=== PATIENT | female | born 1990 | race Caucasian/White ===

== ENCOUNTER 2018-07-05 10:23 | Emergency (ER) | payer OTHER ==
[2018-07-05 11:00] LABS: Absolute Lymphocytes (CBC) 1.4 K/uL (0.7-4.9); Absolute Monocytes 0.3 K/uL (0.1-1.3); Absolute Neutrophil 5.6 K/uL (1.8-8.0); Basophils % 0.6 % (0-1.3); Eosinophils % 1.7 % (0-4.4); Hematocrit 35.6 % (36.0-45.0); Lymphocytes % 18.3 % (15.3-44.8); MPV 7.8 fL (7.6-11.3); Monocytes % 4.1 % (3.3-12.3); RBC Red Blood Cell Count 4.24 M/uL (3.86-4.86)
[2018-07-05 11:32] LABS: BUN Blood Urea Nitrogen 6 mg/dL (7-18); Bicarbonate 23 mmol/L (21-32); Glucose Level 188 mg/dL (74-106); HCG, Quantitative 28109 mIU/mL (1-3); Potassium 3.6 mmol/L (3.5-5.1); Sodium Level 140 mmol/L (136-145)
[2018-07-05 12:16] LABS: Urine Bacteria 20-50 /HPF (<20)
[2018-07-05 12:17] LABS: Urine Amorphous Sediment 3+ /HPF (NONE SEEN); Urine Culture Reflex Order REFLEXED; Urine Mucus 1+ /HPF (NONE SEEN); Urine Yeast PRESENT (NONE SEEN)
--- NOTE | 2018-07-05 12:19 | ER ---
Nurse's Notes [facility] Name: Jessica Kearns Age: 27 yrs Sex: Female : 1990 Arrival Date: 07/05/2018 Time: 10:27 Bed 20 Private MD: Diagnosis: Threatened ;Candidiasis of vulva and vagina;Urinary tract infection, site not specified Presentation: 07/05 10:31 Presenting complaint: Patient states: I had some vaginal bleeding with small clots, I sg contacted by Senior Revenue Accountant at [facility] and they instructed me to come to the ER for evaluation due to the bleeding and how far along I am. Transition of care: patient was not received from another setting of care. Onset of symptoms was July 05, 2018. Risk Assessment: Do you want to hurt yourself or someone else? Patient reports no desire to harm self or others. Initial Sepsis Screen: Does the patient meet any 2 criteria? No. Patient's initial sepsis screen is negative. Does the patient have a suspected source of infection? No. Patient's initial sepsis screen is negative. Care prior to arrival: None. 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 - Social history:: Smoking status: Patient/guardian denies using tobacco. - Ebola Screening: : Patient negative for fever greater than or equal to 101.5 degrees Fahrenheit, and additional compatible Ebola Virus Disease symptoms Patient denies exposure to infectious person Patient denies travel to an Ebola-affected area in the 21 days before illness onset No symptoms or risks identified at this time. Screenin:50 Abuse screen: Denies threats or abuse. Denies injuries from another. Nutritional aj1 screening: No deficits noted. Tuberculosis screening: No symptoms or risk factors identified. 12:33 Fall Risk None identified. la1 Assessment: 10:50 General: Appears in no apparent distress. comfortable. aj1 10:50 Obstetrical Assessment: Patient reports vaginal bleeding. Pain: Pain: Denies pain. aj1 Neuro: Level of Consciousness is awake, alert, obeys commands. Cardiovascular: Patient's skin is warm and dry. Respiratory: Airway is patent Respiratory effort is even, unlabored, Respiratory pattern is regular, symmetrical. GI: No signs and/or symptoms were reported involving the gastrointestinal system. : Reports vaginal bleeding that is bright red, with clots. EENT: No signs and/or symptoms were reported regarding the EENT system. Derm: No signs and/or symptoms reported regarding the dermatologic system. Skin is pink, warm \T\ dry. normal. Musculoskeletal: No signs and/or symptoms reported regarding the musculoskeletal system. Circulation, motion, and sensation intact. 10:51 Reassessment: Dr. Briggs at bedside to perform ultrasound. aj1 10:52 Pain:. aj1 12:32 Reassessment: Patient appears in no apparent distress at this time. No changes from la1 previously documented assessment. Patient and/or family updated on plan of care and expected duration. Pain level reassessed. Patient is alert, oriented x 3, equal unlabored respirations, skin warm/dry/pink. Vital Signs: 10:30 BP 102 / 64; Pulse 100; Resp 17; Temp 98.6; Pulse Ox 100% on R/A; Weight 97.52 kg; sg Height 5 ft. 3 in. (160.02 cm); Pain 0/10; 12:32 BP 104 / 64; Pulse 94; Resp 18; Temp 98.2; Pulse Ox 100% on R/A; la1 10:30 Body Mass Index 38.09 (97.52 kg, 160.02 cm) sg ED Course: 10:27 Patient arrived in ED. sg 10:28 Maddison Pace FNP-C is [facility]. kb 10:28 Hang Briggs MD is Attending Physician. kb 10:33 Triage completed. sg 10:33 Arm band placed on. sg 10:37 Lisbeth Dueñas, LILLY is Primary Nurse. aj1 10:50 Patient has correct armband on for positive identification. aj1 10:50 Inserted saline lock: 22 gauge in right antecubital area, using aseptic technique. aj1 Blood collected. 10:50 No provider procedures requiring assistance completed. aj1 11:25 Urine collected: clean catch specimen, cloudy. dh3 12:33 IV discontinued, intact, bleeding controlled, No redness/swelling at site. Pressure la1 dressing applied. Administered Medications: No medications were administered Outcome: 12:18 Discharge ordered by . augusto 12:33 Discharged to home ambulatory. la1 12:33 Condition: good 12:33 Discharge instructions given to patient, Instructed on discharge instructions, follow up and referral plans. medication usage, Demonstrated understanding of instructions, follow-up care, medications, Prescriptions given X 1. 12:34 Patient left the ED. la1 Signatures: Maddison Pace, HANDTOOLS REPAIRER-C HANDTOOLS REPAIRER-CkLisbeth Wallace RN RN aj1 Teddy Lora RN RN sg Tanmay Cnadelario RN RN la1 Arianna Song 3 Corrections: (The following items were deleted from the chart) 10:54 10:52 General: Appears in no apparent distress. comfortable, aj1 aj1
--- NOTE | 2018-07-05 12:20 | EDPHYS ---
Physician Documentation [facility] Name: Jessica Kearns Age: 27 yrs Sex: Female : 1990 Arrival Date: 07/05/2018 Time: 10:27 Bed 20 Private MD: ED Physician Hang Briggs HPI: 07/05 10:35 This 27 yrs old Female presents to ER via Ambulatory with complaints of kb Vaginal Bleeding, + Preg <12wks. 10:35 The patient presents to the emergency department with vaginal bleeding, that is light. kb The estimated gestational age is 13 weeks. course: care: at a clinic, Leakage of Fluid: none appreciated, Ultrasound: the patient had an ultrasound, which was normal. Previous pregnancies: in previous pregnancies patient has had. Associated signs and symptoms: Pertinent positives: vaginal bleeding, Pertinent negatives: abdominal pain, chest pain, diarrhea, dysuria, fever, frequency, nausea, ruptured membranes, seizure, shortness of breath, vaginal discharge, vomiting. The patient has not experienced similar symptoms in the past. The patient has not recently seen a physician. 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 Called OB and was told to get kb checked out as precaution. Reports she has had 2 US that confirmed IUP and everything was normal. 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 - Social history:: Smoking status: Patient/guardian denies using tobacco. - Ebola Screening: : Patient negative for fever greater than or equal to 101.5 degrees Fahrenheit, and additional compatible Ebola Virus Disease symptoms Patient denies exposure to infectious person Patient denies travel to an Ebola-affected area in the 21 days before illness onset No symptoms or risks identified at this time. ROS: 10:34 Constitutional: Negative for fever, chills, and weight loss, Cardiovascular: Negative kb for chest pain, palpitations, and edema, Respiratory: Negative for shortness of breath, cough, wheezing, and pleuritic chest pain, Abdomen/GI: Negative for abdominal pain, nausea, vomiting, diarrhea, and constipation, Back: Negative for injury and pain, MS/Extremity: Negative for injury and deformity, Skin: Negative for injury, rash, and discoloration, Neuro: Negative for headache, weakness, numbness, tingling, and seizure. 10:34 : Positive for vaginal bleeding. Exam: 10:33 Constitutional: This is a well developed, well nourished patient who is awake, alert, kb and in no acute distress. Head/Face: Normocephalic, atraumatic. Chest/axilla: Normal chest wall appearance and motion. Nontender with no deformity. No lesions are appreciated. Cardiovascular: Regular rate and rhythm with a normal S1 and S2. No gallops, murmurs, or rubs. Normal PMI, no JVD. No pulse deficits. Respiratory: Lungs have equal breath sounds bilaterally, clear to auscultation and percussion. No rales, rhonchi or wheezes noted. No increased work of breathing, no retractions or nasal flaring. Skin: Warm, dry with normal turgor. Normal color with no rashes, no lesions, and no evidence of cellulitis. MS/ Extremity: Pulses equal, no cyanosis. Neurovascular intact. Full, normal range of motion. Neuro: Awake and alert, GCS 15, oriented to person, place, time, and situation. Cranial nerves II-XII grossly intact. Motor strength 5/5 in all extremities. Sensory grossly intact. Cerebellar exam normal. Normal gait. 10:33 Abdomen/GI: Inspection: abdomen appears normal, Bowel sounds: normal, in all quadrants, Palpation: soft, in all quadrants, mild abdominal tenderness, in the right lower quadrant and left lower quadrant. Vital Signs: 10:30 BP 102 / 64; Pulse 100; Resp 17; Temp 98.6; Pulse Ox 100% on R/A; Weight 97.52 kg; sg Height 5 ft. 3 in. (160.02 cm); Pain 0/10; 12:32 BP 104 / 64; Pulse 94; Resp 18; Temp 98.2; Pulse Ox 100% on R/A; la1 10:30 Body Mass Index 38.09 (97.52 kg, 160.02 cm) MDM: 10:28 Patient medically screened. kb 10:33 Data reviewed: vital signs, nurses notes. Data interpreted: Pulse oximetry: on room air kb is 100 %. Interpretation: normal. 11:09 ED course: Bedside US performed by me. FHT obtained 146. . kb 12:17 Counseling: I had a detailed discussion with the patient and/or guardian regarding: the kb historical points, exam findings, and any diagnostic results supporting the discharge/admit diagnosis, lab results, the need for outpatient follow up, an OB/Gyne specialist, to return to the emergency department if symptoms worsen or persist or if there are any questions or concerns that arise at home. 07/05 10:32 Order name: Quantitative Hcg; Complete Time: 11:54 kb 07/05 10:32 Order name: Abo/rh Typing; Complete Time: 11:54 kb 07/05 10:32 Order name: Basic Metabolic Panel; Complete Time: 11:54 kb 07/05 10:32 Order name: CBC with Diff; Complete Time: 11:08 kb 07/05 11:25 Order name: Urine Microscopic Only; Complete Time: 12:17 kb 07/05 11:27 Order name: Urine Dipstick--Ancillary (enter results); Complete Time: 12:33 ms 07/05 10:32 Order name: IV Saline Lock; Complete Time: 10:51 kb 07/05 10:32 Order name: Labs collected and sent; Complete Time: 10:51 kb 07/05 10:32 Order name: NPO; Complete Time: 10:51 kb 07/05 11:17 Order name: Urine Dipstick-Ancillary (obtain specimen); Complete Time: 11:26 kb 07/05 11:27 Order name: Urine --Ancillary (enter results); Complete Time: 12:33 ms 07/05 12:19 Order name: Urine Culture EDMS Administered Medications: No medications were administered Disposition: 22:08 Co-signature as Attending Physician, Hang Briggs MD Available for consultation at ps1 all times . Disposition: 07/05/18 12:18 Discharged to Home. Impression: Threatened , Candidiasis of vulva and vagina, Urinary tract infection, site not specified. - Condition is Stable. - Discharge Instructions: Vaginal Bleeding During , Second Trimester, and Urinary Tract Infection, Threatened Miscarriage, [id number], Pelvic Rest. - Prescriptions for Macrobid 100 mg Oral Capsule - take 1 capsule by ORAL route every 12 hours for 5 days; 10 capsule. - Work release form, Medication Reconciliation Form, Thank You Letter, Antibiotic Education, Prescription Opioid Use form. - Follow up: Emergency Department; When: As needed; Reason: Worsening of condition. Follow up: Private Physician; When: 2 - 3 days; Reason: Recheck today's complaints, Continuance of care, Re-evaluation by your physician. Signatures: Dispatcher [employer] EDMaddison Castellanos, KACI MAHAN-Teddy Escalera, RN RN sg Tanmay Candelario RN RN la1 Hang Briggs MD MD ps1 Corrections: (The following items were deleted from the chart) 11:10 10:35 course: care: at a clinic, Leakage of Fluid: none appreciated, kb Ultrasound: the patient had an ultrasound, which was normal, kb 12:34 12:18 07/05/2018 12:18 Discharged to Home. Impression: Threatened ; Candidiasis la1 of vulva and vagina; Urinary tract infection, site not specified. Condition is Stable. Discharge Instructions: Vaginal Bleeding During , Second Trimester, Threatened Miscarriage, [id number], Pelvic Rest. Forms are Medication Reconciliation Form, Thank You Letter, Antibiotic Education, Prescription Opioid Use. Follow up: Emergency Department; When: As needed; Reason: Worsening of condition. Follow up: Private Physician; When: 2 - 3 days; Reason: Recheck today's complaints, Continuance of care, Re-evaluation by your physician. kb
[2018-07-05 12:32] LABS: Urine Blood 3+ (NEG); Urine Glucose 3+ (NEG); Urine Protein TRACE (NEG); Urine pH 5.5 (5.0-7.0)
== END 2018-07-05 12:34 | disposition home or self-care (01) ==
LOC: ER 10:23
DX: O20.0 Threatened abortion (principal); O98.811 Other maternal infectious and parasitic diseases complicating pregnancy, first trimester; B37.3 Candidiasis of vulva and vagina; O23.41 Unspecified infection of urinary tract in pregnancy, first trimester; Z3A.13 13 weeks gestation of pregnancy
CPT/HCPCS: 36415; 80048; 81003; 81015; 81025; 84702; 85025; 86900; 86901; 87086; 87088; 99283

== ENCOUNTER 2018-10-09 23:58 | Emergency (ER) | payer OTHER ==
--- OUTSIDE RECORDS SUMMARY | 2018-10-10 00:03 | XMS REPORT ---
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 (test code=NE%) 61.5 % 35.0-73.0 LYMPH % (test code=LY%) 27.6 % 20.0-55.0 MONO % (test code=MO%) 6.8 % 2.5-10.0 EOSINOPH % (test code=EO%) 3.1 % 0.0-5.0 BASOPHIL % (test code=BA%) 0.7 % 0.0-2.0 IG % (test code=IG%) 0.3 % 0.0-0.8 NRBC% (test code=NRBC%) 0.0 % 0.0-0.2 MANDIFF (test code=MDIFF) NO NO RBC MORPH (test code=RBCMOR) NORMAL SERUM [id number] 17:52:00 Test Item Value Reference Range Comments PREG SRM (test code=PGS) NEGATIVE NEGATIVE
[2018-10-10] MEDS ORDERED: NA CHLORIDE 0.9% 1,000 ML ONE (01:14)
[2018-10-10 01:38] LABS: Absolute Lymphocytes (CBC) 1.8 K/uL (0.7-4.9); Basophils % 0.4 % (0-1.3); Hematocrit 30.7 % (36.0-45.0); Lymphocytes % 24.1 % (15.3-44.8); MPV 8.1 fL (7.6-11.3); RBC Red Blood Cell Count 3.94 M/uL (3.86-4.86)
[2018-10-10 01:46] LABS: Urine Blood NEGATIVE (NEG); Urine Glucose NEGATIVE (NEG); Urine Protein TRACE (NEG); Urine Specific Gravity 1.025 (1.005-1.030); Urine pH 6.5 (5.0-7.0)
[2018-10-10 01:48] LABS: ALT/SGPT 7 U/L (12-78); AST/SGOT 7 U/L (15-37); Albumin 2.4 g/dL (3.4-5.0); Alkaline Phosphatase 103 U/L (45-117); BUN Blood Urea Nitrogen 6 mg/dL (7-18); Bicarbonate 22 mmol/L (21-32); Bilirubin Total 0.3 mg/dL (0.2-1.0); Glucose Level 160 mg/dL (74-106); Potassium 3.6 mmol/L (3.5-5.1); Protein, Total 6.3 g/dL (6.4-8.2); Sodium Level 139 mmol/L (136-145)
[2018-10-10 02:27] LABS: Calcium Oxalate Crystals- Ur FEW (NONE SEEN); Urine Bacteria <20 /HPF (<20); Urine Culture Reflex Order NOT NEEDED; Urine RBC <5 /HPF (NONE SEEN)
--- NOTE | 2018-10-10 03:31 | ER ---
Nurse's Notes [facility] Name: Jessica Kearns Age: 28 yrs Sex: Female : 1990 Arrival Date: 10/10/2018 Time: 00:06 Bed 16 Private MD: Diagnosis: Lightheaded;Gestational Diabetes;High risk Presentation: 10/10 00:09 Presenting complaint: EMS states: Called for patient who was [place] [address] [place] tr5 she all of a sudden became dizzy, light headed, felt like she was going to pass out; Patient is about 30 weeks ; Vitals WNL per EMS, 105/71, HR 98, RR 18, 98% on RA; Hx of diabetes, patient states last meal at 1800. Transition of care: patient was not received from another setting of care. Onset of symptoms was October 10, 2018. Risk Assessment: Do you want to hurt yourself or someone else? Patient reports no desire to harm self or others. Initial Sepsis Screen: Does the patient meet any 2 criteria? No. Patient's initial sepsis screen is negative. Does the patient have a suspected source of infection? No. Patient's initial sepsis screen is negative. Note Patient states she has not taken her Insulin x 1 week due to no prescription. Care prior to arrival: Glucose check: 139. 00:09 Method Of Arrival: EMS: [facility] tr5 00:09 Acuity: BAYLEE 3 tr5 Triage Assessment: 00:00 General: Appears in no apparent distress. Behavior is calm. Neuro: Level of tr5 Consciousness is awake, alert, obeys commands, Oriented to person, place, time, situation. Respiratory: Respiratory effort is even, unlabored. Derm: Skin is intact, Skin is dry, Skin is normal. 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 - Social history:: Smoking status: Patient/guardian denies using tobacco. - Ebola Screening: : No symptoms or risks identified at this time. Screenin:05 Abuse screen: Denies threats or abuse. Nutritional screening: No deficits noted. tr5 Tuberculosis screening: No symptoms or risk factors identified. Fall Risk None identified. Assessment: 00:00 Reassessment: heart tones in 130's per L\T\D. tr5 00:06 Pain: Denies pain. tr5 00:55 Reassessment: L\T\D at pt's beside. Per Dr. Mejia to recheck heart tones with tr5 Doppler. L\T\D RN reports heart tones to be in the 140's. 01:26 Reassessment: Patient and/or family updated on plan of care and expected duration. Pain tr5 level reassessed. Patient is alert, oriented x 3, equal unlabored respirations, skin warm/dry/pink. 02:30 Reassessment: Patient and/or family updated on plan of care and expected duration. Pain tr5 level reassessed. Patient is alert, oriented x 3, equal unlabored respirations, skin warm/dry/pink. Patient denies pain at this time. 03:23 Reassessment: Patient and/or family updated on plan of care and expected duration. Pain tr5 level reassessed. Patient is alert, oriented x 3, equal unlabored respirations, skin warm/dry/pink. Patient states feeling better. Vital Signs: 10/09 23:50 BP 106 / 71; Pulse 88; tr5 10/10 00:10 BP 106 / 53; Pulse 90; Resp 18; Temp 98.5(O); Pulse Ox 97% on R/A; Weight 89.81 kg; tr5 Height 4 ft. 11 in. (149.86 cm); Pain 0/10; 01:25 BP 109 / 68; Pulse 94; Resp 16; Pulse Ox 100% on R/A; tr5 02:30 BP 110 / 72; Pulse 90; Resp 16; Pulse Ox 99% on R/A; tr5 00:10 Body Mass Index 39.99 (89.81 kg, 149.86 cm) tr5 ED Course: 00:00 Inserted saline lock: 20 gauge in left antecubital area, using aseptic technique. By tr5 L\T\D. 00:05 Patient has correct armband on for positive identification. Placed in gown. Bed in low tr5 position. Call light in reach. Door closed. Noise minimized. Warm blanket given. 00:06 Patient arrived in ED. tr5 00:11 Hang Briggs MD is Attending Physician. ps1 00:11 Triage completed. tr5 00:12 Arm band placed on left wrist. tr5 00:16 Gulshan Mckeon, RN is Primary Nurse. tr5 04:00 No provider procedures requiring assistance completed. IV discontinued. tr5 Administered Medications: 01:00 Drug: NS 0.9% 1000 ml Route: IV; Rate: 1000 ml; Site: left antecubital; tr5 Point of Care Testing: Blood Glucose: 00:00 Blood Glucose: 188 mg/dL; tr5 Ranges: Outcome: 03:30 Discharge ordered by MD. ps1 04:00 Discharged to home ambulatory. tr5 04:00 Condition: stable 04:00 Discharge instructions given to patient, Instructed on discharge instructions, follow up and referral plans. Demonstrated understanding of instructions, follow-up care. 04:02 Patient left the ED. tr5 Signatures: Hang Briggs MD MD ps1 Gulshan Mckeon, RN RN tr5 Corrections: (The following items were deleted from the chart) 00:18 00:09 Presenting complaint: EMS states: Called for patient who was [place] [address] tr5 when she all of a sudden became dizzy, light headed, felt like she was going to pass out; Patient is about 30 weeks ; Vitals WNL per EMS; Hx of diabetes, patient states last meal at 1800 tr5
--- NOTE | 2018-10-10 03:32 | EDPHYS ---
Physician Documentation [facility] Name: Jessica Kearns Age: 28 yrs Sex: Female : 1990 Arrival Date: 10/10/2018 Time: 00:06 Bed 16 Private MD: ED Physician Hang Briggs HPI: 10/10 03:23 This 28 yrs old Female presents to ER via EMS with complaints of Near Syncope.ps1 03:23 GDM IDDM. Previous preg . Poor control. Unknown A1C. States her BS is ps1 typically high. Sees Dr. Moreno no high risk. Presenting for lightheaded after singing [place]. States that she believed she was hypoglycemic and hypotensive. Her BP was normal and BS WNL. No cramp, VB, CTX, LOM. 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 - Social history:: Smoking status: Patient/guardian denies using tobacco. - Ebola Screening: : No symptoms or risks identified at this time. ROS: 03:23 Constitutional: Negative for fever, chills, and weight loss, Eyes: Negative for injury, ps1 pain, redness, and discharge, ENT: Negative for injury, pain, and discharge, Cardiovascular: Negative for chest pain, palpitations, and edema, Respiratory: Negative for shortness of breath, cough, wheezing, and pleuritic chest pain, Abdomen/GI: Negative for abdominal pain, nausea, vomiting, diarrhea, and constipation, Back: Negative for injury and pain, MS/Extremity: Negative for injury and deformity, Skin: Negative for injury, rash, and discoloration. 03:23 Neuro: Positive for near syncope. Exam: 03:23 Constitutional: This is a well developed, well nourished patient who is awake, alert, ps1 and in no acute distress. Head/Face: Normocephalic, atraumatic. Eyes: Pupils equal round and reactive to light, extra-ocular motions intact. Lids and lashes normal. Conjunctiva and sclera are non-icteric and not injected. Chest/axilla: Normal chest wall appearance and motion. Nontender with no deformity. No lesions are appreciated. Cardiovascular: Regular rate and rhythm. No gallops, murmurs, or rubs. Normal PMI, no JVD. No pulse deficits. Respiratory: Lungs have equal breath sounds bilaterally, clear to auscultation and percussion. No rales, rhonchi or wheezes noted. No increased work of breathing, no retractions or nasal flaring. Abdomen/GI: Soft, non-tender, with normal bowel sounds. No distension or tympany. No guarding or rebound. No evidence of tenderness throughout. 03:23 Skin: Warm, dry with normal turgor. Normal color with no rashes, no lesions, and no evidence of cellulitis. MS/ Extremity: Pulses equal, no cyanosis. Neurovascular intact. Full, normal range of motion. Neuro: Awake and alert, GCS 15, oriented to person, place, time, and situation. Cranial nerves II-XII grossly intact. Sensory grossly intact. 03:23 Abdomen/GI: GRAVID.. Vital Signs: 10/09 23:50 BP 106 / 71; Pulse 88; tr5 10/10 00:10 BP 106 / 53; Pulse 90; Resp 18; Temp 98.5(O); Pulse Ox 97% on R/A; Weight 89.81 kg; tr5 Height 4 ft. 11 in. (149.86 cm); Pain 0/10; 01:25 BP 109 / 68; Pulse 94; Resp 16; Pulse Ox 100% on R/A; tr5 02:30 BP 110 / 72; Pulse 90; Resp 16; Pulse Ox 99% on R/A; tr5 00:10 Body Mass Index 39.99 (89.81 kg, 149.86 cm) tr5 MDM: 00:53 Patient medically screened. ps1 03:30 Data reviewed: vital signs, nurses notes, lab test result(s), and as a result, I will ps1 discharge patient. Counseling: I had a detailed discussion with the patient and/or guardian regarding: the historical points, exam findings, and any diagnostic results supporting the discharge/admit diagnosis, lab results, the need for outpatient follow up, an OB/Gyne specialist, to return to the emergency department if symptoms worsen or persist or if there are any questions or concerns that arise at home. ED course: Observed in OB triage and ED. Labs cw mild dehydration. Pt to follow up with Dr. Moreno for reevaluation. . 10/10 00:44 [facility] name[facility] 10/10 00:44 Order name: CMP ps1 10/10 00:44 Order name: [facility]c [facility] 10/10 01:12 Order name: Urine Dipstick--Ancillary (enter results) cm6 10/10 01:13 Order name: Urine Microscopic Only; Complete Time: 02:28 cm6 10/10 01:42 Order name: CBC with Automated Diff EDIL 10/10 00:44 Order name: Urine Dipstick-Ancillary (obtain specimen); Complete Time: 01:12 ps1 10/10 00:44 Order name: EKG; Complete Time: 00:46 ps1 10/10 00:57 Order name: EKG - Nurse/Tech; Complete Time: 01:25 tr5 10/10 01:47 Order name: Urine Dipstick-Ancillary; Complete Time: 01:47 EDMS 10/10 01:48 Order name: Comprehensive Metabolic Panel [facility] 10/10 02:56 Order name: Hemoglobin A1c [facility]IL Administered Medications: 01:00 Drug: NS 0.9% 1000 ml Route: IV; Rate: 1000 ml; Site: left antecubital; tr5 Point of Care Testing: Blood Glucose: 00:00 Blood Glucose: 188 mg/dL; tr5 Ranges: Critical Glucose Levels:Adult <50 mg/dl or >400 mg/dl <40 mg/dl or >180 mg/dl Disposition: 10/10/18 03:30 Discharged to Home. Impression: Lightheaded, Gestational Diabetes, High risk . - Condition is Stable. - Discharge Instructions: Dehydration, Adult, Gestational Diabetes Mellitus, Diagnosis. - Medication Reconciliation Form, Thank You Letter, Antibiotic Education, Prescription Opioid Use form. - Follow up: Private Physician; When: Tomorrow; Reason: Further diagnostic work-up, Recheck today's complaints, Continuance of care. Follow up: Emergency Department; When: As needed; Reason: If symptoms return, Worsening of condition. - Problem is an ongoing problem. - Symptoms have improved. Signatures: Dispatcher [employer] EDHang Butterfield MD MD ps1 Gulshan Mckeon RN RN tr5 Corrections: (The following items were deleted from the chart) 04:02 03:30 10/10/2018 03:30 Discharged to Home. Impression: Lightheaded; Gestational tr5 Diabetes; High risk . Condition is Stable. Forms are Medication Reconciliation Form, Thank You Letter, Antibiotic Education, Prescription Opioid Use. Follow up: Private Physician; When: Tomorrow; Reason: Further diagnostic work-up, Recheck today's complaints, Continuance of care. Follow up: Emergency Department; When: As needed; Reason: If symptoms return, Worsening of condition. Problem is an ongoing problem. Symptoms have improved. ps1
--- NOTE | 2018-10-10 07:33 | EKG ---
Test Date: 2018-10-10 Test Time: 01:20:36 Web Software Engineer: TR MEASUREMENT RESULTS: Intervals: Rate: 82 [place]: 140 QRSD: 78 QT: 388 QTc: 453 [place]: P: 24 [place]: 140 QRS: 24 T: -1 INTERPRETIVE STATEMENTS: Normal sinus rhythm Normal ECG No previous ECG available for comparison Electronically Signed On 10-10-18 07:33:14 CDT by Chu Parnell
== END 2018-10-10 04:02 | disposition home or self-care (01) ==
LOC: ER 23:58
DX: O24.414 Gestational diabetes mellitus in pregnancy, insulin controlled (principal); O09.93 Supervision of high risk pregnancy, unspecified, third trimester; Z3A.29 29 weeks gestation of pregnancy; Z88.0 Allergy status to penicillin; Z91.018 Allergy to other foods
CPT/HCPCS: 93005; 85025; 36415; 83036; 80053; 99284; J7030; 81003; 81015

== ENCOUNTER 2020-06-27 18:38 | Emergency (ER) | payer OTHER ==
--- OUTSIDE RECORDS SUMMARY | 2020-06-27 18:42 | XMS REPORT | Continuity of Care Document ---
:1990 Author Organization [facility] t Address [address] [place] [address] Care Team Providers Name Role Phone Elia Rodrigez DO Attending Clinician Vivek AVILEZ Attending Clinician Leodan Moreno MD Attending Clinician Tenzin AVILEZ L Attending Clinician Adelaide LOMBARDO Attending Clinician Unavailable Jeannette CAMPBELL Attending Clinician Unavailable DR HUMPHREY Attending Clinician Unavailable Doyle ESCOBAR Attending Clinician Unavailable DR GERALDINE Attending Clinician Unavailable Adelaide LOMBARDO Admitting Clinician Unavailable Jeannette CAMPBELL Admitting Clinician Unavailable DR HUMPHREY Admitting Clinician Unavailable Doyle ESCOBAR Admitting Clinician Unavailable DR GERALDINE Admitting Clinician Unavailable Problems Condition Condition Condition Status Onset Resolution Last Treating Co mments Source Name Details Category Date Date Treatment Clinician Date Toothache Toothache Problem Active 2019-03 [facility] 03[facility] Relationsh Relationsh Problem Active 2019-03 M at[facility] ip ip 03-20 da problems Problems 00:00: [facility] 00 [facility] 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 Post-traum 8- da atic atic 00:00: [facility] stress Stress 00 al disorder Disorder Health Outreac h Program Bipolar Bipolar Problem Active [facility] disorder Disorder 10-13 da 00:00: [facility] Morbid Morbid Problem Active [facility] obesity obesity [facility] due to due to l excess excess Outpati calories calories ent Clinics Body mass Body mass Problem Active [facility] index index [facility] - (BMI) (BMI) Memoria 40.0-44.9, 40.0-44.9, l adult adult [facility] 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 2 [facility] - diabetes diabetes Mem[facility] a mellitus mellitus l with with [facility] hyperglyce hyperglyce en t [facility] Clinics Shortness Shortness Problem Active [facility] of breath of breath [facility] - [facility] l [facility] Clinics Allergies, Adverse Reactions, Alerts Allergy Allergy Status Severity Reaction(s) Onset Inactive Treating Comm ents Source Name Type Date Date Clinician Pomrenateran Adverse Active anaphylaxis [facility] ate Reaction [facility] - [facility] Penicill Adverse Active hives [facility] amine Reaction [facility] - [facility] Adverse Active Info Not [facility] t y Reaction Available [facility] Social History Smoking Status Start Date Stop Date Source Former Smoker Jeanne Hernandez [facility] Health Outreach Program Medications Ordered Filled Start Stop Current Ordering Indication Dosage Frequency Signature Comments Components Source Medication Medication Date Date Medication? Clinician (SIG) Name Name Glimepiride Glimepiride Yes Juhi [address] [facility] 9-16 Millender with [facility] - 00:00: breakfast Memoria 00 or the l first main Outpati meal of ent the day Clinics glimepiride glimepiride No glimepirid [place] 2 mg tablet 2 mg tablet e 2 mg da TAKE 1 TAKE 1 tablet [facility] TABLET BY TABLET BY TAKE 1 al MOUTH EVERY MOUTH EVERY TABLET BY Health DAY WITH DAY WITH MOUTH Outrea c BREAKFAST BREAKFAST EVERY DAY h OR FIRST OR FIRST WITH Program MAIN MEAL MAIN MEAL BREAKFAST OF THE DAY OF THE DAY OR FIRST MAIN MEAL OF THE DAY Humulin N Humulin N No Humulin N [place] NPH U-100 NPH U-100 NPH U-100 da Insulin Insulin Insulin [facility] (isophane (isophane (isophane al susp) 100 susp) 100 susp) 100 Health unit/mL unit/mL unit/mL Outrea c subcutaneou subcutaneou subcutaneo h s s Program Humulin R Humulin R No Humulin R [place] Regular Regular Regular da U-100 U-100 U-100 [facility] Insulin 100 Insulin 100 Insulin al unit/mL unit/mL 100 Health injection injection unit/mL Ou treac solution solution injection h solution Program ibuprofen ibuprofen No ibuprofen [place] 600 mg tabs 600 mg tabs 600 mg da tabs [facility] oh [facility] Outre[facility] Program ibuprofen ibuprofen No ibuprofen [place] 600 mg 600 mg 600 mg da tablet tablet tablet [facility] metformin metformin No metformin [place] 1,000 mg 1,000 mg 1,000 mg da tablet tablet tablet Epis[facility]placed by [facility] metformin metformin No metformin [place] 500 mg 500 mg 500 mg da tablet TAKE tablet TAKE tablet [facility] 1 TABLET BY 1 TABLET BY TAKE 1 al MOUTH TWICE MOUTH TWICE TABLET BY Health A DAY WITH A DAY WITH MOUTH Ou treac A MEAL A MEAL TWICE A h DAY WITH A Program MEAL metformin metformin No metformin [facility] hydrochlori hydrochlori hydrochlor da de 500 mg de 500 mg socorro 500 [facility] tabs tabs mg tabs oh Health Outreac h Program metronidazo metronidazo No metronidaz [place] le 500 mg le 500 mg ole 500 mg da tablet tablet tablet [facility] nitrofurant nitrofurant No nitrofuran [place] oin oin toin da monohydrate monohydrate monohydrat [facility] /macrocryst /macrocryst e/macrocry al als 100 mg als 100 mg stals 100 Health capsule capsule mg capsule Out reac h Program Nystop Nystop No Nystop [place] 100,000 100,000 100,000 da unit/gram unit/gram unit/gram [facility] topical topical topical al powder powder powder Health Outreac h Program onetouch onetouch No onetouch [facility] christiano ultra christiano ultra christiano da ultra [facility] OneTouch OneTouch No OneTouch [facility] Ultra Blue Ultra Blue Ultra Blue da Test Strip Test Strip Test Strip [facility] Program oseltamivir oseltamivir No oseltamivi [facility] 75 mg 75 mg r 75 mg da capsule capsule capsule [facility] al [facility] Outreac [facility] Program proair hfa proair hfa No proair hfa [place] 108 mcg/act 108 mcg/act 108 d a aers aers mcg/act [facility] aers al [facility] Outreac [facility] Program albuterol albuterol No albuterol [place] sulfate HFA sulfate HFA sulfate da 90 90 HFA 90 [facility] mcg/actuati mcg/actuati mcg/actuat al on aerosol on aerosol ion Hea lth inhaler inhaler aerosol Outrea c inhaler h Program aripiprazol aripiprazol No aripiprazo [place] e 10 mg e 10 mg le 10 mg da tabs tabs tabs [facility] al [facility] Outreac [facility] Program aripiprazol aripiprazol No aripiprazo [place] e 10 mg e 10 mg le 10 mg da tablet TAKE tablet TAKE tablet [facility] 1 TABLET BY 1 TABLET BY TAKE 1 al MOUTH EVERY MOUTH EVERY TABLET BY Health DAY IN THE DAY IN THE MOUTH Ou treac MORNING MORNING EVERY DAY h IN THE Program MORNING aspirin 81 aspirin 81 No aspirin 81 [facility] mg chewable mg chewable mg d a tablet tablet chewable [facility] tablet al Health Outreac h Program BD Veo BD Veo No BD Veo [place] Insulin Insulin Insulin da Syringe Syringe Syringe [facility] Ultra-Fine Ultra-Fine Ultra-Fine al 1/2 mL 31 1/2 mL 31 1/2 mL 31 Health gauge x gauge x gauge x Outrea c " " " h Program Katherin Pandey Yes Juhi 1 tablet [facility] CitraNatal CitraNatal No CitraNatal [place] Assure 35 Assure 35 Assure 35 da mg iron-1 mg iron-1 mg iron-1 [facility] mg-50 mg-50 mg-50 al mg-300 mg mg-300 mg mg-300 mg Health oral pack oral pack oral pack Outreac h Program citranatal citranatal No citranatal [place] assure assure assure da combo pack combo pack combo pack [facility] TAKE 1 TAKE 1 TAKE 1 al CAPSULE AND CAPSULE AND CAPSULE Health 1 TABLET BY 1 TABLET BY AND 1 Outreac MOUTH ONCE MOUTH ONCE TABLET BY h A DAY A DAY MOUTH ONCE Program A DAY fluconazole fluconazole No fluconazol [place] 150 mg 150 mg e 150 mg da tablet tablet tablet [facility] Outreac h Program fluconazole fluconazole No fluconazol [place] 200 mg 200 mg e 200 mg da tablet tablet tablet [facility] Outreac h Program FreeStyle FreeStyle No FreeStyle [place] Lancets 28 Lancets 28 Lancets 28 da gauge gauge gauge [facility] Outreac h Program FreeStyle FreeStyle No FreeStyle [facility] Lite Meter Lite Meter Lite Meter da kit kit kit [facility] Outreac h Program gabapentin gabapentin No gabapentin [place] 100 mg caps 100 mg caps 100 mg da caps [facility] Outreac h Program gabapentin gabapentin No gabapentin [place] 100 mg 100 mg 100 mg da capsule capsule capsule [facility] Outreac h Program glimepiride glimepiride No glimepirid [place] 2 mg tabs 2 mg tabs e 2 mg da tabs [facility] Outreac h Program Vital Signs Vital Name Observation Time Observation Value Comments Source Height 2019-05-11 00:00:00 59 [in_i] [place] [facility] BMI (Body Mass 2019-05-11 00:00:00 39.9 kg/m2 [place] [employer] Mandaen Index) Health Outreach Program Body Weight 2019-05-11 00:00:00 197.6 [lb_av] [place] Procedures This patient has no known procedures. Plan of Care Planned Activity Planned Date Details Comments Source Future Appointment 2020-07-04 16:00:00 Julio Pond, [address] , [place], [place] Program [phone] Encounters Start End Encounter Admission Attending Care Care Encounter Source Date/Time Date/Time Type Type Clinicians Facility Department ID 2020-05-30 2020-05-30 Nima BRYANT [place] - [id number] Rosamaria at[facility]or 00:00:00 00:00:00 Jeanne Martinez da PSYD: 17[address] [facility] Epi scop [place], [facility] Outre [address] h , Ph. Program (979) --20072020-05-24 2020-05-[address] [facility] [id number] 00:00:00 00:00:00 Outreach [facility] [id number] [facility] [id number] LULY [id number] 388 2020-03-29 2020-03-29 Nima BRYANT [place] - [id number] [facility] 00:00:00 00:00:00 SagOle murphy[place]orda da PSYD: 1700 [facility] [address] [facility] , Ph. Program (979) --20072020-03-08 2020-03-08 Nima ROSASAUSTIN [place] - [id number] M [facility] 00:00:00 00:00:00 Mari Martineza da PSYD: 1700 [facility] E[facility] sc[facility] [address] h , Ph. Program (979) --20072020-02-09 2020-02-09 Nima Wilfredo MANNY [place] - [id number] M [facility] 00:00:00 00:00:00 Ole Martinezagorda da PSYD: 1700 Manda[facility] Epi scop [facility] [address] h , Ph. Program (979) --20072020-02-08 2020-02-08 Julio MANNY [place] - [id number] M [facility] 00:00:00 00:00:00 Gabby Pond MD: [facility]anda[facility] Epi scop 1700 [facility]OP - [facility] [address] Progr am , Ph. (979) --20072020-01-19 2020-01-19 Nima Wilfredo MANNY [place] - [id number] M [facility] 00:00:00 00:00:00 Mari Martineza da PSYD: 1700 [facility] Epi scop [address], [facility] Outre [address] h , Ph. Program (979) --20072020-01-06 2020-01-06 Nima BRYANT [place] - [id number] M [facility] 00:00:00 00:00:00 Jeanne Martinez da PSYD: 1700 Manda[facility] Epi scop [address], [facility] Outre [address] h , Ph. Program (979) --20072019-12-23 2019-12-23 Nima BRYANT [place] - [id number] M at[facility] 00:00:00 00:00:00 Jeanne Martinez da PSYD: 1700 Mandaen Epi scop [address], [facility] Outre [address] h , Ph. Program (979) --20072019-12-09 2019-12-09 Nima BRYANT [place] - [id number] M at[facility] 00:00:00 00:00:00 Mari Martineza da PSYD: 1700 Manda[facility] Epi scop [facility] [address], [facility] Outre [address] h , Ph. Program (979) 2019-12-07 2019-12-07 Jaime Austin Doylen [facility] [id number] 00:00:00 00:00:00 Schriever [id number] [place] [id number] Taiio [id number] [address] 2019-11-24 2019-11-24 Nima BRYANT [place] - [id number] M at[facility]or 00:00:00 00:00:00 Mari Martineza da PSYD: 1700 Manda[facility] Epi scop [address], [facility] Outre [address] h , Ph. Program (979) -20072019-11-17 2019-11-17 [facility] [id number] 17:01:00 17:01:00 [facility] [place] 2019-11-10 2019-11-10 Nima BRYANT [place] - [id number] M [facility] 00:00:00 00:00:00 Jenane Martinez da PSYD: 1700 Mandaen Epi scop [facility] [address] h , Ph. Program (979) -20072019-10-27 2019-10-27 [facility] [id number] 14:40:00 14:40:00 [facility] 2019-10-19 2019-10-19 Julio BRYANT [place] - [id number] M [facility] 00:00:00 00:00:00 Gabby Pond MD: Mandaen Epi scop 1700 [facility] [address] [facility] , Ph. (979) --20072019-10-15 2019-10-[address] [facility] [id number] M atagor 00:00:00 00:00:00 Jeanne Martinez da PSYD: 1700 Manda[facility] Epi scop [facility] [address] h , Ph. Program (979) -20072019-09-21 2019-09-21 [address] Moreno [facility] [id number] 00:00:00 00:00:00 Leodan Velásquez [id number] Víctor [id number] Mary [phone] [address] 2019-09-02 2019-09-[address] [facility] [id number] 00:00:00 00:00:00 Management Roselyn Velásquez [id number] [place] [id number] Professio [id number] [address] 2019-09-02 2019-09-02 Telephone Ad, [facility] [id number] 00:00:00 00:00:00 Roselyn Velásquez [id number] [place] [id number] Professio [phone] [address] 2019-09-01 2019-09-01 Office Ad, [facility] [id number] 15:39:46 16:19:40 Visit Roselyn Velásquez [id number] [place] [id number] Professio [phone] [address] 2019-08-31 2019-08-31 Nima BRYANT [place] - [id number] M [facility] 00:00:00 00:00:00 Jeanne Martinez PSYD: 1700 [facility] E[facility]op [facility] [address] [facility] , Ph. Program (979) --20072019-08-19 2019-08-19 Nima ROSASAUSTIN [place] - [id number] M at[facility]or 00:00:00 00:00:00 Jeanne Martinez PSYD: 1700 [facility] Epi scop [place] [facility] [address] h , Ph. Program (979) --20072019-07-20 2019-07-20 Julio MEAUSTIN [place] - [id number] M at[facility]or 00:00:00 00:00:00 Gabby Pond MD: Mandaen Epi scop 1700 HOP - [facility] [address] [facility] , Ph. (979) --20072019-06-04 2019-06-04 [facility] [id number] 09:30:00 09:30:00 [facility] Medicine Outpati ent Clinics 2019-05-11 2019-05-11 Julio BRYANT [place] - [id number] M at[place]or 00:00:00 00:00:00 Gabby Pond MD: Mandaen Epi scop 1700 HOP - [facility] [address], [place] [address] Progr am , Ph. (979) -20072019-04-13 2019-04-13 Julio BRYANT [place] - [id number] M [facility] 00:00:00 00:00:00 Gabby Pond MD: Mandaen Epi scop 1700 HOP - [facility] [address], [place] [address] Progr am , Ph. (419) --20072018-12-15 2018-12-15 Nima BRYANT [place] - [id number] M at[facility]or 00:00:00 00:00:00 Jeanne Martinez da PSYD: 1700 Manda[facility] Epi scop [address] [facility] [address] [address] Progr am , Ph. (979) -20072017-09-12 2017-09-12 Emergency E MUNIRA, [facility] [id number] [place] 15:08:00 17:00:00 [facility] 2017-04-07 2017-04-07 Emergency E ADRIAN, [facility] [id number] [place] 11:39:00 [facility]16[facility] 2016-12-17 2016-12-17 Emergency E GERALDINE, [facility] [id number] [place] 11:05:00 13:47:00 YUKI [facility] Results Test Description Test Time Test Comments Results Result Comments Source COMPREHENSIVE METABOLIC ROSA 2017-09-12 16:38:00 Test Item Value Reference Range Interpretation Comme nts GLUCOSE (test code = 06D) 238 mg/dL 75-100 H SODIUM (test code = 01A) 139 mmol/L 136-145 POTASSIUM (test code = 01B) 3.5 mmol/L 3.6-5.1 L CHLORIDE (test code = 04A) 104 mmol/L 98-107 CO2 (test code = 02A) 27 mmol/L 22-32 ANION GAP (test code = ANG) 11.5 mmol/L BUN (test code = 05D) 10 mg/dL 7-18 CREATININE (test code = 03E) 0.6 mg/dL 0.4-1.1 BUN/CREA (test code = BCR) 17 12-20 CALCIUM (test code = 09D) 8.6 mg/dL 8.3-9.5 BILI TOTAL (test code = 11A) 0.5 mg/dL 0.2-1.0 PROTEIN (test code = 07D) 7.3 g/dL 6.4-8.2 ALBUMIN (test code = 08D) 3.5 g/dL 3.5-4.8 GLOBULIN (test code = GLB) 3.8 g/dL 1.5-3.8 ALB/GLOB (test code = AGRR) 0.9 1.0-2.6 L ALK PHOS (test code = 35A) 80 IU/L 42-121 AST (test code = 30A) 25 IU/L <=42 ALT (test code = 31A) 40 IU/L <=78 SERUM [id number] 16:29:00 Test Item Value Reference Range Interpretation Comments PREG SRM (test code = PGS) NEGATIVE NEGATIVE [id number] 16:29:00 Test Item Value Reference Range Interpretation Comments MAGNESIUM (test code = 48A) 1.9 mg/dL 1.8-2.4 CBC (INCLUDES AUTOMATED DIFFERENTIAL)2017-09-12 16:24:00 Test Item Value Reference Range Interpretation Comments WBC (test code = WBC) 9.0 10\\S\\3/uL 4.5-11.0 RBC (test code = RBC) 4.97 10\\S\\6/uL 4.30-5.70 HGB (test code = HBG) 13.8 g/dL 12.0-15.5 HCT (test code = HCT) 42.3 % 35.0-44.0 MCV (test code = MCV) 85.1 fL 81.0-99.0 MCH (test code = MCH) 27.8 pg 27.0-31.0 MCHC (test code = MCHC) 32.6 g/dL 32.0-36.0 RDW (test code = RDW) 12.4 % 11.5-14.5 PLT (test code = PLT) 233 10\\S\\3/uL 130-400 MPV (test code = MPV) 9.9 fL 9.4-12.4 NEUTROP # (test code = NE#) 5.8 10\\S\\3/uL 1.6-8.0 LYMPH # (test code = LY#) 2.5 10\\S\\3/uL 1.1-3.5 MONOCYTE # (test code = MO#) 0.4 10\\S\\3/uL 0.0-1.1 EOSINOPH # (test code = EO#) 0.2 10\\S\\3/uL 0.0-0.7 BASOPHIL # (test code = BA#) 0.1 10\\S\\3/uL 0.0-0.3 IG # (test code = IG#) 0.03 10\\S\\3/uL 0.00-0.06 NRBC # (test code = NRBC#) 0.00 10\\S\\3/uL 0.00-0.01 NEUTROPH % (test code = NE%) 64.4 % 35.0-73.0 LYMPH % (test code = LY%) 27.8 % 20.0-55.0 MONO % (test code = MO%) 4.5 % 2.5-10.0 EOSINOPH % (test code = EO%) 2.3 % 0.0-5.0 BASOPHIL % (test code = BA%) 0.7 % 0.0-2.0 IG % (test code = IG%) 0.3 % 0.0-0.8 NRBC% (test code = NRBC%) 0.0 % 0.0-0.2 MANDIFF (test code = MDIFF) NO NO RBC MORPH (test code = RBCMOR) NORMAL URINALYSIS WITH [id number] 16:20:00 Test Item Value Reference Range Interpretation Comments COLOR (test code = COLU) YELLOW YELLOW CLARITY (test code = CLA) CLOUDY CLEAR A GLUCOSE UR (test code = UA 3+ NEGATIVE A GLUCOSE) BILI UR (test code = BILE) NEGATIVE NEGATIVE KETONES UR (test code = NATHEN) 1+ NEGATIVE A SP GRAVITY (test code = SPGR) 1.037 1.005-1.030 H PH UR (test code = PH) 7.0 4.5-8.0 PROTEIN UR (test code = PU) 1+ NEGATIVE A UROBIL UR (test code = UROQ) 1.0 EU/dL 0.2-1.0 NITRITE UR (test code = NEGATIVE NEGATIVE NITRITE) BLOOD UR (test code = UA BLOOD) 3+ NEGATIVE A LEUK ES UR (test code = LEUK) 1+ NEGATIVE A WBC UR (test code = UWBC) 5 /HPF 0-5 RBC UR (test code = URBC) 30 /HPF 0-2 H EPITH UR (test code = UEPC) MANY /LPF FEW A BACTERIA UR (test code = UBACT) MODERATE /HPF NONE A CAST UR (test code = CAST) /LPF NONE CRYSTAL UR (test code = CRYU) / LPF NONE MUCUS UR (test code = MUC) / HPF NONE AMORPH UR (test code = TONI) / HPF NONE TRICH UR (test code = UTRICH) /HPF NONE YEAST UR (test code = UY) /HPF NONE SPERM UR (test code = USPERM) /HPF NONE CT HEAD W/O [id number] 15:43:03CT brain without contrastLocation code: [id number] HISTORY: R42: DIZZINESS AND GIDDINESS COMPARISON: None.TECHNIQUE: [...] No acute intracranial abnormality.XR KNEE LEFT 3 VIEWS 2017-04-07 12:23:24Left knee 3 viewsIndication painLocation R 16Comparison: None.Findings: The satisfactory. Joint spaces are preserved. No fracture,subluxation or dislocation. Soft tissues unremarkable.Impression: Normal study.GLUCOMETER GLUCOSE- LAB USE [id number] 09:03:00 Test Item Value Reference Range Interpretation Comments GLUCOMETER (test code = GMG) 319 mg/dL 70-100 H XR CHEST 2 [id number] 12:55:15PA and lateral chest, 2 viewsLocation code: [id number] HISTORY: Chest pain, hyperglycemiaCOMPARISON:01/07/2012COMMENTS: The lungs are clear and well inflated. The costophrenic angles aresharp. The card iomediastinal silhouette is unremarkable. The bones are intact.IMPRESSION: Stable chest with no acute abnormality.COMPREHENSIVE METABOLIC [id number] 12:47:00 Test Item Value Reference Range Interpretation Comments GLUCOSE (test code = 06D) 293 mg/dL 75-100 H SODIUM (test code = 01A) 134 mmol/L 136-145 L POTASSIUM (test code = 01B) 3.5 mmol/L 3.6-5.1 L CHLORIDE (test code = 04A) 100 mmol/L 98-107 CO2 (test code = 02A) 27 mmol/L 22-32 ANION GAP (test code = ANG) 10.5 mmol/L BUN (test code = 05D) 9 mg/dL 7-18 CREATININE (test code = 03E) 0.6 mg/dL 0.4-1.1 BUN/CREA (test code = BCR) 15 12-20 CALCIUM (test code = 09D) 9.3 mg/dL 8.3-9.5 BILI TOTAL (test code = 11A) 0.6 mg/dL 0.2-1.0 PROTEIN (test code = 07D) 7.7 g/dL 6.4-8.2 ALBUMIN (test code = 08D) 3.7 g/dL 3.5-4.8 GLOBULIN (test code = GLB) 4.0 g/dL 1.5-3.8 H ALB/GLOB (test code = AGRR) 0.9 1.0-2.6 L ALK PHOS (test code = 35A) 82 IU/L 42-121 AST (test code = 30A) 30 IU/L <=42 ALT (test code = 31A) 47 IU/L <=78 [id number] 12:41:00 Test Item Value Reference Range Interpretation Comments COLOR (test code = COLU) Yellow YELLOW A CLARITY (test code = CLA) Clear CLEAR GLUCOSE UR (test code = UA GLUCOSE) NEGATIVE NEGATIVE BILI UR (test code = BILE) NEGATIVE NEGATIVE KETONES UR (test code = NATHEN) NEGATIVE NEGATIVE SP GRAVITY (test code = SPGR) 1.014 1.005-1.030 PH UR (test code = PH) 6.0 4.5-8.0 PROTEIN UR (test code = PU) NEGATIVE NEGATIVE UROBIL UR (test code = UROQ) 0.2 EU/dL 0.2-1.0 NITRITE UR (test code = NITRITE) NEGATIVE NEGATIVE BLOOD UR (test code = UA BLOOD) NEGATIVE NEGATIVE LEUK ES UR (test code = LEUK) NEGATIVE NEGATIVE SERUM [id number] 12:40:00 Test Item Value Reference Range Interpretation Comments PREG SRM (test code = PGS) NEGATIVE NEGATIVE CBC (INCLUDES AUTOMATED DIFFERENTIAL)2017-01-09 12:35:00 Test Item Value Reference Range Interpretation Comments WBC (test code = WBC) 9.6 10\\S\\3/uL 4.5-11.0 RBC (test code = RBC) 5.21 10\\S\\6/uL 4.30-5.70 HGB (test code = HBG) 14.0 g/dL 12.0-15.5 HCT (test code = HCT) 42.6 % 35.0-44.0 MCV (test code = MCV) 81.8 fL 81.0-99.0 MCH (test code = MCH) 26.9 pg 27.0-31.0 L MCHC (test code = MCHC) 32.9 g/dL 32.0-36.0 RDW (test code = RDW) 12.6 % 11.5-14.5 PLT (test code = PLT) 215 10\\S\\3/uL 130-400 MPV (test code = MPV) 10.2 fL 9.4-12.4 NEUTROP # (test code = NE#) 6.6 10\\S\\3/uL 1.6-8.0 LYMPH # (test code = LY#) 2.3 10\\S\\3/uL 1.1-3.5 MONOCYTE # (test code = MO#) 0.5 10\\S\\3/uL 0.0-1.1 EOSINOPH # (test code = EO#) 0.2 10\\S\\3/uL 0.0-0.7 BASOPHIL # (test code = BA#) 0.1 10\\S\\3/uL 0.0-0.3 IG # (test code = IG#) 0.03 10\\S\\3/uL 0.00-0.06 NRBC # (test code = NRBC#) 0.00 10\\S\\3/uL 0.00-0.01 NEUTROPH % (test code = NE%) 68.1 % 35.0-73.0 LYMPH % (test code = LY%) 23.7 % 20.0-55.0 MONO % (test code = MO%) 4.9 % 2.5-10.0 EOSINOPH % (test code = EO%) 2.4 % 0.0-5.0 BASOPHIL % (test code = BA%) 0.6 % 0.0-2.0 IG % (test code = IG%) 0.3 % 0.0-0.8 NRBC% (test code = NRBC%) 0.0 % 0.0-0.2 MANDIFF (test code = MDIFF) NO NO RBC MORPH (test code = RBCMOR) NORMAL GLUCOMETER GLUCOSE- LAB USE [id number] 14:48:00 Test Item Value Reference Range Interpretation Comments GLUCOMETER (test code = 285 mg/dL 70-100 H Mete r ID: GMG) [id number] tor: [id number] JOE BOSS GLUCOMETER GLUCOSE- LAB USE [id number] 13:50:00 Test Item Value Reference Range Interpretation Comments GLUCOMETER (test code 348 mg/dL 70-100 H CLEANE D METERMeter ID: = GMG) [id number] tor: [id number] Kwon COMPREHENSIVE METABOLIC [id number] 13:50:00 Test Item Value Reference Range Interpretation Comments GLUCOSE (test code = 06D) 385 mg/dL 75-100 H SODIUM (test code = 01A) 135 mmol/L 136-145 L POTASSIUM (test code = 01B) 3.8 mmol/L 3.6-5.1 CHLORIDE (test code = 04A) 99 mmol/L 98-107 CO2 (test code = 02A) 26 mmol/L 22-32 ANION GAP (test code = ANG) 13.8 mmol/L BUN (test code = 05D) 8 mg/dL 7-18 CREATININE (test code = 03E) 0.7 mg/dL 0.4-1.1 BUN/CREA (test code = BCR) 12 12-20 CALCIUM (test code = 09D) 10.1 mg/dL 8.3-9.5 H BILI TOTAL (test code = 11A) 0.4 mg/dL 0.2-1.0 PROTEIN (test code = 07D) 8.1 g/dL 6.4-8.2 ALBUMIN (test code = 08D) 3.9 g/dL 3.5-4.8 GLOBULIN (test code = GLB) 4.2 g/dL 1.5-3.8 H ALB/GLOB (test code = AGRR) 0.9 1.0-2.6 L ALK PHOS (test code = 35A) 90 IU/L 42-121 AST (test code = 30A) 60 IU/L <=42 H ALT (test code = 31A) 68 IU/L <=78 URINALYSIS WITH [id number] 13:38:00 Test Item Value Reference Range Interpretation Comments COLOR (test code = COLU) Yellow YELLOW A CLARITY (test code = CLA) Clear CLEAR GLUCOSE UR (test code = UA GLUCOSE) 2+ NEGATIVE A BILI UR (test code = BILE) Negative NEGATIVE KETONES UR (test code = NATHEN) 1+ NEGATIVE A SP GRAVITY (test code = SPGR) 1.025 1.005-1.030 PH UR (test code = PH) 6.0 4.5-8.0 PROTEIN UR (test code = PU) Negative NEGATIVE UROBIL UR (test code = UROQ) 0.2 EU/dL 0.2-1.0 NITRITE UR (test code = NITRITE) Negative NEGATIVE BLOOD UR (test code = UA BLOOD) 1+ NEGATIVE A LEUK ES UR (test code = LEUK) Negative NEGATIVE WBC UR (test code = UWBC) 0 /HPF 0-5 RBC UR (test code = URBC) 1 /HPF 0-2 EPITH UR (test code = UEPC) FEW /LPF FEW BACTERIA UR (test code = UBACT) NONE /HPF NONE CAST UR (test code = CAST) /LPF NONE CRYSTAL UR (test code = CRYU) / LPF NONE MUCUS UR (test code = MUC) / HPF NONE AMORPH UR (test code = TONI) / HPF NONE TRICH UR (test code = UTRICH) /HPF NONE YEAST UR (test code = UY) /HPF NONE SPERM UR (test code = USPERM) /HPF NONE URINE [id number] 13:35:00 Test Item Value Reference Range Interpretation Comments PREG UR (test code = PGU) NEGATIVE NEGATIVE CBC (INCLUDES AUTOMATED DIFFERENTIAL)2016-12-19 13:33:00 Test Item Value Reference Range Interpretation Comments WBC (test code = WBC) 9.1 10\\S\\3/uL 4.5-11.0 RBC (test code = RBC) 5.27 10\\S\\6/uL 4.30-5.70 HGB (test code = HBG) 14.3 g/dL 12.0-15.5 HCT (test code = HCT) 43.0 % 35.0-44.0 MCV (test code = MCV) 81.6 fL 81.0-99.0 MCH (test code = MCH) 27.1 pg 27.0-31.0 MCHC (test code = MCHC) 33.3 g/dL 32.0-36.0 RDW (test code = RDW) 13.0 % 11.5-14.5 PLT (test code = PLT) 253 10\\S\\3/uL 130-400 MPV (test code = MPV) 10.3 fL 9.4-12.4 NEUTROP # (test code = NE#) 6.3 10\\S\\3/uL 1.6-8.0 LYMPH # (test code = LY#) 2.1 10\\S\\3/uL 1.1-3.5 MONOCYTE # (test code = MO#) 0.4 10\\S\\3/uL 0.0-1.1 EOSINOPH # (test code = EO#) 0.2 10\\S\\3/uL 0.0-0.7 BASOPHIL # (test code = BA#) 0.1 10\\S\\3/uL 0.0-0.3 IG # (test code = IG#) 0.06 10\\S\\3/uL 0.00-0.06 NRBC # (test code = NRBC#) 0.00 10\\S\\3/uL 0.00-0.01 NEUTROPH % (test code = NE%) 69.0 % 35.0-73.0 LYMPH % (test code = LY%) 23.3 % 20.0-55.0 MONO % (test code = MO%) 4.1 % 2.5-10.0 EOSINOPH % (test code = EO%) 2.1 % 0.0-5.0 BASOPHIL % (test code = BA%) 0.8 % 0.0-2.0 IG % (test code = IG%) 0.7 % 0.0-0.8 NRBC% (test code = NRBC%) 0.0 % 0.0-0.2 MANDIFF (test code = MDIFF) NO NO RBC MORPH (test code = RBCMOR) NORMAL GLUCOMETER GLUCOSE- LAB USE [id number] 13:02:00 Test Item Value Reference Range Interpretation Comments GLUCOMETER (test code = 420 mg/dL 70-100 H Mete r ID: GMG) [id number] tor: [id number] JOE Machado YALA GLUCOMETER GLUCOSE- LAB USE [id number] 13:23:00 Test Item Value Reference Range Interpretation Comments GLUCOMETER (test code = 282 mg/dL 70-100 H Mete r ID: GMG) [id number] tor: [id number] AKASH MANRIQUE COMPREHENSIVE METABOLIC [id number] 12:13:00 Test Item Value Reference Range Interpretation Comments GLUCOSE (test code = 06D) 394 mg/dL 75-100 H SODIUM (test code = 01A) 133 mmol/L 136-145 L POTASSIUM (test code = 01B) 3.8 mmol/L 3.6-5.1 CHLORIDE (test code = 04A) 99 mmol/L 98-107 CO2 (test code = 02A) 23 mmol/L 22-32 ANION GAP (test code = ANG) 14.8 mmol/L BUN (test code = 05D) 5 mg/dL 7-18 L CREATININE (test code = 03E) 0.8 mg/dL 0.4-1.1 BUN/CREA (test code = BCR) 6 12-20 L CALCIUM (test code = 09D) 8.4 mg/dL 8.3-9.5 BILI TOTAL (test code = 11A) 0.5 mg/dL 0.2-1.0 PROTEIN (test code = 07D) 7.4 g/dL 6.4-8.2 ALBUMIN (test code = 08D) 3.6 g/dL 3.5-4.8 GLOBULIN (test code = GLB) 3.8 g/dL 1.5-3.8 ALB/GLOB (test code = AGRR) 0.9 1.0-2.6 L ALK PHOS (test code = 35A) 85 IU/L 42-121 AST (test code = 30A) 51 IU/L <=42 H ALT (test code = 31A) 59 IU/L <=78 AMYLASE AND [id number] 12:08:00 Test Item Value Reference Range Interpretation Comments AMYLASE (test code = 10A) 18 U/L 28-100 L LIPASE (test code = 60A) 96 IU/L 73-393 PRO TIME AND [id number] 12:04:00 Test Item Value Reference Range Interpretation Comments PT (test code = 12.2 s 9.8-13.6 TT) INR (test code = 1.1 INR) INRH (test code = SUGGESTED INRH) THERAPEUTIC RANGE FOR INR: 2.5 - 3.5 For Patients with Prosthetic Valves or Patients with recurrent Thromboembolic Events 2.0 - 3.0 For Most Other Applications PTT (test code = 29.3 s 20.2-38.0 PTT) PTTH (test code = To monitor the PTTH) effectiveness of heparin, we offer the Anti-Xa (Heparin Assay). It can be used for either unfractionated or LMW Heparin. Order Code is ANTI-XA SERUM [id number] 11:58:00 Test Item Value Reference Range Interpretation Comments PREG SRM (test code = PGS) NEGATIVE NEGATIVE CBC (INCLUDES AUTOMATED DIFFERENTIAL)2016-12-17 11:55:00 Test Item Value Reference Range Interpretation Comments WBC (test code = WBC) 7.0 10\\S\\3/uL 4.5-11.0 RBC (test code = RBC) 4.81 10\\S\\6/uL 4.30-5.70 HGB (test code = HBG) 13.0 g/dL 12.0-15.5 HCT (test code = HCT) 39.4 % 35.0-44.0 MCV (test code = MCV) 81.9 fL 81.0-99.0 MCH (test code = MCH) 27.0 pg 27.0-31.0 MCHC (test code = MCHC) 33.0 g/dL 32.0-36.0 RDW (test code = RDW) 13.0 % 11.5-14.5 PLT (test code = PLT) 214 10\\S\\3/uL 130-400 MPV (test code = MPV) 10.2 fL 9.4-12.4 NEUTROP # (test code = NE#) 4.4 10\\S\\3/uL 1.6-8.0 LYMPH # (test code = LY#) 2.0 10\\S\\3/uL 1.1-3.5 MONOCYTE # (test code = MO#) 0.4 10\\S\\3/uL 0.0-1.1 EOSINOPH # (test code = EO#) 0.2 10\\S\\3/uL 0.0-0.7 BASOPHIL # (test code = BA#) 0.1 10\\S\\3/uL 0.0-0.3 IG # (test code = IG#) 0.03 10\\S\\3/uL 0.00-0.06 NRBC # (test code = NRBC#) 0.00 10\\S\\3/uL 0.00-0.01 NEUTROPH % (test code = NE%) 62.5 % 35.0-73.0 LYMPH % (test code = LY%) 28.1 % 20.0-55.0 MONO % (test code = MO%) 5.2 % 2.5-10.0 EOSINOPH % (test code = EO%) 2.9 % 0.0-5.0 BASOPHIL % (test code = BA%) 0.9 % 0.0-2.0 IG % (test code = IG%) 0.4 % 0.0-0.8 NRBC% (test code = NRBC%) 0.0 % 0.0-0.2 MANDIFF (test code = MDIFF) NO NO RBC MORPH (test code = RBCMOR) NORMAL GLUCOMETER GLUCOSE- LAB USE [id number] 13:39:00 Test Item Value Reference Range Interpretation Comments GLUCOMETER (test code 152 mg/dL 70-100 H CLEANE D METERMeter ID: = GMG) [id number] tor: [id number] STONE PROTOCOL [id number] 12:15:24CT ABDOMEN AND PELVIS WITHOUT CONTRAST, RENAL STONE PROTOCOL:Location code: [id number] HISTORY: Right flank painCOMPARISON: 06/16/2016TECHNIQUE: Helical CT of the abdomen and pelvis was performed withoutcontrast. Thin section axial, sagittal and coronal images were obtained.Automatic exposure controlwas utilized. Total DLP: 1225 mGycm.FINDINGS: There is no renal or ureteral calculus. There is no h ydronephrosis orperinephric collection.The visualized lung bases are clear. [...] abnormality.2. Fatty infiltration of the liver.COMPREHENSIVE METABOLIC ROSA 2016-08-10 12:03:00 Test Item Value Reference Range Interpretation Comments GLUCOSE (test code = 06D) 307 mg/dL 75-100 H SODIUM (test code = 01A) 137 mmol/L 136-145 POTASSIUM (test code = 01B) 3.9 mmol/L 3.6-5.1 CHLORIDE (test code = 04A) 101 mmol/L 98-107 CO2 (test code = 02A) 24 mmol/L 22-32 ANION GAP (test code = ANG) 15.9 mmol/L BUN (test code = 05D) 9 mg/dL 7-18 CREATININE (test code = 03E) 0.8 mg/dL 0.4-1.1 BUN/CREA R (test code = BCR) 11 12-20 L CALCIUM (test code = 09D) 8.6 mg/dL 8.3-9.5 BILI TOTAL (test code = 11A) 0.3 mg/dL 0.2-1.0 PROTEIN (test code = 07D) 7.5 g/dL 6.4-8.2 ALBUMIN (test code = 08D) 3.6 g/dL 3.5-4.8 GLOBULIN (test code = GLB) 3.9 g/dL 1.5-3.8 H ALB/GLOB (test code = AGRR) 0.9 1.0-2.6 L ALK PHOS (test code = 35A) 85 IU/L 42-121 AST (test code = 30A) 20 IU/L <=42 ALT (test code = 31A) 31 IU/L <=78 AMYLASE AND [id number] 11:58:00 Test Item Value Reference Range Interpretation Comments AMYLASE (test code = 10A) 21 U/L 28-100 L LIPASE (test code = 60A) 97 IU/L 73-393 SERUM [id number] 11:55:00 Test Item Value Reference Range Interpretation Comments PREG SRM (test code = PGS) NEGATIVE NEGATIVE PRO TIME AND [id number] 11:54:00 Test Item Value Reference Range Interpretation Comments PT (test code = 10.7 s 9.8-13.6 TT) INR (test code = 1.0 INR) INRH (test code = SUGGESTED INRH) THERAPEUTIC RANGE FOR INR: 2.5 - 3.5 For Patients with Prosthetic Valves or Patients with recurrent Thromboembolic Events 2.0 - 3.0 For Most Other Applications PTT (test code = 28.6 s 20.2-38.0 PTT) PTTH (test code = To monitor the PTTH) effectiveness of heparin, we offer the Anti-Xa (Heparin Assay). It can be used for either unfractinated or LMW Heparin. Order Code is ANTI-XA [id number] 11:48:00 Test Item Value Reference Range Interpretation Comments COLOR (test code = COLU) YELLOW YELLOW CLARITY (test code = CLA) CLEAR CLEAR GLUCOSE UR (test code = UA GLUCOSE) 3+ NEGATIVE A BILI UR (test code = BILE) NEGATIVE NEGATIVE KETONES UR (test code = NATHEN) 1+ NEGATIVE A SP GRAVITY (test code = SPGR) 1.027 1.005-1.030 PH UR (test code = PH) 7.0 4.5-8.0 PROTEIN UR (test code = PU) NEGATIVE NEGATIVE UROBIL UR (test code = UROQ) 0.2 EU/dL 0.2-1.0 NITRITE UR (test code = NITRITE) NEGATIVE NEGATIVE BLOOD UR (test code = UA BLOOD) NEGATIVE NEGATIVE LEUK ES UR (test code = LEUK) NEGATIVE NEGATIVE CBC (INCLUDES AUTOMATED DIFFERENTIAL)2016-08-10 11:44:00 Test Item Value Reference Range Interpretation Comments WBC (test code = WBC) 10.9 10\\S\\3/uL 4.5-11.0 RBC (test code = RBC) 4.95 10\\S\\6/uL 4.30-5.70 HGB (test code = HBG) 13.4 g/dL 12.0-15.5 HCT (test code = HCT) 40.4 % 35.0-44.0 MCV (test code = MCV) 81.6 fL 81.0-99.0 MCH (test code = MCH) 27.1 pg 27.0-31.0 MCHC (test code = MCHC) 33.2 g/dL 32.0-36.0 RDW (test code = RDW) 13.0 % 11.5-14.5 PLT (test code = PLT) 254 10\\S\\3/uL 130-400 MPV (test code = MPV) 9.6 fL 9.4-12.4 NEUTROP # (test code = NE#) 7.4 10\\S\\3/uL 1.6-8.0 LYMPH # (test code = LY#) 2.5 10\\S\\3/uL 1.1-3.5 MONOCYTE # (test code = MO#) 0.6 10\\S\\3/uL 0.0-1.1 EOSINOPH # (test code = EO#) 0.2 10\\S\\3/uL 0.0-0.7 BASOPHIL # (test code = BA#) 0.1 10\\S\\3/uL 0.0-0.3 IG # (test code = IG#) 0.05 10\\S\\3/uL 0.00-0.06 NRBC # (test code = NRBC#) 0.00 10\\S\\3/uL 0.00-0.01 NEUTROPH % (test code = NE%) 68.5 % 35.0-73.0 LYMPH % (test code = LY%) 23.2 % 20.0-55.0 MONO % (test code = MO%) 5.1 % 2.5-10.0 EOSINOPH % (test code = EO%) 2.1 % 0.0-5.0 BASOPHIL % (test code = BA%) 0.6 % 0.0-2.0 IG % (test code = IG%) 0.5 % 0.0-0.8 NRBC% (test code = NRBC%) 0.0 % 0.0-0.2 MANDIFF (test code = MDIFF) NO NO RBC MORPH (test code = RBCMOR) NORMAL CT ABDOMEN AND PELVIS WITH [id number] 18:45:31LOCATION CODE: B2CT ABDOMEN AND PELVIS WITH [...] use of iterativereconstruction reconstruction technique. DLP 2374 mGy- cm.FINDINGS: The lung bases are clear.The liver, gallbladder, spleen, pancreas, and adrenal glands appear normal. Thekidneys are normal without hydronephrosis or hydroureter. No renal calculi. Onthe delayed images, renal collecting systems opacify normally.The stomach is significantly distended with large amount of gastric contents.It measures [id number] x 8 x 10 cm. No obstructing distal gastric lesionis seen however. There is no small or large bowel obstruction. The appendix isnormal, air-filled.No free intra-abdominal air or fluid.Visualized vascular structures enhance normally. Within the pelvis, urinary bladder is normal. Pelvic organs are normalappearing. Osseous structures demonstrate no focal abnormalities. IMPRESSION:1. Normal right lower quadrant appendix. No free air or free fluid.2. Incidental note of a significantly distended stomach. Appearance isnonspecific. No obstructing distal lesion. Correlate for symptoms ofgastroparesis, if so, this will be better evaluated on gastric emptying study,non-emergently.AMYLASE AND [id number] 18:01:00 Test Item Value Reference Range Interpretation Comments AMYLASE (test code = 10A) 26 U/L 28-100 L LIPASE (test code = 60A) 105 IU/L 73-393 COMPREHENSIVE METABOLIC [id number] 18:01:00 Test Item Value Reference Range Interpretation Comments GLUCOSE (test code = 06D) 227 mg/dL 75-100 H SODIUM (test code = 01A) 139 mmol/L 136-145 POTASSIUM (test code = 01B) 3.8 mmol/L 3.6-5.1 CHLORIDE (test code = 04A) 104 mmol/L 98-107 CO2 (test code = 02A) 25 mmol/L 22-32 ANION GAP (test code = ANG) 13.8 mmol/L BUN (test code = 05D) 10 mg/dL 7-18 CREATININE (test code = 03E) 0.8 mg/dL 0.4-1.1 BUN/CREA R (test code = BCR) 12 12-20 CALCIUM (test code = 09D) 8.7 mg/dL 8.3-9.5 BILI TOTAL (test code = 11A) 0.3 mg/dL 0.2-1.0 PROTEIN (test code = 07D) 7.1 g/dL 6.4-8.2 ALBUMIN (test code = 08D) 3.6 g/dL 3.5-4.8 GLOBULIN (test code = GLB) 3.5 g/dL 1.5-3.8 ALB/GLOB (test code = AGRR) 1.0 1.0-2.6 ALK PHOS (test code = 35A) 87 IU/L 42-121 AST (test code = 30A) 6 IU/L <=42 ALT (test code = 31A) 16 IU/L <=78 [id number] 17:59:00 Test Item Value Reference Range Interpretation Comments COLOR (test code = COLU) YELLOW YELLOW CLARITY (test code = CLA) CLEAR CLEAR GLUCOSE UR (test code = UA GLUCOSE) 3+ NEGATIVE A BILI UR (test code = BILE) NEGATIVE NEGATIVE KETONES UR (test code = NATHEN) TRACE NEGATIVE A SP GRAVITY (test code = SPGR) 1.028 1.005-1.030 PH UR (test code = PH) 5.5 4.5-8.0 PROTEIN UR (test code = PU) NEGATIVE NEGATIVE UROBIL UR (test code = UROQ) 1.0 EU/dL 0.2-1.0 NITRITE UR (test code = NITRITE) NEGATIVE NEGATIVE BLOOD UR (test code = UA BLOOD) NEGATIVE NEGATIVE LEUK ES UR (test code = LEUK) NEGATIVE NEGATIVE CBC (INCLUDES AUTOMATED DIFFERENTIAL)2016-06-16 17:53:00 Test Item Value Reference Range Interpretation Comments WBC (test code = WBC) 7.2 10\\S\\3/uL 4.5-11.0 RBC (test code = RBC) 4.57 10\\S\\6/uL 4.30-5.70 HGB (test code = HBG) 12.7 g/dL 12.0-15.5 HCT (test code = HCT) 38.4 % 35.0-44.0 MCV (test code = MCV) 84.0 fL 81.0-99.0 MCH (test code = MCH) 27.8 pg 27.0-31.0 MCHC (test code = MCHC) 33.1 g/dL 32.0-36.0 RDW (test code = RDW) 12.6 % 11.5-14.5 PLT (test code = PLT) 272 10\\S\\3/uL 130-400 MPV (test code = MPV) 9.9 fL 9.4-12.4 NEUTROP # (test code = NE#) 4.4 10\\S\\3/uL 1.6-8.0 LYMPH # (test code = LY#) 2.0 10\\S\\3/uL 1.1-3.5 MONOCYTE # (test code = MO#) 0.5 10\\S\\3/uL 0.0-1.1 EOSINOPH # (test code = EO#) 0.2 10\\S\\3/uL 0.0-0.7 BASOPHIL # (test code = BA#) 0.1 10\\S\\3/uL 0.0-0.3 IG # (test code = IG#) 0.02 10\\S\\3/uL 0.00-0.06 NRBC # (test code = NRBC#) 0.00 10\\S\\3/uL 0.00-0.01 NEUTROPH % (test code = NE%) 61.5 % 35.0-73.0 LYMPH % (test code = LY%) 27.6 % 20.0-55.0 MONO % (test code = MO%) 6.8 % 2.5-10.0 EOSINOPH % (test code = EO%) 3.1 % 0.0-5.0 BASOPHIL % (test code = BA%) 0.7 % 0.0-2.0 IG % (test code = IG%) 0.3 % 0.0-0.8 NRBC% (test code = NRBC%) 0.0 % 0.0-0.2 MANDIFF (test code = MDIFF) NO NO RBC MORPH (test code = RBCMOR) NORMAL SERUM [id number] 17:52:00 Test Item Value Reference Range Interpretation Comments PREG SRM (test code = PGS) NEGATIVE NEGATIVE
[2020-06-27 21:23] LABS: Urine Blood 3+ (Negative); Urine Glucose 2+ (Negative); Urine Protein 2+ (Negative); Urine pH 5.5 (5.0-7.0)
[2020-06-27] MEDS ORDERED: MORPHINE 4 MG/ML SYR ONE (23:05)
[2020-06-27] MEDS ORDERED: ONDANSETRON 4 MG/2 ML VIAL ONE (23:05)
[2020-06-27] MEDS ORDERED: NA CHLORIDE 0.9% 1,000 ML ONE (23:05)
[2020-06-27 23:10] LABS: Absolute Lymphocytes (CBC) 1.7 K/uL (0.7-4.9); Basophils % 0.4 % (0-1.3); Hematocrit 38.8 % (36.0-45.0); Lymphocytes % 14.4 % (15.3-44.8); MPV 8.1 fL (7.6-11.3); RBC Red Blood Cell Count 4.71 M/uL (3.86-4.86)
[2020-06-27 23:31] LABS: ALT/SGPT 26 U/L (12-78); AST/SGOT 16 U/L (15-37); Albumin 3.4 g/dL (3.4-5.0); Alkaline Phosphatase 114 U/L (45-117); BUN Blood Urea Nitrogen 8 mg/dL (7-18); Bicarbonate 25 mmol/L (21-32); Bilirubin Direct 0.3 mg/dL (0-0.2); Bilirubin Total 1.1 mg/dL (0.2-1.0); Glucose Level 268 mg/dL (74-106); Lipase 36 U/L (73-393); Potassium 3.1 mmol/L (3.5-5.1); Protein, Total 8.2 g/dL (6.4-8.2); Sodium Level 134 mmol/L (136-145)
[2020-06-28] MEDS ORDERED: MORPHINE 4 MG/ML SYR ONE (01:32)
--- NOTE | 2020-06-28 02:05 | ER ---
Nurse's Notes [facility] Name: Jessica Kearns Age: 29 yrs Sex: Female : 1990 Arrival Date: 06/27/2020 Time: 18:52 Bed 14 Private MD: Bonita Mayer Diagnosis: Urinary tract infection, site not specified;Lower abdominal pain, unspecified Presentation: 06/27 19:20 Chief complaint: Patient states: RLQ pain since yesterday morning. +Nausea, +diarrhea. ca1 Coronavirus screen: Client denies travel out of the [place] in the last 14 days. diarrhea, nausea, Client presents with at least one sign or symptom that may indicate coronavirus-19. Standard/surgical mask placed on the client. Provider contacted for isolation considerations. Ebola Screen: Patient negative for fever greater than or equal to 101.5 degrees Fahrenheit, and additional compatible Ebola Virus Disease symptoms Patient denies exposure to infectious person. Patient denies travel to an Ebola-affected area in the 21 days before illness onset. No symptoms or risks identified at this time. Initial Sepsis Screen: Does the patient meet any 2 criteria? No. Patient's initial sepsis screen is negative. Does the patient have a suspected source of infection? No. Patient's initial sepsis screen is negative. Risk Assessment: Do you want to hurt yourself or someone else? Patient reports no desire to harm self or others. Onset of symptoms was June 26, 2020. 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 Flu vaccine is not up to date. - Social history:: Smoking status: Patient/guardian denies using tobacco, the patient reports quitting approximately 3 years ago. Screenin:00 Abuse screen: Denies threats or abuse. Nutritional screening: No deficits noted. jb4 Tuberculosis screening: No symptoms or risk factors identified. Fall Risk None identified. Assessment: 22:00 General: Appears in no apparent distress. uncomfortable, Behavior is calm, cooperative, jb4 appropriate for age. Pain: Complains of pain in left lower quadrant Pain does not radiate. Pain currently is 10 out of 10 on a pain scale. Neuro: Level of Consciousness is awake, alert, obeys commands, Oriented to person, place, time, situation. Cardiovascular: Patient's skin is warm and dry. Respiratory: Airway is patent Respiratory effort is even, unlabored, Respiratory pattern is regular, symmetrical. GI: Abdomen is round non-distended. : No signs and/or symptoms were reported regarding the genitourinary system. EENT: No signs and/or symptoms were reported regarding the EENT system. Derm: Skin is intact, Skin is pink, warm \T\ dry. Musculoskeletal: Circulation, motion, and sensation intact. Range of motion: intact in all extremities. 23:00 Reassessment: Patient appears in no apparent distress at this time. Patient and/or jb4 family updated on plan of care and expected duration. Pain level reassessed. Patient is alert, oriented x 3, equal unlabored respirations, skin warm/dry/pink. Patient states feeling better. 06/28 00:00 Reassessment: PT is resting comfortably in bed with no s/s of pain or distress noted. jb4 Respirations are even and unlabored. 01:00 Reassessment: Patient appears in no apparent distress at this time. No changes from jb4 previously documented assessment. Patient and/or family updated on plan of care and expected duration. Pain level reassessed. 02:41 Reassessment: Patient appears in no apparent distress at this time. Patient and/or jb4 family updated on plan of care and expected duration. Pain level reassessed. Patient is alert, oriented x 3, equal unlabored respirations, skin warm/dry/pink. Vital Signs: 06/27 19:20 BP 116 / 73; Pulse 114; Resp 18 S; Temp 97.5(TE); Pulse Ox 99% on R/A; Weight 83.73 kg ca1 (R); Height 4 ft. 11 in. (149.86 cm) (R); Pain 8/10; 22:45 BP 117 / 76; Pulse 104; Resp 16; Pulse Ox 98% on R/A; jb4 06/28 00:00 BP 103 / 64; Pulse 100; Resp 18; Pulse Ox 98% on R/A; jb4 01:00 BP 111 / 50; Pulse 99; Resp 16; Pulse Ox 99% on R/A; jb4 06/27 19:20 Body Mass Index 37.28 (83.73 kg, 149.86 cm) ca1 ED Course: 06/27 18:52 Patient arrived in ED. am2 18:53 Jay Mejia MD is Private Physician. am2 18:53 Bonita Mayer FNP-C is Private Physician. am2 19:22 Triage completed. ca1 19:23 Arm band placed on right wrist. ca1 21:51 Rick Kan PA is PHCP. cp 21:51 Washington Burch MD is Attending Physician. cp 22:00 Patient has correct armband on for positive identification. Placed in gown. Bed in low jb4 position. Call light in reach. Side rails up X 1. Pulse ox on. NIBP on. 22:19 Riaz Lerma, RN is Primary Nurse. jb4 23:04 Lipase Sent. jb4 23:04 CBC with Diff Sent. jb4 23:05 Hepatic Function Sent. jb4 23:05 Basic Metabolic Panel Sent. jb4 06/28 01:28 CT Abd/Pelvis - PO and IV Contrast In Process Unspecified. EDMS 02:43 No provider procedures requiring assistance completed. IV discontinued, intact, jb4 bleeding controlled, No redness/swelling at site. Pressure dressing applied. Administered Medications: 06/27 23:00 Drug: Zofran (Ondansetron) 4 mg Route: IVP; Site: right antecubital; jb4 23:30 Follow up: Response: No adverse reaction; Marked relief of symptoms jb4 23:03 Drug: NS 0.9% 1000 ml Route: IV; Rate: 1 bolus; Site: right antecubital; jb4 06/28 00:00 Follow up: Response: No adverse reaction; IV Status: Completed infusion; IV Intake: jb4 1000ml 06/27 23:04 Drug: morphine 4 mg Route: IVP; Site: right antecubital; jb4 23:30 Follow up: Response: No adverse reaction; Marked relief of symptoms; Pain is decreased; jb4 RASS: Alert and Calm (0) 06/28 01:00 Drug: morphine 4 mg Route: IVP; Site: right antecubital; jb4 01:30 Follow up: Response: No adverse reaction; Marked relief of symptoms; Pain is decreased; jb4 RASS: Alert and Calm (0) 02:25 Drug: TORadol - (ketorolac) 15 mg Route: IVP; Site: right antecubital; jb4 02:45 Follow up: Response: No adverse reaction; Pain is decreased jb4 02:26 Drug: Rocephin (cefTRIAXone) 1 grams Route: IV; Rate: calculated rate; Site: right jb4 antecubital; 02:30 Follow up: Response: No adverse reaction; IV Status: Completed infusion; IV Intake: [id number] Intake: 00:00 IV: 1000ml; Total: 1000ml. jb4 02:30 IV: 10ml; Total: 1010ml. jb4 Outcome: 02:04 Discharge ordered by MD. cp 02:43 Discharged to home ambulatory, via wheelchair, with family. jb4 02:43 Condition: stable 02:43 Discharge instructions given to patient, Instructed on discharge instructions, follow up and referral plans. medication usage, Demonstrated understanding of instructions, follow-up care, medications, Prescriptions given X 4. 02:46 Patient left the ED. jb4 Signatures: Dispatcher [employer] EDMS Rick Kan PA PA cp Bryson, James, RN RN jb4 Hazel Aaron Cheryl, RN RN ca1 Corrections: (The following items were deleted from the chart) 06/27 19:23 19:20 Acuity: BAYLEE 3 ca1 ca1
--- NOTE | 2020-06-28 02:05 | EDPHYS ---
Physician Documentation [facility] Name: Jessica Kearns Age: 29 yrs Sex: Female : 1990 Arrival Date: 06/27/2020 Time: 18:52 Bed 14 Private MD: Bonita Mayer ED Physician Washington Burch HPI: 06/27 21:35 This 29 yrs old Female presents to ER via Ambulatory with complaints of cp Abdominal Pain - rlq. 21:35 The patient presents with abdominal pain right lower quadrant. cp 21:35 Onset: The symptoms/episode began/occurred yesterday. cp 21:35 The symptoms radiate to Associated signs and symptoms: Pertinent positives: diarrhea, cp nausea, vaginal discharge, vaginal bleeding, Pertinent negatives: blood in stools, constipation, fever, headache, active vomiting. The symptoms are described as constant. Modifying factors: the symptoms are aggravated by pressure. Severity of pain: in the emergency department the pain is unchanged despite home interventions. [employer]PER[employer]ENT: 19:23 LMP 06/22/2020 ca1 Historical: - Allergies: 19:23 cranberry; ca1 19:23 PENICILLINS; ca1 19:23 Pomegranate; ca1 - Home Meds: 19:23 Metformin Oral [Active]; ca1 - PMHx: 19:23 Diabetes - IDDM; Diabetes - NIDDM; ca1 - PSHx: 19:23 None; ca1 - Immunization history:: Client reports having NOT received the Covid vaccine. Flu vaccine is not up to date. - Social history:: Smoking status: Patient/guardian denies using tobacco, the patient reports quitting approximately 3 years ago. ROS: 21:40 Constitutional: Negative for body aches, chills, poor PO intake. cp 21:40 Eyes: Negative for injury, pain, redness, and discharge. cp 21:40 Cardiovascular: Negative for chest pain. cp 21:40 Respiratory: Negative for cough, shortness of breath, wheezing. cp 21:40 Abdomen/GI: Positive for abdominal pain, nausea, diarrhea, Negative for vomiting, constipation, black/tarry stool, rectal bleeding. 21:40 Back: Positive for pain at rest, pain with movement. 21:40 Neuro: Negative for altered mental status, headache, weakness. 21:40 All other systems are negative. Exam: 19:45 Constitutional: The patient appears in no acute distress, alert, awake, cp non-diaphoretic, non-toxic, well developed, well nourished. 19:45 Head/Face: Normocephalic, atraumatic. cp 19:45 Eyes: Periorbital structures: appear normal, Conjunctiva: normal, no exudate, no injection, Sclera: no appreciated abnormality, Lids and lashes: appear normal, bilaterally. 19:45 ENT: External ear(s): are unremarkable, Nose: is normal, Mouth: Lips: moist, Oral mucosa: moist, Posterior pharynx: Airway: no evidence of obstruction, patent. 19:45 Chest/axilla: Inspection: normal, Palpation: is normal, no crepitus, no tenderness. 19:45 Cardiovascular: Rate: tachycardic, Rhythm: regular. 19:45 Respiratory: the patient does not display signs of respiratory distress, Respirations: normal, no use of accessory muscles, no retractions, labored breathing, is not present, Breath sounds: are clear throughout, no decreased breath sounds. 19:45 Abdomen/GI: Inspection: abdomen appears normal, Bowel sounds: active, all quadrants, Palpation: soft, in all quadrants, moderate abdominal tenderness, in the right lower quadrant and left lower quadrant, rebound tenderness, is not appreciated, involuntary guarding, is elicited in the right lower quadrant and left lower quadrant. 19:45 Back: CVA tenderness, is absent. 19:45 Skin: no rash present. 06/28 01:59 : Pelvic Exam: The exam is refused by the patient/guardian. The risks and cp consequences are understood by the patient, Sexual behavior: the patient is sexually active, and reports a single partner. Vital Signs: 06/27 19:20 BP 116 / 73; Pulse 114; Resp 18 S; Temp 97.5(TE); Pulse Ox 99% on R/A; Weight 83.73 kg ca1 (R); Height 4 ft. 11 in. (149.86 cm) (R); Pain 8/10; 22:45 BP 117 / 76; Pulse 104; Resp 16; Pulse Ox 98% on R/A; jb4 06/28 00:00 BP 103 / 64; Pulse 100; Resp 18; Pulse Ox 98% on R/A; jb4 01:00 BP 111 / 50; Pulse 99; Resp 16; Pulse Ox 99% on R/A; jb4 06/27 19:20 Body Mass Index 37.28 (83.73 kg, 149.86 cm) ca1 MDM: 06/27 22:02 Patient medically screened. 06/28 02:02 Data reviewed: vital signs, nurses notes, lab test result(s), radiologic studies, CT cp scan. Counseling: I had a detailed discussion with the patient and/or guardian regarding: the historical points, exam findings, and any diagnostic results supporting the discharge/admit diagnosis, lab results, radiology results, the need for outpatient follow up, a family practitioner, to return to the emergency department if symptoms worsen or persist or if there are any questions or concerns that arise at home. ED course: Inquiry of website of [place] prescription monitoring program negative for results for prescriptions for controlled meds. 06/27 21:23 Order name: Urine Dipstick-Ancillary; Complete Time: 22:11 EDWY 06/27 23:37 Interpretation: Normal except: UGLUC 2+; UKET 4+; UBLD 3+; UPROT 2+; UESTR Trace. 06/27 21:28 Order name: Urine --Ancillary (enter results); Complete Time: 22:11 mw2 06/27 22:14 Order name: Basic Metabolic Panel; Complete Time: 23:37 06/27 23:37 Interpretation: Normal except: NA 134; K 3.1; GLUC 268; CRE 0.52. 06/27 22:14 Order name: CBC with Diff; Complete Time: 23:25 06/27 23:25 Interpretation: Normal except: WBC 12.10; MCV 82.4; CARMEN% 80.3; LYM% 14.4; NEUT A 9.7. 06/27 22:14 Order name: Hepatic Function; Complete Time: 23:37 cp 06/27 23:38 Interpretation: Normal except: BILIT 1.1; BILID 0.3; GLOB 4.8; A/G 0.7. 06/27 22:14 Order name: Lipase; Complete Time: 23:37 cp 06/28 00:57 Interpretation: LIP 36; Reviewed. 06/27 22:15 Order name: CT Abd/Pelvis - PO and IV Contrast cp 06/28 00:58 Order name: Urine Microscopic Only cp 06/28 00:58 Order name: Urine Microscopic Only EDWY 06/27 22:14 Order name: IV Saline Lock; Complete Time: 23:03 cp 06/27 22:14 Order name: Labs collected and sent; Complete Time: 23:04 cp Administered Medications: 06/27 23:00 Drug: Zofran (Ondansetron) 4 mg Route: IVP; Site: right antecubital; 4 23:30 Follow up: Response: No adverse reaction; Marked relief of symptoms jb4 23:03 Drug: NS 0.9% 1000 ml Route: IV; Rate: 1 bolus; Site: right antecubital; jb4 06/28 00:00 Follow up: Response: No adverse reaction; IV Status: Completed infusion; IV Intake: jb4 1000ml 06/27 23:04 Drug: morphine 4 mg Route: IVP; Site: right antecubital; jb4 23:30 Follow up: Response: No adverse reaction; Marked relief of symptoms; Pain is decreased; 4 RASS: Alert and Calm (0) 06/28 01:00 Drug: morphine 4 mg Route: IVP; Site: right antecubital; jb4 01:30 Follow up: Response: No adverse reaction; Marked relief of symptoms; Pain is decreased; 4 RASS: Alert and Calm (0) 02:25 Drug: TORadol - (ketorolac) 15 mg Route: IVP; Site: right antecubital; 4 02:45 Follow up: Response: No adverse reaction; Pain is decreased jb4 02:26 Drug: Rocephin (cefTRIAXone) 1 grams Route: IV; Rate: calculated rate; Site: right [facility] antecubital; 02:30 Follow up: Response: No adverse reaction; IV Status: Completed infusion; IV Intake: [id number] Disposition: 03:03 Co-signature as Attending Physician, Washington Burch MD. rn Disposition: 06/28/20 02:04 Discharged to Home. Impression: Urinary tract infection, site not specified, Lower abdominal pain, unspecified. - Condition is Stable. - Discharge Instructions: Abdominal Pain, Adult, Urinary Tract Infection, Adult. - Prescriptions for Bentyl 20 mg Oral Tablet - take 1 tablet by ORAL route every 6 hours As needed; 20 tablet. Zofran 4 mg Oral Tablet - take 1 tablet by ORAL route every 12 hours As needed; 20 tablet. Bactrim DS 800- 160 mg Oral Tablet - take 1 tablet by ORAL route every 12 hours for 7 days; 14 tablet. Ibuprofen 800 mg Oral Tablet - take 1 tablet by ORAL route every 8 hours As needed take with food; 30 tablet. - Medication Reconciliation Form, Thank You Letter, Antibiotic Education, Prescription Opioid Use form. - Follow up: Private Physician; When: 2 - 3 days; Reason: Recheck today's complaints. - Problem is new. - Symptoms have improved. Signatures: Dispatcher [employer] EDMS Washington Burch MD MD rn Rick Kan PA PA cp Bryson, James RN RN jb4 Sofie Dinero RN RN ca1 Corrections: (The following items were deleted from the chart) 06/27 23:37 22:11 Normal except. cp cp 06/28 02:46 02:04 06/28/2020 02:04 Discharged to Home. Impression: Urinary tract infection, site jb4 not specified; Lower abdominal pain, unspecified. Condition is Stable. Forms are Medication Reconciliation Form, Thank You Letter, Antibiotic Education, Prescription Opioid Use. Follow up: Private Physician; When: 2 - 3 days; Reason: Recheck today's complaints. Problem is new. Symptoms have improved. cp
[2020-06-28] MEDS ORDERED: KETOROLAC 30 MG/ML INJ ONE (02:38)
[2020-06-28] MEDS ORDERED: CEFTRIAXONE 1000 MG/VIAL ONE (02:39)
[2020-06-28 02:53] VITALS: TEMP 97.5
[2020-06-28 02:56] VITALS: BP 111/50; O2SAT 99
[2020-06-28 05:17] LABS: Urine Bacteria <20 /HPF (<20); Urine RBC <5 /HPF (NONE SEEN)
--- NOTE | 2020-06-28 14:40 | RAD REPORT ---
EXAM DESCRIPTION: CT - Abdomen Pelvis W Contrast - 06/28/2020 6:39 am CLINICAL HISTORY: 29 years, Female, RLQ PAIN COMPARISON: None. TECHNIQUE: Contrast-enhanced images of the abdomen and pelvis were performed utilizing 2 mm slice th ickness at 2 mm interval reconstruction from the lung bases to the ischial tuberosities after the adm inistration of IV contrast. No dosing amount was provided for interpretation. In addition multiplanar reformats in the coronal and sagittal plane were obtained and reviewed. An individualized dose optimization technique, Automated Exposure Control, was utilized for the perfo rmed procedure. FINDINGS: The lung bases demonstrate minimal dependent atelectatic changes. The liver the most rate marked decreased attenuation corresponding to fatty infiltration. Otherwise t he liver, gallbladder, pancreas, spleen and adrenal glands demonstrate to be unremarkable, no focal l esions are noted. The kidneys demonstrate normal uptake of contrast media with no evidence for hydronephrosis. There is a questionable tiny cyst within the midpole right kidney measuring 5 mm on image 38/99. The opacified stomach, small bowel and large bowel demonstrate to be within normal limits. There is no evidence for bowel dilatation/or free air. The appendix is normal. The urinary bladder demonstrate to be unremarkable. The uterus demonstrate to be within normal limi ts. Normal bilateral adnexal structures identified with minimal trace of physiologic free fluid poste rior cul-de-sac. The aorta demonstrate to be normal. There is no retroperitoneal lymphadenopathy. There is no evidence for ascites and/or significant abnormal fluid collections. The rest of the soft tissue and bony structures are within normal limits. IMPRESSION: Fatty infiltration of the liver. 5 mm cyst within the midpole right kidney. No evidence for acute intra-abdominal process Electronically signed by: Nima Saunders MD 06/28/2020 1:44 AM CDT Due to temporary technical issues with the PACS/Fluency reporting system, reports are being signed by the in house radiologists without review as a courtesy to insure prompt reporting. The interpreting radiologist is fully responsible for the content of the report.
== END 2020-06-28 02:46 | disposition home or self-care (01) ==
LOC: ER 18:38
DX: N39.0 Urinary tract infection, site not specified (principal); Z87.891 Personal history of nicotine dependence; E11.9 Type 2 diabetes mellitus without complications; Z79.84 Long term (current) use of oral hypoglycemic drugs
CPT/HCPCS: 85025; 80048; 36415; 81025; 80076; 81003; 81015; 83690; 74177; Q9967; J7030; J2405; 96361; 96374; 96375; 99284

== ENCOUNTER → 2023-05-22 | Emergency (ER) | payer OTHER ==
[~2023-05-22] MED LIST: Levofloxacin500mg IV 500 MG/100 ML BAG IV ONE; NA CHLORIDE 0.9% 1,000 ML ONE
--- OUTSIDE RECORDS SUMMARY | 2023-05-22 16:00 | XMS REPORT | Continuity of Care Document ---
Author Name Unknown Address [address] [facility] [address] [place] [address] [facility] thconnect Address [address] [facility]. 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 Name Role Phone Pcp, Patient Does Not Have A Primary Care Physic urbano Juhi Williamson Attending Clinician Unavailable Sue Celeste MD Attending Clinician + [phone] SUE CELESTE Attending Clinician Unatamika العلي Doctor Unassigned, [facility] [employer] Attending Clinician U dutch Cr NP, Jodie Attending Clinician Unarayray Velasquez RN, Sabine Perkins Attending Clinician Unav JODIE Greenwood Attending Clinician UnavailLuzmaria Cho MD Attending Clinician [phone] LUZMARIA DOYLE Attending Clinician Unavailable ANGELIA Attending Clinician Unavailable Jax Rodrigez DO Attending Clinician [phone] ROSELYN DAVE Attending Clinician Unavailable STEPHANIE MCCLELLAN Attending Clinician Unavailable Ying Moreno MD Attending Clinician [phone] GUERRERO [facility] Attending Clinician Unavailable Tenzin AVILEZ, Roselyn Perkins Attending Clinician RYLEE LOMBARDO Attending Clinician Unavailable JUHI CAMPBELL Attending Clinician Unavailgrace YIN, DR CARRERO Attending Clinician Unavailable THUAN ESCOBAR Attending Clinician Unavailable DR YUKI CHANDLER Attending Clinician Unavailable DESAI_RAKES Admitting Clinician Unavailable RYLEE LOMBARDO Admitting Clinician Unavailable JUHI CAMPBELL Admitting Clinician Unavailgrace YIN, DR CARRERO Admitting Clinician Unavailable THUAN ESCOBAR Admitting Clinician Unavailable DR YUKI CHANDLER Admitting Clinician Unavailable Payers Payer Name Policy Type Policy Number Effective Date Expirati on Date Source [facility] (MEDICAID HMO) [id number] 2019 00:00:00 Problems Condition Name Condition Details Condition Category Status Onset Date Resolution Date Last Treatment Date Treating Clinician Comments Source Acute vaginitis Acute vaginitis Disease Active 9-12 00:00: 00 [facility] Missed menses Missed menses Disease Active 4-03 00:00: 00 [facility] Hyperglyce blanquita due to type 2 diabetes mellitus Hyperglyce blanquita due to type 2 diabetes mellitus Disease Active 2021-03 1-18 00:00: 00 [facility] Perineal lump Perineal lump Disease Active 8- 00:00: 00 [facility] Vaginal yeast infection Vaginal yeast infection Disease Active 8- 00:00: 00 [facility] Screen for STD (sexually transmitte d disease) Screen for STD (sexually transmitte d disease) Disease Active 8- 00:00: 00 [facility] Recurrent candidiasi s of vagina Recurrent candidiasi s of vagina Disease Active 8-26 00:00: 00 [facility] BMI 35.0-35.9, adult BMI 35.0-35.9, adult Disease Active 5- 00:00: 00 [facility] examinatio n or test, negative result examinatio n or test, negative result Disease Active 5-11 00:00: 00 [facility] Normal grief reaction Normal Grief Reaction Problem Active 3-25 00:00: 00 [facility] Vaginal discharge Vaginal discharge Disease Active 3-15 00:00: 00 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 Vaginal itching Vaginal itching Disease Active 3-15 00:00: 00 [facility] Vaginal odor Vaginal odor Disease Active -15 00:00: 00 [facility] Attention deficit hyperactiv ity disorder Attention Deficit Hyperactiv ity Disorder Problem Active 5-03 00:00: 00 [facility] Toothache Toothache Problem Active 2019-03 1-17 00:00: 00 [facility] Relationsh ip problems Relationsh ip Problems Problem Active 2019-03 1-17 00:00: 00 [facility] Fungal infection of the groin Fungal infection of the groin Disease Active - 00:00: 00 [facility] Yeast infection Yeast infection Disease Active 9-28 00:00: 00 [facility] Chronic post-traum atic stress disorder Chronic Post-traum atic Stress Disorder Problem Active 8-13 00:00: 00 [facility] Bipolar disorder Bipolar Disorder Problem Active 8-12 00:00: 00 [facility] History of anxiety History of anxiety Disease Active 05 00:00: 00 [facility] History of bipolar disorder History of bipolar disorder Disease Active 4-05 00:00: 00 [facility] Family history of congenital hydrocepha fanny Family history of congenital hydrocepha fanny Disease Active 2019-0 4-05 00:00: 00 [facility] Morbid (severe) obesity due to excess calories Morbid (severe) obesity due to excess calories Problem Active [facility] Body mass index (BMI) 40.0-44.9, adult Body mass index (BMI) 40.0-44.9, adult Problem Active [facility] Uncontroll ed type 2 diabetes mellitus with hyperglyce blanquita Uncontroll ed type 2 diabetes mellitus with hyperglyce blanquita Problem Active [facility] Shortness of breath Shortness of breath Problem Active [facility] Allergies, Adverse Reactions, Alerts Allergy Name Allergy Type Status Severity Reaction(s) Onset Date Inactive Date Treating Clinician Comments Source PENICILL AMINE DRUG INGREDI Active Hives - 00:00: 00 [facility] Penicill amine Drug Allergy Active Hives - 00:00: 00 [facility] CRANBERR Y DRUG INGREDI Active Unknown-Cmnt 4-03 00:00: 00 [facility] POMEGRAN ATE DRUG INGREDI Active Anaphylaxis 4-03 00:00: 00 [facility] Cranberr y Drug Allergy Active Unknown - See comments 4- 00:00: 00 [facility] Pomegran ate Drug Allergy Active Anaphylaxis 4-03 00:00: 00 [facility] Tree Pollen-R ed [place] Propensi ty to adverse reaction s Active Other - See comments 2- 00:00: 00 Runny Nose, Sneezing [facility] TREE POLLEN-R ED [place] DRUG INGREDI Active Other-Cmnt 0 2-28 00:00: 00 [facility] Penicill ins Propensi ty to adverse reaction s Active Hives 4-04 00:00: 00 [facility] CRANBERR Y FRUIT EXTRACT DRUG INGREDI Active Diarrhea 0 4-04 00:00: 00 [facility] PENICILL INS Drug Class Active Hives 0 4-04 00:00: 00 [facility] POMEGRAN ATE FRUIT EXTRACT DRUG INGREDI Active Diarrhea 2019-0 4-04 00:00: 00 [facility] Cranberr y Fruit Extract Propensi ty to adverse reaction s Active Nausea and/or Vomiting 2019-0 4-04 00:00: 00 [facility] Pomegran ate Fruit Extract Propensi ty to adverse reaction s Active Nausea and/or Vomiting 2019-0 4-04 00:00: 00 [facility] Pomegran ate Adverse Reaction Active anaphylaxis [facility] Penicill amine Adverse Reaction Active hives [facility] Cranberr y Adverse Reaction Active Info Not Available [facility] Social History Social Habit Start Date Stop Date Quantity Comments Source [facility] History of tobacco use Cigarette Smoker [facility] Alcohol intake 2023-05-06 00:00:00 2023-05-06 00:00:00 Current drinker of alcohol (finding) [facility] Exposure to SARS-CoV-2 (event) 2022-01-09 00:00:00 2022-01-19 10:03:00 Not sure [facility] Tobacco use and exposure 2021-10-27 00:00:00 2021-10-27 00:00:00 Smokeless tobacco non-user [facility] History of Social function 2021-05-01 00:00:00 2021-05-01 00:00:00 [facility] History SDOH Alcohol Frequency 2019-11-30 00:00:00 2019-11-30 00:00:00 99 [facility] History SDOH Alcohol Std Drinks 2019-11-30 00:00:00 2019-11-30 00:00:00 99 [facility] History SDOH Alcohol Binge 2019-11-30 00:00:00 2019-11-30 00:00:00 99 [facility] Alcohol Comment 2019-11-30 00:00:00 2019-11-30 00:00:00 special occasions [facility] Education - What is the highest level of school you have completed or the highest degree you have received? 2018-12-02 00:00:00 2018-12-02 00:00:00 12th grade [facility] Sex Assigned At 1990 00:00:00 1990 00:00:00 [facility] Smoking Status Start Date Stop Date Source Ex-smoker 2021-10-27 00:00:00 2021-10-27 00:00:00 [facility] Medications Ordered Medication Name Filled Medication Name Start Date Stop Date Current Medication? Ordering Clinician Indication Dosage Frequency Signature (SIG) Comments Components Source metroNIDAZO LE (FLAGYL) 500 mg tablet 05-08 00:00: 00 Yes [id number] 500mg Take 1 tablet by mouth every 12 (twelve) hours. [facility] fluconazole (DIFLUCAN) 150 mg tablet 05-05 00:00: 00 Yes [id number] 150mg Take 1 tablet by mouth every other day. [facility] fluconazole (DIFLUCAN) 150 mg tablet 05-05 00:00: 00 Yes [id number] 150mg Take 1 tablet by mouth every other day. [facility] fluconazole (DIFLUCAN) 150 mg tablet 05-05 00:00: 00 Yes [id number] 150mg Take 1 tablet by mouth every other day. [facility] metroNIDAZO LE 500 mg tablet 11-14 00:00: 00 11-22 04:59 :00 No [id number] 500mg Take 1 tablet by mouth every 12 (twelve) hours for [address] [facility] ARIPiprazol e 10 mg tablet 11-12 10:18: 53 Yes 1 tablet Orally Once a day [facility] thiamine 100 mg tablet 11-12 10:18: 53 Yes 1 tablet Orally Once a day [facility] ARIPiprazol e 10 mg tablet 11-12 10:18: 53 Yes 1 tablet Orally Once a day [facility] thiamine 100 mg tablet 11-12 10:18: 53 Yes 1 tablet Orally Once a day [facility] ARIPiprazol e 10 mg tablet 11-12 10:18: 53 Yes 1 tablet Orally Once a day [facility] thiamine 100 mg tablet 2022-0 -11 10:18: 53 Yes 1 tablet Orally Once a day [facility] ARIPiprazol e 10 mg tablet 2022-0 -11 10:18: 53 Yes 1 tablet Orally Once a day [facility] mg tablet 2022-0 -11 10:18: 53 Yes 1 tablet Orally Once a day [facility] ARIPiprazol e 10 mg tablet 2022-0 11 10:18: 53 Yes 1 tablet Orally Once a day [facility] thiamine 100 mg tablet 2022-0 -11 10:18: 53 Yes 1 tablet Orally Once a day [facility] ARIPiprazol e 10 mg tablet 2022-0 11 10:18: 53 Yes 1 tablet Orally Once a day [facility] thiamine 100 mg tablet 2022-0 11 10:18: 53 Yes 1 tablet Orally Once a day [facility] ARIPiprazol e 10 mg tablet 2022-0 11 10:18: 53 Yes 1 tablet Orally Once a day [facility] thiamine 100 mg tablet 2022-0 11 10:18: 53 Yes 1 tablet Orally Once a day [facility] ARIPiprazol e 10 mg tablet 2022-0 11 10:18: 53 Yes 1 tablet Orally Once a day [facility] thiamine 100 mg tablet 2022-0 11 10:18: 53 Yes 1 tablet Orally Once a day [facility] ARIPiprazol e 10 mg tablet 2022-0 11 10:18: 53 Yes 1 tablet Orally Once a day [facility] thiamine 100 mg tablet 2022-0 -11 10:18: 53 Yes 1 tablet Orally Once a day [facility] terconazole 80 mg vaginal suppository 2022-0 11 00:00: 00 Yes [id number] 80mg Insert 1 Suppositor y into vagina at bedtime. [facility] terconazole 80 mg vaginal suppository 2022-0 11 00:00: 00 Yes [id number] 80mg Insert 1 Suppositor y into vagina at bedtime. [facility] terconazole 80 mg vaginal suppository 2022-0 11 00:00: 00 Yes [id number] 80mg Insert 1 Suppositor y into vagina at bedtime. [facility] terconazole 80 mg vaginal suppository 2022-0 11-12 00:00: 00 Yes [id number] 80mg Insert 1 Suppositor y into vagina at bedtime. [facility] terconazole 80 mg vaginal suppository 0 11-12 00:00: 00 Yes [id number] 80mg Insert 1 Suppositor y into vagina at bedtime. [facility] terconazole 80 mg vaginal suppository 0 11-12 00:00: 00 Yes [id number] 80mg Insert 1 Suppositor y into vagina at bedtime. [facility] terconazole 80 mg vaginal suppository 2022-0 11-12 00:00: 00 Yes [id number] 80mg Insert 1 Suppositor y into vagina at bedtime. [facility] terconazole 80 mg vaginal suppository 2022-0 11-12 00:00: 00 Yes [id number] 80mg Insert 1 Suppositor y into vagina at bedtime. [facility] terconazole 80 mg vaginal suppository 0 11-12 00:00: 00 Yes [id number] 80mg Insert 1 Suppositor y into vagina at bedtime. [facility] metFORMIN 1,000 mg tablet 0 08-14 13:26: 16 Yes 1 tablet with a meal Orally Twice daily for [address] [facility] metFORMIN 1,000 mg tablet 2022-0 08-14 13:26: 16 Yes 1 tablet with a meal Orally Twice daily for [address] [facility] metFORMIN 1,000 mg tablet 0 08-14 13:26: 16 Yes 1 tablet with a meal Orally Twice daily for [address] [facility] metFORMIN 1,000 mg tablet 0 08-14 13:26: 16 Yes 1 tablet with a meal Orally Twice daily for [address] [facility] metFORMIN 1,000 mg tablet 0 6-13 13:26: 16 Yes 1 tablet with a meal Orally Twice daily for [address] [facility] metFORMIN 1,000 mg tablet 2022-0 08-14 13:26: 16 Yes 1 tablet with a meal Orally Twice daily for [address] [facility] metFORMIN 1,000 mg tablet 2022-0 08-14 13:26: 16 Yes 1 tablet with a meal Orally Twice daily for [address] [facility] metFORMIN 1,000 mg tablet 2022-0 08-14 13:26: 16 Yes 1 tablet with a meal Orally Twice daily for [address] [facility] metFORMIN 1,000 mg tablet 2022-0 08-14 13:26: 16 Yes 1 tablet with a meal Orally Twice daily for [address] [facility] metFORMIN 1,000 mg tablet 2022-0 08-14 13:26: 16 Yes 1 tablet with a meal Orally Twice daily for [address] [facility] metFORMIN 1,000 mg tablet 2022-0 08-14 13:26: 16 Yes 1 tablet with a meal Orally Twice daily for [address] [facility] ARIPiprazol e 10 mg tablet 2022-0 08-14 13:14: 56 Yes 1 tablet Orally Once a day [facility] thiamine 100 mg tablet 0 08-14 13:14: 56 Yes 1 tablet Orally Once a day [facility] ARIPiprazol e 10 mg tablet 2022-0 08-14 13:14: 56 Yes 1 tablet Orally Once a day [facility] thiamine 100 mg tablet 2022-0 08-14 13:14: 56 Yes 1 tablet Orally Once a day [facility] terconazole 0.4 % vaginal cream 0 08-14 00:00: 00 08-29 04:59 :00 No [id number] 1{appli cator} Insert 1 Applicator into vagina at bedtime for [address] [facility] terconazole 0.4 % vaginal cream 0 08-14 00:00: 00 08-29 04:59 :00 No [id number] 1{appli cator} Insert 1 Applicator into vagina at bedtime for [address] [facility] ARIPiprazol e (ABILIFY) 10 mg tablet 2022-0 06-04 13:09: 59 Yes 1 tablet Orally Once a day [facility] metFORMIN 1,000 mg tablet 0 06-04 13:09: 59 Yes 1 tablet with a meal Orally Twice daily for [address] [facility] thiamine 100 mg tablet 2022-0 06-04 13:09: 59 Yes 1 tablet Orally Once a day [facility] ARIPiprazol e 10 mg tablet 0 06-04 10:16: 00 Yes 1 tablet [facility] Thiamine Mononitrate 100 mg Tab 2022-0 06-04 10:16: 00 Yes 1 tablet [facility] ARIPiprazol e 10 mg tablet 2022-0 06-04 10:16: 00 Yes 1 tablet [facility] Thiamine Mononitrate 100 mg Tab 2022-0 06-04 10:16: 00 Yes 1 tablet [facility] ARIPiprazol e 10 mg tablet 0 06-04 10:16: 00 Yes 1 tablet [facility] Thiamine Mononitrate 100 mg Tab 2022-0 06-04 10:16: 00 Yes 1 tablet [facility] ARIPiprazol e 10 mg tablet 0 06-04 10:16: 00 Yes 1 tablet [facility] Thiamine Mononitrate 100 mg Tab 2022-0 06-04 10:16: 00 Yes 1 tablet [facility] ARIPiprazol e 10 mg tablet 0 06-04 10:16: 00 Yes 1 tablet [facility] Thiamine Mononitrate 100 mg Tab 2022-0 - 10:16: 00 Yes 1 tablet [facility] ARIPiprazol e 10 mg tablet 2022-0 06-04 10:16: 00 Yes 1 tablet [facility] Thiamine Mononitrate 100 mg Tab 2022-0 - 10:16: 00 Yes 1 tablet [facility] ARIPiprazol e 10 mg tablet 2022-0 - 10:16: 00 Yes 1 tablet [facility] Thiamine Mononitrate 100 mg Tab 2022-0 4-03 10:16: 00 Yes [address] [facility] ARIPiprazol e 10 mg tablet 2022-0 4-03 10:16: 00 Yes [address] [facility] Thiamine Mononitrate 100 mg Tab 2022-0 4-03 10:16: 00 Yes [address] [facility] ARIPiprazol e 10 mg tablet 2022-0 4-03 10:16: 00 Yes 1 tablet [facility] Thiamine Mononitrate 100 mg Tab 2022-0 4-03 10:16: 00 Yes [address] [facility] ARIPiprazol e 10 mg tablet 2022-0 4-03 10:16: 00 Yes [address] [facility] Thiamine Mononitrate 100 mg Tab 2022-0 4-03 10:16: 00 Yes [address] [facility] ARIPiprazol e 10 mg tablet 2022-0 4-03 10:16: 00 Yes [address] [facility] Thiamine Mononitrate 100 mg Tab 2022-0 4-03 10:16: 00 Yes [address] [facility] ARIPiprazol e 10 mg tablet 2022-0 4-03 10:16: 00 Yes [address] [facility] Thiamine Mononitrate 100 mg Tab 2022-0 4-03 10:16: 00 Yes [address] [facility] terconazole 80 mg vaginal suppository 2022-0 4-03 00:00: 00 Yes [id number] 80mg Insert 1 Suppositor y into vagina at bedtime. [facility] it[facility] terconazole 80 mg vaginal suppository 3-0 4-03 00:00: 00 Yes [id number] 80mg Insert 1 Suppositor y into vagina at bedtime. [facility] terconazole 80 mg vaginal suppository 3-0 4- 00:00: 00 Yes [id number] 80mg Insert 1 Suppositor y into vagina at bedtime. [facility] terconazole 80 mg vaginal suppository 3-0 4- 00:00: 00 11-12 00:00 :00 No [id number] 80mg Insert 1 Suppositor y into vagina at bedtime. [facility] terconazole 80 mg vaginal suppository 4- 00:00: 00 11-12 00:00 :00 No [id number] 80mg Insert 1 Suppositor y into vagina at bedtime. [facility] metroNIDAZO LE 500 mg tablet - 00:00: 00 06-12 04:59 :00 No [id number] 500mg Take 1 tablet by mouth every 12 (twelve) hours for [address] [facility] etonogestre L (NEXPLANON) implant 68 mg 2021-03 18:45: 00 01-19 18:13 :00 No [id number] 68mg [facility] etonogestre L (NEXPLANON) implant 68 mg 2021-03 18:45: 00 01-19 18:13 :00 No [id number] 68mg 68 mg, Subdermal, ONCE, 1 dose, On Sat01/19/22 at 1245, Routine
Use approved by: PATIENT EXPERIENCE COORDINATOR [facility] etonogestre L (NEXPLANON) implant 68 mg 2021-03 18:45: 00 01-19 18:13 :00 No [id number] 68mg [facility] etonogestre L (NEXPLANON) implant 68 mg 2021-03 18:45: 00 01-19 18:13 :00 No [id number] 68mg 68 mg, Subdermal, ONCE, 1 dose, On Sat01/19/22 at 1245, Routine
Use approved by: PATIENT EXPERIENCE COORDINATOR [facility] ARIPiprazol e (ABILIFY) 10 mg tablet 2021-03 12:14: [address] [facility] Thiamine Mononitrate 100 mg Tab 2021-03 12:14: [address] [facility] ARIPiprazol e (ABILIFY) 10 mg tablet 2021-03 12:14: [address] [facility] Thiamine Mononitrate 100 mg Tab 2021-03 12:14: [address] [facility] ARIPiprazol e (ABILIFY) 10 mg tablet 2021-03 12:14: [address] [facility] Thiamine Mononitrate 100 mg Tab 2021-03 12:14: [address] [facility] ARIPiprazol e (ABILIFY) 10 mg tablet 2021-03 12:14: [address] [facility] Thiamine Mononitrate 100 mg Tab 2021-03 12:14: [address] [facility] terconazole 80 mg vaginal suppository 2021-03 00:00: 00 Yes [id number] 80mg Insert 1 Suppositor y into vagina at bedtime. [facility] terconazole 80 mg vaginal suppository 2021-03 00:00: 00 Yes [id number] 80mg Insert 1 Suppositor y into vagina at bedtime. [facility] terconazole 80 mg vaginal suppository 2021-03 00:00: 00 Yes [id number] 80mg Insert 1 Suppositor y into vagina at bedtime. [facility] terconazole 80 mg vaginal suppository 2021-03 00:00: 00 Yes [id number] 80mg Insert 1 Suppositor y into vagina at bedtime. [facility] terconazole 80 mg vaginal suppository 2021-03 00:00: 00 06-04 00:00 :00 No [id number] 80mg Insert 1 Suppositor y into vagina at bedtime. [facility] terconazole 80 mg vaginal suppository 10-27 00:00: 00 10-31 04:59 :00 No [id number] 80mg Insert 1 Suppositor y into vagina at bedtime for [address] [facility] lurasidone (LATUDA) 20 mg tablet 05-01 13:42: 05 Yes 20mg Take [address] [facility] lurasidone (LATUDA) 20 mg tablet 05-01 13:42: 05 Yes 20mg Take [address] [facility] lurasidone (LATUDA) 20 mg tablet 05-01 13:42: 05 Yes 20mg Take [address] [facility] lurasidone (LATUDA) 20 mg tablet 05-01 13:42: 05 Yes 20mg Take [address] [facility] lurasidone (LATUDA) 20 mg tablet 05-01 13:42: 05 Yes 20mg Take [address] [facility] lurasidone (LATUDA) 20 mg tablet 05-01 13:42: 05 Yes 20mg Take [address] [facility] lurasidone (LATUDA) 20 mg tablet 05-01 13:42: 05 Yes 20mg Take [address] [facility] lurasidone (LATUDA) 20 mg tablet 05-01 13:42: 05 Yes 20mg Take [address] [facility] lurasidone (LATUDA) 20 mg tablet 05-01 13:42: 05 Yes 20mg Take [address] [facility] lurasidone (LATUDA) 20 mg tablet 05-01 13:42: 05 Yes 20mg Take [address] [facility] lurasidone (LATUDA) 20 mg tablet 05-01 13:42: 05 Yes 20mg Take [address] [facility] lurasidone (LATUDA) 20 mg tablet 05-01 13:42: 05 Yes 20mg Take [address] [facility] lurasidone (LATUDA) 20 mg tablet 05-01 13:42: 05 Yes 20mg Take [address] [facility] lurasidone (LATUDA) 20 mg tablet 05-01 13:42: 05 Yes 20mg Take [address] [facility] lurasidone (LATUDA) 20 mg tablet 05-01 13:42: 05 Yes 20mg Take [address] [facility] lurasidone (LATUDA) 20 mg tablet 05-01 13:42: 05 Yes 20mg Take [address] [facility] lurasidone (LATUDA) 20 mg tablet 05-01 13:42: 05 Yes 20mg Take [address] [facility] lurasidone (LATUDA) 20 mg tablet 05-01 13:42: 05 Yes 20mg Take [address] [facility] Glimepiride Glimepiride 16 00:00: 00 Yes Juhi Millender 1 tablet with breakfast or the first main meal of the day [facility] albuterol 90 mcg/actuati on inhaler 8 00:00: 00 Yes INHALE 2 PUFFS BY MOUTH EVERY 4 TO 6 HOURS NEEDED FOR SHORTNESS OF BREATH [facility] metFORMIN 1,000 mg tablet 10-26 00:00: 00 Yes 1000mg Take 1,000 mg by mouth 2 (two) times daily with meals. [facility] albuterol 90 mcg/actuati on inhaler 10-26 00:00: 00 Yes INHALE 2 PUFFS BY MOUTH EVERY 4 TO 6 HOURS NEEDED FOR SHORTNESS OF BREATH [facility] metFORMIN 1,000 mg tablet 10-26 00:00: 00 Yes 1000mg Take 1,000 mg by mouth 2 (two) times daily with meals. [facility] albuterol 90 mcg/actuati on inhaler 10-26 00:00: 00 Yes INHALE 2 PUFFS BY MOUTH EVERY 4 TO 6 HOURS NEEDED FOR SHORTNESS OF BREATH [facility] metFORMIN 1,000 mg tablet 10-26 00:00: 00 Yes 1000mg Take 1,000 mg by mouth 2 (two) times daily with meals. [facility] albuterol 90 mcg/actuati on inhaler 10-26 00:00: 00 Yes INHALE 2 PUFFS BY MOUTH EVERY 4 TO 6 HOURS NEEDED FOR SHORTNESS OF BREATH [facility] metFORMIN 1,000 mg tablet 0 10-26 00:00: 00 Yes 1000mg Take 1,000 mg by mouth 2 (two) times daily [facility] meals. [facility] mcg/actuati on inhaler 0 10-26 00:00: 00 Yes INHALE 2 PUFFS BY MOUTH EVERY 4 TO 6 HOURS NEEDED FOR SHORTNESS OF BREATH [facility] metFORMIN 1,000 mg tablet 10-26 00:00: 00 Yes 1000mg Take 1,000 mg by mouth 2 (two) times daily with meals. [facility]/actu[facility] on inhaler 0 10-26 00:00: 00 Yes INHALE 2 PUFFS BY MOUTH EVERY 4 TO 6 HOURS NEEDED FOR SHORTNESS OF BREATH [facility] metFORMIN 1,000 mg tablet 10-26 00:00: 00 Yes 1000mg Take 1,000 mg by mouth 2 (two) times daily with meals. [facility] albuterol 90 mcg/actuati on inhaler 0 10-26 00:00: 00 Yes INHALE 2 PUFFS BY MOUTH EVERY 4 TO 6 HOURS NEEDED FOR SHORTNESS OF BREATH [facility] metFORMIN 1,000 mg tablet 10-26 00:00: 00 Yes 1000mg Take 1,000 mg by mouth 2 (two) times daily with meals. [facility] albuterol 90 mcg/actuati on inhaler 0 10-26 00:00: 00 Yes INHALE 2 PUFFS BY MOUTH EVERY 4 TO 6 HOURS NEEDED FOR SHORTNESS OF BREATH [facility] metFORMIN 1,000 mg tablet 0 10-26 00:00: 00 Yes 1000mg Take 1 tablet by mouth in the morning and 1 tablet in the evening. Take with meals. [facility] albuterol 90 mcg/actuati on inhaler 0 10-26 00:00: 00 Yes INHALE 2 PUFFS BY MOUTH EVERY 4 TO 6 HOURS NEEDED FOR SHORTNESS OF BREATH [facility] metFORMIN 1,000 mg tablet 10-26 00:00: 00 Yes 1000mg Take 1 tablet by mouth in the morning and 1 tablet in the evening. Take with meals. [facility] albuterol 90 mcg/actuati on inhaler 10-26 00:00: 00 Yes INHALE 2 PUFFS BY MOUTH EVERY 4 TO 6 HOURS NEEDED FOR SHORTNESS OF BREATH [facility] metFORMIN 1,000 mg tablet 10-26 00:00: 00 Yes 1000mg Take 1 tablet by mouth in the morning and 1 tablet in the evening. Take with meals. [facility] albuterol 90 mcg/actuati on inhaler 10-26 00:00: 00 Yes INHALE 2 PUFFS BY MOUTH EVERY 4 TO 6 HOURS NEEDED FOR SHORTNESS OF BREATH [facility] metFORMIN 1,000 mg tablet 10-26 00:00: 00 Yes 1000mg Take 1 tablet by mouth in the morning and 1 tablet in the evening. Take with meals. [facility] albuterol 90 mcg/actuati on inhaler 10-26 00:00: 00 Yes INHALE 2 PUFFS BY MOUTH EVERY 4 TO 6 HOURS NEEDED FOR SHORTNESS OF BREATH [facility] metFORMIN 1,000 mg tablet 10-26 00:00: 00 Yes 1000mg Take 1 tablet by mouth in the morning and 1 tablet in the evening. Take with meals. [facility] albuterol 90 mcg/actuati on inhaler 10-26 00:00: 00 Yes INHALE 2 PUFFS BY MOUTH EVERY 4 TO 6 HOURS NEEDED FOR SHORTNESS OF BREATH [facility] metFORMIN 1,000 mg tablet 10-26 00:00: 00 Yes 1000mg Take 1 tablet by mouth in the morning and 1 tablet in the evening. Take with meals. [facility] albuterol 90 mcg/actuati on inhaler 10-26 00:00: 00 Yes INHALE 2 PUFFS BY MOUTH EVERY 4 TO 6 HOURS NEEDED FOR SHORTNESS OF BREATH [facility] metFORMIN 1,000 mg tablet 10-26 00:00: 00 Yes 1000mg Take 1 tablet by mouth in the morning and 1 tablet in the evening. Take with meals. [facility] albuterol 90 mcg/actuati on inhaler 10-26 00:00: 00 Yes INHALE 2 PUFFS BY MOUTH EVERY 4 TO 6 HOURS NEEDED FOR SHORTNESS OF BREATH [facility] metFORMIN 1,000 mg tablet 10-26 00:00: 00 Yes 1000mg Take 1 tablet by mouth in the morning and 1 tablet in the evening. Take with meals. [facility] albuterol 90 mcg/actuati on inhaler 10-26 00:00: 00 Yes INHALE 2 PUFFS BY MOUTH EVERY 4 TO 6 HOURS NEEDED FOR SHORTNESS OF BREATH [facility] metFORMIN 1,000 mg tablet 10-26 00:00: 00 Yes 1000mg Take 1 tablet by mouth in the morning and 1 tablet in the evening. Take with meals. [facility] albuterol 90 mcg/actuati on inhaler 10-26 00:00: 00 Yes INHALE 2 PUFFS BY MOUTH EVERY 4 TO 6 HOURS NEEDED FOR SHORTNESS OF BREATH [facility] metFORMIN 1,000 mg tablet 10-26 00:00: 00 Yes 1000mg Take 1 tablet by mouth in the morning and 1 tablet in the evening. Take with meals. [facility] albuterol 90 mcg/actuati on inhaler 10-26 00:00: 00 Yes INHALE 2 PUFFS BY MOUTH EVERY 4 TO 6 HOURS NEEDED FOR SHORTNESS OF BREATH [facility] metFORMIN 1,000 mg tablet 10-26 00:00: 00 Yes 1000mg Take 1 tablet by mouth in the morning and 1 tablet in the evening. Take with meals. [facility] Januvia Januvia Yes Juhi Millender [address] [facility] albuterol sulfate HFA 90 mcg/actuati on aerosol inhaler albuterol sulfate HFA 90 mcg/actuati on aerosol inhaler No albuterol sulfate HFA 90 mcg/actuat ion aerosol inhaler [facility] aripiprazol e 10 mg tabs aripiprazol e 10 mg tabs No aripiprazo le 10 mg tabs [facility] aripiprazol e 10 mg tablet TAKE 1 TABLET BY MOUTH EVERY DAY IN THE MORNING aripiprazol e 10 mg tablet TAKE 1 TABLET BY MOUTH EVERY DAY IN THE MORNING No aripiprazo le 10 mg tablet TAKE 1 TABLET BY MOUTH EVERY DAY IN THE MORNING [facility] aspirin 81 mg chewable tablet aspirin 81 mg chewable tablet No aspirin 81 mg chewable tablet [facility] azithromyci n 250 mg tablet azithromyci n 250 mg tablet No azithromyc in 250 mg tablet [facility] azithromyci n 500 mg tablet azithromyci n 500 mg tablet No azithromyc in 500 mg tablet [facility] BD Veo Insulin Syringe Ultra-Fine 1/2 mL 31 gauge x 15/64" BD Veo Insulin Syringe Ultra-Fine 1/2 mL 31 gauge x 15/64" No BD Veo Insulin Syringe Ultra-Fine 1/2 mL 31 gauge x 15/64" [facility] CitraNatal Assure 35 mg iron-1 mg-50 mg-300 mg oral pack CitraNatal Assure 35 mg iron-1 mg-50 mg-300 mg oral pack No CitraNatal Assure 35 mg iron-1 mg-50 mg-300 mg oral pack [facility] citranatal assure combo pack TAKE 1 CAPSULE AND 1 TABLET BY MOUTH ONCE A DAY citranatal assure combo pack TAKE 1 CAPSULE AND 1 TABLET BY MOUTH ONCE A DAY No citranatal assure combo pack TAKE 1 CAPSULE AND 1 TABLET BY MOUTH ONCE A DAY [facility] dicyclomine 20 mg tablet dicyclomine 20 mg tablet No dicyclomin e 20 mg tablet [facility] fluconazole 150 mg tablet fluconazole 150 mg tablet No fluconazol e 150 mg tablet [facility] fluconazole 200 mg tablet TAKE 1 TABLET BY MOUTH EVERY DAY FOR 3 DAYS fluconazole 200 mg tablet TAKE 1 TABLET BY MOUTH EVERY DAY FOR 3 DAYS No fluconazol e 200 mg tablet TAKE 1 TABLET BY MOUTH EVERY DAY FOR 3 DAYS [facility] FreeStyle Lancets 28 gauge FreeStyle Lancets 28 gauge No FreeStyle Lancets 28 gauge [facility] FreeStyle Lite Meter kit FreeStyle Lite Meter kit No FreeStyle Lite Meter kit [facility] FreeStyle Lite Strips FreeStyle Lite Strips No FreeStyle Lite Strips [facility] gabapentin 100 mg caps gabapentin 100 mg caps No gabapentin 100 mg caps [facility] gabapentin 100 mg capsule gabapentin 100 mg capsule No gabapentin 100 mg capsule [facility] glimepiride 2 mg tabs glimepiride 2 mg tabs No glimepirid e 2 mg tabs [facility] glimepiride 2 mg tablet TAKE 1 TABLET BY MOUTH EVERY DAY WITH BREAKFAST OR FIRST MAIN MEAL OF THE DAY glimepiride 2 mg tablet TAKE 1 TABLET BY MOUTH EVERY DAY WITH BREAKFAST OR FIRST MAIN MEAL OF THE DAY No glimepirid e 2 mg tablet TAKE 1 TABLET BY MOUTH EVERY DAY WITH BREAKFAST OR FIRST MAIN MEAL OF THE DAY [facility] Humulin N NPH U-100 Insulin (isophane susp) 100 unit/mL subcutaneou s Humulin N NPH U-100 Insulin (isophane susp) 100 unit/mL subcutaneou s No Humulin N NPH U-100 Insulin (isophane susp) 100 unit/mL subcutaneo us [facility] Humulin R Regular U-100 Insulin 100 unit/mL injection solution Humulin R Regular U-100 Insulin 100 unit/mL injection solution No Humulin R Regular U-100 Insulin 100 unit/mL injection solution [facility] ibuprofen 600 mg tabs ibuprofen 600 mg tabs No ibuprofen 600 mg tabs [facility] ibuprofen 600 mg tablet ibuprofen 600 mg tablet No ibuprofen 600 mg tablet [facility] ibuprofen 800 mg tablet ibuprofen 800 mg tablet No ibuprofen 800 mg tablet [facility] Latuda 20 mg tablet TAKE 1 TABLET BY MOUTH NIGHTLY WITH A SMALL MEAL OF A MINIMUM OF 350 CALORIES Latuda 20 mg tablet TAKE 1 TABLET BY MOUTH NIGHTLY WITH A SMALL MEAL OF A MINIMUM OF 350 CALORIES No Latuda 20 mg tablet TAKE 1 TABLET BY MOUTH NIGHTLY WITH A SMALL MEAL OF A MINIMUM OF 350 CALORIES [facility] metformin 1,000 mg tablet metformin 1,000 mg tablet No metformin 1,000 mg tablet [facility] metformin 500 mg tablet TAKE 1 TABLET BY MOUTH TWICE A DAY WITH A MEAL metformin 500 mg tablet TAKE 1 TABLET BY MOUTH TWICE A DAY WITH A MEAL No metformin 500 mg tablet TAKE 1 TABLET BY MOUTH TWICE A DAY WITH A MEAL [facility] metformin hydrochlori de 500 mg tabs metformin hydrochlori de 500 mg tabs No metformin hydrochlor socorro 500 mg tabs [facility] metronidazo le 500 mg tablet metronidazo le 500 mg tablet No metronidaz ole 500 mg tablet [facility] nitrofurant oin monohydrate /macrocryst als 100 mg capsule nitrofurant oin monohydrate /macrocryst als 100 mg capsule No nitrofuran toin monohydrat e/macrocry stals 100 mg capsule [facility] Nystop 100,000 unit/gram topical powder Nystop 100,000 unit/gram topical powder No Nystop 100,000 unit/gram topical powder [facility] ondansetron HCl 4 mg tablet ondansetron HCl 4 mg tablet No ondansetro n HCl 4 mg tablet [facility] onetouch christiano ultra onetouch christiano ultra No onetouch christiano ultra [facility] OneTouch Ultra Blue Test Strip OneTouch Ultra Blue Test Strip No OneTouch Ultra Blue Test Strip [facility] oseltamivir 75 mg capsule oseltamivir 75 mg capsule No oseltamivi r 75 mg capsule [facility] proair hfa 108 mcg/act aers proair hfa 108 mcg/act aers No proair hfa 108 mcg/act aers [facility] sulfamethox azole 800 mg-trimetho prim 160 mg tablet sulfamethox azole 800 mg-trimetho prim 160 mg tablet No sulfametho xazole 800 mg-trimeth oprim 160 mg tablet [facility] Immunizations Ordered Immunization Name Filled Immunization Name Date Status Comments Source Influenza Virus Vaccine Quad .5 mL IM 6+ MO 2018-12-01 00:00:00 Completed [facility] Influenza Virus Vaccine Quad .5 mL IM 6+ MO 2018-12-01 00:00:00 Completed [facility] Influenza Virus Vaccine Quad .5 mL IM 6+ MO 2018-12-01 00:00:00 Completed [facility] Influenza Virus Vaccine Quad .5 mL IM 6+ MO 2018-12-01 00:00:00 Completed [facility] Influenza Virus Vaccine Quad .5 mL IM 6+ MO 2018-12-01 00:00:00 Completed [facility] Influenza Virus Vaccine Quad .5 mL IM 6+ MO 2018-12-01 00:00:00 Completed [facility] Influenza Virus Vaccine Quad .5 mL IM 6+ MO 2018-12-01 00:00:00 Completed [facility] Influenza Virus Vaccine Quad .5 mL IM 6+ MO 2018-12-01 00:00:00 Completed [facility] Influenza Virus Vaccine Quad .5 mL IM 6+ MO 2018-12-01 00:00:00 Completed [facility] Influenza Virus Vaccine Quad .5 mL IM 6+ MO (FLUZONE/FLULAVAL/F LUARIX) 2018-12-01 00:00:00 Completed [facility] Influenza Virus Vaccine Quad .5 mL IM 6+ MO (FLUZONE/FLULAVAL/F LUARIX) 2018-12-01 00:00:00 Completed [facility] Influenza Virus Vaccine Quad .5 mL IM 6+ MO (FLUZONE/FLULAVAL/F LUARIX) 2018-12-01 00:00:00 Completed [facility] Influenza Virus Vaccine Quad .5 mL IM 6+ MO (FLUZONE/FLULAVAL/F LUARIX) Unknown Completed [facility] Influenza Virus Vaccine Quad .5 mL IM 6+ MO (FLUZONE/FLULAVAL/F LUARIX) Unknown Completed [facility] Influenza Virus Vaccine Quad .5 mL IM 6+ MO (FLUZONE/FLULAVAL/F LUARIX) Unknown Completed [facility] Influenza Virus Vaccine Quad .5 mL IM 6+ MO (FLUZONE/FLULAVAL/F LUARIX) Unknown Completed [facility] Influenza Virus Vaccine Quad .5 mL IM 6+ MO (FLUZONE/FLULAVAL/F LUARIX) Unknown Completed [facility] Influenza Virus Vaccine Quad .5 mL IM 6+ MO (FLUZONE/FLULAVAL/F LUARIX) Unknown Completed [facility] Vital Signs Vital Name Observation Time Observation Value Comments S ource Systolic blood pressure 2023-05-06 16:30:00 105 mm[Hg] [facility] Diastolic blood pressure 2023-05-06 16:30:00 67 mm[Hg] [facility] Heart rate 2023-05-06 16:30:00 92 /min [facility] Body temperature 2023-05-06 16:30:00 36.5 Samanta [facility] Respiratory rate 2023-05-06 16:30:00 18 /min [facility] Body weight 2023-05-06 16:30:00 83.008 kg [facility] BMI 2023-05-06 16:30:00 36.34 kg/m2 [facility] Systolic blood pressure 2022-11-12 15:17:00 117 mm[Hg] [facility] Diastolic blood pressure 2022-11-12 15:17:00 75 mm[Hg] [facility] Heart rate 2022-11-12 15:17:00 98 /min [facility] Body temperature 2022-11-12 15:17:00 36.56 Samanta [facility] Respiratory rate 2022-11-12 15:17:00 16 /min [facility] Body height 2022-11-12 15:17:00 151.1 cm [facility] Body weight 2022-11-12 15:17:00 81.784 kg [facility] BMI 2022-11-12 15:17:00 35.81 kg/m2 [facility] 2022-08-14 18:21:00 97 mm[Hg] [facility] Diastolic blood pressure 2022-08-14 18:21:00 68 mm[Hg] [facility] o [facility] Heart rate 2022-08-14 18:21:00 88 /min [facility] 2022-08-14 18:21:00 18 /min [facility] Body height 2022-08-14 18:21:00 151.1 cm [facility] weight 2022-08-14 18:21:00 83.462 kg Univ [facility] BMI 2022-08-14 18:21:00 36.54 kg/m2 [facility] Systolic blood pressure 2022-06-04 15:15:00 109 mm[Hg] [facility] o [facility] Diastolic blood pressure 2022-06-04 15:15:00 69 mm[Hg] [facility] Heart rate 2022-06-04 15:15:00 103 /min Un[facility] Respiratory rate 2022-06-04 15:15:00 18 /min [facility] Body height 2022-06-04 15:15:00 149.9 cm [facility] Body weight 2022-06-04 15:15:00 84.369 kg [facility] BMI 2022-06-04 15:15:00 37.57 kg/m2 [facility] Systolic blood pressure 2022-01-19 16:47:00 98 mm[Hg] [place] [facility] Diastolic blood pressure 2022-01-19 16:47:00 60 mm[Hg] [facility] Heart rate 2022-01-19 16:47:00 97 /min Unive [facility] Body temperature 2022-01-19 16:47:00 36.44 Samanta [facility] Respiratory rate 2022-01-19 16:47:00 18 /min [facility] Body height 2022-01-19 16:47:00 149.9 cm [facility] Body weight 2022-01-19 16:47:00 86.637 kg [facility] BMI 2022-01-19 16:47:00 38.58 kg/m2 [facility] Systolic blood pressure 2021-10-27 15:09:00 106 mm[Hg] [facility] Diastolic blood pressure 2021-10-27 15:09:00 72 mm[Hg] [facility] Heart rate 2021-10-27 15:09:00 97 /min [facility] Body temperature 2021-10-27 15:09:00 36.72 Samanta [facility] Respiratory rate 2021-10-27 15:09:00 18 /min [facility] Body height 2021-10-27 15:09:00 149.9 cm [facility] Body weight 2021-10-27 15:09:00 84.823 kg [facility] BMI 2021-10-27 15:09:00 37.77 kg/m2 [facility] Height 2019-05-11 00:00:00 59 [in_i] [facility] BMI (Body Mass Index) 2019-05-11 00:00:00 39.9 kg/m2 [facility] Body Weight 2019-05-11 00:00:00 197.6 [lb_av] [facility] Procedures Procedure Date / Time Performed Performing Clinician Source CONSENT TO CONTACT FOR VOLUNTARY RESEARCH 2023-05-06 16:10:37 Doctor Unassigned, [employer] [facility] POCT TEST 2022-11-12 00:00:00 Mohinder Cr [facility] ASSIGNMENT OF BENEFITS 2022-06-04 14:57:43 Docto r Unassigned, [employer] [facility] CONSENT FOR CONTRACEPTION 2022-01-19 06:01:00 Doctor Unassigned, [employer] [facility] Encounters Start Date/Time End Date/Time Encounter Type Admission Type Attending Clinicians Care Facility Care Department Encounter ID Source 2021-03-29 13:59:02 Outpatient Juhi Williamson [facility] [id number] [facility] 2021-03-29 11:46:20 Outpatient Juhi Williamson [facility] [id number] [facility] 2021-03-29 11:40:31 Outpatient Juhi Williamson [facility] [id number] [facility] 2021-03-29 11:31:33 Outpatient Juhi Williamson [facility] [id number] [facility] 2021-03-29 11:13:16 Outpatient [facility] [id number] [facility] 2023-05-09 10:45:47 2023-05-09 10:45:47 Outpatient SFA SFA [id number] Jasiel Mcallister 2023-05-09 00:00:00 2023-05-09 00:00:00 Case Management Sue Sawyer [facility] [id number] 350.1.13.10 4.2.7.2.[id number] [facility] 2023-05-06 13:04:24 2023-05-06 13:04:24 Outpatient SFA SFA [id number] Jasiel Mcallister 2023-05-06 10:00:00 2023-05-06 10:30:00 Office Visit Kaleb Sawyersol [facility] [id number] 350.1.13.10 4.2.7.2.[id number] [facility] 2023-05-06 10:00:00 2023-05-06 10:00:00 Outpatient R KALEB SAWYERSOL KALEB SAWYERSOL [facility] [id number] [facility] 2023-05-06 00:00:00 2023-05-06 00:00:00 Orders Only Doctor Unassigned, [employer] [facility] 1.840.114 350.1.13.10 4.2.7.2.[id number] [facility] 2023-04-16 11:06:30 2023-04-16 11:06:30 Outpatient SFA [id number] Jasiel Mcallister 2023-03-19 13:18:48 2023-03-19 13:18:48 Outpatient SFA [id number] Jasiel Mcallister 2023-03-07 09:30:00 2023-03-07 09:30:00 Outpatient SFA [id number] Jasiel Mcallister 2023-03-02 00:00:00 2023-03-02 00:00:00 [facility] 1.0.114 350.1.13.10 4.2.7.2.[id number] [facility] 2023-01-04 11:35:13 2023-01-04 11:35:13 Outpatient SFA [id number] Jasiel Flowers [facility] 2023-01-03 09:30:00 2023-01-03 09:30:00 Outpatient [facility] [id number] Jasiel Flowers [facility] 2022-12-18 00:00:00 2022-12-18 00:00:00 Telephone Sabine Velasquez 1.840.114 350.1.13.10 4.2.7.2.[id number] [facility] 2022-12-06 09:22:49 2022-12-06 09:22:49 Outpatient SFA [id number] Jasiel Mcallister 2022-11-14 00:00:00 2022-11-14 00:00:00 [facility] 1.0.114 350.1.13.10 4.2.7.2.[id number] [facility] 2022-11-12 11:30:00 2022-11-12 11:30:00 Office Visit TayoJodie [facility] 1..114 350.1.13.10 4.2.7.2.[id number] [facility] 2022-11-12 11:30:00 2022-11-12 10:37:52 Outpatient R MARLYNJODIE FELICIANO DEREKJODIE HE [facility] [id number] [facility] 2022-11-08 10:28:34 2022-11-08 10:28:34 Outpatient SFA SFA [id number] Jasiel Mcallister 2022-10-18 10:30:00 2022-10-18 10:30:00 Outpatient R TAYOJODIE DEREKYING JODIE [facility] [id number] [facility] 2022-09-27 14:00:48 2022-09-27 14:00:48 Outpatient SFA SFA [id number] Jasiel Mcallister 2022-09-03 15:32:27 2022-09-03 15:32:27 Outpatient SFA SFA [id number] Jasiel Mcallister 2022-08-14 13:45:00 2022-08-14 13:45:00 [facility] 1.840.114 350.1.13.10 4.2.7.2.[id number] [facility] 2022-08-14 13:45:00 2022-08-14 13:31:19 Outpatient R DEREKANGELICAKARENJODIE FELICIANO DEREKJODIE HE [facility] [id number] [facility] 2022-06-04 11:00:00 2022-06-04 11:00:00 [facility] 1.840.114 350.1.13.10 4.2.7.2.[id number] [facility] 2022-06-04 11:00:00 2022-06-04 10:52:29 Outpatient R [facility]IE [id number] 2022-06-04 00:00:00 2022-06-04 00:00:00 Orders Only Doctor Unassigned, [employer] [facility] [id number] 350.1.13.10 4.2.7.2.[id number] [facility] 2022-01-19 10:00:00 2022-01-19 11:10:51 [facility] [id number] [facility] 2022-01-19 10:00:00 2022-01-19 11:10:51 Office Visit [facility] [id number] 350.1.13.10 4.2.7.2.[id number] [facility] 2022-01-19 00:00:00 2022-01-19 00:00:00 Orders Only Doctor Unassigned, [employer] [facility] [id number] 350.1.13.10 4.2.7.2.[id number] [facility] 2021-11-03 00:00:00 2021-11-03 00:00:00 Luzmaria Briseno [facility] [id number] 350.1.13.10 4.2.7.2.[id number] [facility] 2021-10-31 15:30:00 2021-10-31 15:30:00 Outpatient R LUZMARIA DOYLE [facility] [id number] [facility] 2021-10-27 10:00:00 2021-10-27 10:23:32 Office Visit Jodie Cr [facility] [id number] 350.1.13.10 4.2.7.2.[id number] [facility] 2021-10-27 10:00:00 2021-10-27 10:23:32 [id number] 2021-10-27 10:00:00 2021-10-27 10:00:00 [id number] 2021-08-22 10:00:00 2021-08-22 10:00:00 Outpatient Jose Roberto RICARDO DOYLEN [facility] [id number] [facility] 2021-08-22 10:00:00 2021-08-22 10:00:00 Outpatient Jose Roberto RICARDO DOYLEN [facility] [id number] [facility] 2021-07-13 00:00:00 2021-07-13 00:00:00 [facility] [id number] 350.1.13.10 4.2.7.2.[id number] [facility] 2021-07-12 11:00:00 2021-07-12 11:00:00 Office Visit Jodie Cr [facility] [id number] 350.1.13.10 4.2.7.2.[id number] [facility] 2021-07-12 11:00:00 2021-07-12 10:31:28 Outpatient R JODIE CR CHERYAL [facility] [id number] [facility] 2021-05-24 03:02:00 2021-05-24 03:02:00 Outpatient DESAI_RAKES H [facility] [id number] [facility] 2021-05-24 00:00:00 2021-05-24 00:00:00 Rylee Villalobos Michelle, PSYD: [address], [place] [address] , Ph. [phone] [facility] [place] [facility] [facility] [id number] [facility] 2021-05-23 05:24:00 2021-05-23 05:24:00 Outpatient DESAI_RAKES H [facility] [id number] [facility] 2021-05-19 00:00:00 2021-05-19 00:00:00 Case Management [facility] 1..840.114 350.1.13.10 4.2.7.2.[id number] [facility] 2021-05-16 09:00:00 2021-05-16 09:39:46 Outpatient R JODIE CR CHERYAL [facility] [id number] [facility] 2021-05-16 09:00:00 2021-05-16 09:39:46 Office Visit Jodie Cr [facility] 1..840.114 350.1.13.10 4.2.7.2.[id number] [facility] 2021-05-03 00:00:00 2021-05-03 00:00:00 Luzmaria Briseno [facility] 1..840.114 350.1.13.10 4.2.7.2.[id number] [facility] 2021-05-01 13:00:00 2021-05-01 13:55:01 Outpatient R LUZMARIA DOYLE [facility] [id number] [facility] 2021-05-01 13:00:00 2021-05-01 13:55:01 Office Visit Luzmaria Doyle [facility] 1.2.840.114 350.1.13.10 4.2.7.2.[id number] [facility] 2021-05-01 00:00:00 2021-05-01 00:00:00 Orders Only Doctor Unassigned, [employer] [facility] 1.2.840.114 350.1.13.10 4.2.7.2.[id number] [facility] 2021-04-25 00:00:00 2021-04-25 00:00:00 Telephone Luzmaria Doyle [facility] 1.2.840.114 350.1.13.10 4.2.7.2.[id number] [facility] 2021-01-18 09:30:00 2021-01-18 09:30:00 Outpatient R [facility] [id number] [facility] 2020-11-28 10:35:00 2020-11-28 10:35:00 Outpatient [facility] [id number] [facility] 2020-11-28 00:00:00 2020-11-28 00:00:00 Julio Pond MD: [address] [place] [address] , Ph. [phone] [facility] Jeanne Jain [facility] B[facility] [id number] [facility] 2020-11-02 04:04:00 2020-11-02 04:04:00 Outpatient DESAI_RAKES [facility] [id number] [facility] 2020-11-02 00:00:00 2020-11-02 00:00:00 Rylee Martinez, SAMANTHAYD: [address] [place] [address] , Ph. [phone]) --[phone] [facility] Jain H[facility] - [facility] [id number] [facility] 2020-10-29 01:43:00 2020-10-29 01:43:00 Outpatient DESAI_RAKES H [facility] [id number] [facility] 2020-10-18 02:40:00 2020-10-18 02:40:00 Outpatient DESAI_RAKES H [facility] [id number] [facility] 2020-10-18 00:00:00 2020-10-18 00:00:00 Rylee Martinez, SAMANTHAYD: [address] [place] [address] , Ph. [phone]) --[phone] [facility]ain [facility] - [facility] [id number] [facility] 2020-10-12 09:30:00 2020-10-12 09:30:00 Outpatient R [facility] [id number] [facility] 2020-10-05 11:00:00 2020-10-05 11:00:00 Outpatient R LUZMARIA DOYLE [facility] [id number] [facility] 2020-09-13 02:57:00 2020-09-13 02:57:00 Outpatient DESAI_RAKES H [facility] [id number] [facility] 2020-09-13 00:00:00 2020-09-13 00:00:00 Rylee Martinez, PSYD: [address] [place] [address] , Ph. [phone]) --[phone] [facility] Jain [facility] - [facility] B[facility] [id number] [facility] 2020-09-12 04:32:00 2020-09-12 04:32:00 Outpatient DESAI_RAKES H [facility] [id number] [facility] 2020-08-22 03:33:00 2020-08-22 03:33:00 Outpatient DESAI_RAKES H [facility] [id number] [facility] 2020-08-22 00:00:00 2020-08-22 00:00:00 Rylee Martinez, SAMATNHAYD: [address] [place] [address] , Ph. [phone] [facility] Jain [facility] [id number] [facility] 2020-08-08 03:05:00 2020-08-08 03:05:00 Outpatient DESAI_RAKES H [facility] [id number] [facility] 2020-08-08 00:00:00 2020-08-08 00:00:00 Rylee Martinez PSYD: [address] [place] [address] , Ph. [phone]) --2007 [facility] Jain [facility] [id number] [facility] 2020-08-04 10:45:00 2020-08-04 10:45:00 Outpatient R [facility] [id number] [facility] 2020-07-04 03:03:00 2020-07-04 03:03:00 Outpatient DESAI_RAKES H [facility] [id number] [facility] 2020-07-04 00:00:00 2020-07-04 00:00:00 SAMANTHA HoneycuttYD: [address] [place] [address] , Ph. [phone] [facility] Jain [facility] B[facility] [id number] [facility] 2020-07-01 11:00:00 2020-07-01 11:00:00 Outpatient R [facility] [id number] [facility] 2020-06-28 15:00:00 2020-06-28 15:00:00 Outpatient R ABHI LUZMARIA [facility] [id number] [facility] 2020-06-27 02:35:00 2020-06-27 02:35:00 Outpatient DESAI_RAKES H [facility] [id number] [facility] 2020-05-30 03:34:00 2020-05-30 03:34:00 Outpatient DESAI_RAKES H [facility] [id number] [facility] 2020-05-30 00:00:00 2020-05-30 00:00:00 Rylee Martinez, PSYD: [address] [place] [address] , Ph. [phone] [facility] Jain [facility] [id number] [facility] 2020-05-24 00:00:00 2020-05-24 00:00:00 Patient Outreach Jax Rodrigez [facility] [id number] 350.1.13.10 [id number] [id number] 2020-04-26 11:00:00 2020-04-26 11:00:00 Outpatient Jose Roberto DOYLE LUZMARIA [facility] [id number] [facility] 2020-03-29 04:27:00 2020-03-29 04:27:00 Outpatient DESAI_RAKES H [facility] [id number] [facility] 2020-03-29 00:00:00 2020-03-29 00:00:00 Rylee Martinez, PSYD: [address] [place] [address] , Ph. [phone]) --2007 [facility] Jain [facility] - [facility] [id number] [facility] 2020-03-08 04:02:00 2020-03-08 04:02:00 Outpatient DESAI_RAKES H [facility] [id number] [facility] 2020-03-08 00:00:00 2020-03-08 00:00:00 Rylee Martinez, PSYD: [address] [place] [address] , Ph. [phone]) --2007 [facility] [facility]ain [facility] - [facility] [id number] [facility] 2020-03-07 12:14:00 2020-03-07 12:14:00 Outpatient DESAI_RAKES H [facility] [id number] [facility] 2020-02-10 05:44:00 2020-02-10 05:44:00 Outpatient DESAI_RAKES H [facility] [id number] [facility] 2020-02-09 03:02:00 2020-02-09 03:02:00 Outpatient DESAI_RAKES H [facility] [id number] [facility] 2020-02-09 00:00:00 2020-02-09 00:00:00 Rylee Martinez, PSYD: [address] [place] [address] , Ph. [phone] [facility] [place] [facility] - [facility] [id number] [facility] 2020-02-08 05:56:00 2020-02-08 05:56:00 Outpatient DESAI_RAKES H [facility] [id number] [facility] 2020-02-08 00:00:00 2020-02-08 00:00:00 Julio Pond MD: [address] [place] [address] , Ph. ([phone]) --2007 [facility]ain [facility] - [facility] [place] [id number] [facility] 2020-01-19 04:04:00 2020-01-19 04:04:00 Outpatient DESAI_RAKES H [facility] [id number] [facility] 2020-01-19 00:00:00 2020-01-19 00:00:00 Rylee Martinez, PSYD: [address] [place] [address] , Ph. [phone]) --2007 [facility]ain [facility] - [facility] B[facility] [id number] [facility] 2020-01-12 10:43:00 2020-01-12 10:43:00 Outpatient DESAI_RAKES H [facility] [id number] [facility] 2020-01-06 05:54:00 2020-01-06 05:54:00 Outpatient DESAI_RAKES H [facility] [id number] [facility] 2020-01-06 00:00:00 2020-01-06 00:00:00 Rylee Martinez, PSYD: [address] [place] [address] , Ph. ([phone]) --2007 [facility] [place] [facility]ain [facility] - [facility] [id number] [facility] 2019-12-23 12:05:00 2019-12-23 12:05:00 Outpatient DESAI_RAKES H [facility] [id number] [facility] 2019-12-23 00:00:00 2019-12-23 00:00:00 Rylee Martinez, SAMANTHAYD: [address] [place] [address] , Ph. [phone]) --2007 [facility] B[facility] [id number] [facility] 2019-12-09 11:49:00 2019-12-09 11:49:00 Outpatient DESAI_RAKES H [facility] [id number] [facility] 2019-12-09 00:00:00 2019-12-09 00:00:00 Rylee Martinez, SAMANTHAYD: [address] [place] [address] , Ph. [phone]) --2007 [facility]ain [facility] B[facility] [id number] [facility] 2019-12-07 00:00:00 2019-12-07 00:00:00 Luzmaria Briseno [facility] [id number] 350.1.13.10 [id number] [id number] 2019-11-30 11:00:00 2019-11-30 11:00:00 Outpatient Jose Roberto RICARDO DOYLEN [facility] [id number] [facility] 2019-11-25 05:14:00 2019-11-25 05:14:00 Outpatient DESAI_RAKES H [facility] [id number] [facility] 2019-11-24 02:59:00 2019-11-24 02:59:00 Outpatient DESAI_RAKES H [facility] [id number] [facility] 2019-11-24 00:00:00 2019-11-24 00:00:00 Rylee Martinez, SAMANTHAYD: [address] [place] [address] , Ph. [phone]) --2007 [facility] [place] [facility] [place] Jain [facility] - [facility] B[facility] [id number] [facility] 2019-11-22 01:53:00 2019-11-22 01:53:00 Outpatient DESAI_RAKES H [facility] [id number] [facility] 2019-11-17 17:01:00 2019-11-17 17:01:00 [facility] [id number] [facility] 2019-11-12 16:00:00 2019-11-12 16:00:00 Outpatient ROSELYN BEASLEY [facility] [id number] [facility] 2019-11-10 03:03:00 2019-11-10 03:03:00 Outpatient DESAI_RAKES H [facility] [id number] [facility] 2019-11-10 00:00:00 2019-11-10 00:00:00 Rylee Martinez PSYD: [address] [place] [address] , Ph. [phone] [facility] [place] Jain [facility] - [facility] B[facility] [id number] [facility] 2019-10-29 15:30:00 2019-10-29 15:30:00 Outpatient STEPHANIE MEJIA [facility] [id number] [facility] 2019-10-27 14:40:00 2019-10-27 14:40:00 Outpatient [facility] [id number] [facility] 2019-10-19 03:50:00 2019-10-19 03:50:00 Outpatient DESAI_RAKES H [facility] [id number] [facility] 2019-10-19 00:00:00 2019-10-19 00:00:00 Julio Pond MD: [place] [address] , Ph. [phone] [facility] [place] [facility] [place] Jain [facility] - [facility] [place] [id number] [facility] 2019-10-17 01:22:00 2019-10-17 01:22:00 Outpatient DESAI_RAKES H [facility] [id number] [facility] 2019-10-15 14:30:00 2019-10-15 14:30:00 Outpatient STEPHANIE MEJIA [facility] [id number] [facility] 2019-10-15 05:11:00 2019-10-15 05:11:00 Outpatient DESAI_RAKES H [facility] [id number] [facility] 2019-10-15 00:00:00 2019-10-15 00:00:00 Rylee Martinez, PSYD: [address] [place] [address] , Ph. [phone] [facility] [place] Jain HOP - [facility] [place] [id number] [facility] 2019-09-21 00:00:00 2019-09-21 00:00:00 Telephone Ying Moreno [place] [id number] 350.1.13.10 [id number] [id number] 134 [id number] 2019-09-14 13:30:00 2019-09-14 13:30:00 Outpatient GUERRERO DAMON [facility] [id number] [facility] 2019-09-02 00:00:00 2019-09-02 00:00:00 Case Management AdRoselyn perkins [address]840.114 350.1.13.10 [id number] [id number] 134 [id number] 2019-09-02 00:00:00 2019-09-02 00:00:00 Telephone Adum, Roselyn [facility] 1.2.840.114 350.1.13.10 4.2.7.2.686 [id number] 2019-09-01 15:39:46 2019-09-01 16:19:40 Office Visit Roselyn [facility] 1.2.840.114 350.1.13.10 [id number] [id number] 2019-09-01 16:00:00 2019-09-01 16:00:00 Outpatient R ROSELYN DAVE [facility] [id number] [facility] 2019-08-31 04:02:00 2019-08-31 04:02:00 Outpatient DESAI_RAKES H [facility] [id number] [facility] 2019-08-31 00:00:00 2019-08-31 00:00:00 Rylee Martinez, SAMANTHAYD: [address] [address] , Ph. [phone] --2007 [facility] - [facility] B[facility] [id number] [facility] 2019-08-20 13:15:00 2019-08-20 13:15:00 Outpatient GUERRERO DAMON [facility] [id number] [facility] 2019-08-19 12:55:00 2019-08-19 12:55:00 Outpatient DESAI_RAKES H [facility] [id number] [facility] 2019-08-19 00:00:00 2019-08-19 00:00:00 SAMANTHA HoneycuttYD: [address] [place] [address] , Ph. [phone] [facility] [place] [facility]ain HOP - [facility] B[facility] [id number] [facility] 2019-08-18 01:28:00 2019-08-18 01:28:00 Outpatient DESAI_RAKES H [facility] [id number] [facility] 2019-07-20 02:48:00 2019-07-20 02:48:00 Outpatient DESAI_RAKES H [facility] [id number] [facility] 2019-07-20 00:00:00 2019-07-20 00:00:00 Julio Pond MD: [place] [address] , Ph. [phone] --[phone] [facility] [id number] [facility] 2019-07-18 12:18:00 2019-07-18 12:18:00 Outpatient DESAI_RAKES H [facility] [id number] [facility] 2019-07-13 13:00:00 2019-07-13 13:00:00 Outpatient GUERRERO DAMON [facility] [id number] [facility] 2019-06-04 09:30:00 2019-06-04 09:30:00 [facility] [id number] [facility] 2019-05-11 11:25:00 2019-05-11 11:25:00 Outpatient DESAI_RAKES H [facility] [id number] [facility] 2019-05-11 00:00:00 2019-05-11 00:00:00 Julio Pond MD: [place] [address] , Ph. [phone] --[phone] [facility] [facility]ain [facility] [id number] [facility] 2019-04-13 02:41:00 2019-04-13 02:41:00 Outpatient DESAI_RAKES H [facility] [id number] [facility] 2019-04-13 00:00:00 2019-04-13 00:00:00 Julio Podn MD: [address] [place] [address] , Ph. [phone] [facility] Jain [facility] Behavior[facility] Health [id number] [facility] 2019-02-26 02:30:00 2019-02-26 02:30:00 Outpatient [facility] [id number] [facility] 2018-12-15 00:00:00 2018-12-15 00:00:00 Rylee Martinez PSYD: [address], [facility], [place] [address] , Ph. [phone] [facility] Jain [facility] Behavior[facility] Health [id number] [facility] 2017-09-12 15:08:00 2017-09-12 17:00:00 Emergency E RYLEE LOMBARDO [facility] [place] [place] [facility] [id number] [facility] 2017-04-07 11:39:00 2017-04-07 13:16:00 Emergency E JHUI CAMPBELL [facility] [place] [place] [facility] [id number] [facility] 2016-12-17 11:05:00 2016-12-17 13:47:00 Emergency E CHANDLER, YUKI [facility] [place] [place] [facility] [id number] [facility] Results Test Description Test Time Test Comments Results Result Co mments Source [facility] [id number] 04:29:40* Test Item Value Reference Range Interpretation Comme nts CHOLESTEROL (test code = 2210) 166 MG/DL <200 TRIGLYCERIDES (test code = 2232) 189 MG/DL <150 H HDL CHOLESTEROL (test code = 2220) 39 MG/DL >39 L CALC LDL CHOL (test code = 2237) 99 MG/DL <100 NOTE: CALCULATED LDL IS BASED ON KISHA-SILVA METHOD WHICHINCLUDES ADJUSTABLE TRIGLYCERIDE:VLDL CHOLESTEROL RATIO.THIS FACTOR VARIES BY MEASURED TRIGLYCERIDE AND NON-HDLCHOLESTEROL CONCENTRATIONS WITH INCREASED CALCULATED LDL SEENIN HIGHER TRIGLYCERIDE OR LOWER NON-HDL SPECIMENS. FOR MOREINFORMATION, SEE CLIENT ANNOUNCEMENT AT [email or web address] RATIO LDL/HDL (test code = 2238) 2.54 RATIO <3.22 COMPREHENSIVE METABOLIC [id number] 04:29:40* Test Item Value Reference Range Interpretation Comme nts GLUCOSE (test code = 7) 305 MG/DL 70-99 H BUN (test code = 2207) 11 MG/DL 6-20 CREATININE (test code = 221) 0.46 MG/DL 0.60-1.30 L eGFR (2020 CKD-EPI) (test code = 50052) 130 ML/MIN/1.73 >60 CALC BUN/CREAT (test code = 2235) 24 RATIO 6-28 SODIUM (test code = 223) 142 MEQ/L 133-146 POTASSIUM (test code = 2228) 4.4 MEQ/L 3.5-5.4 CHLORIDE (test code = 5) 106 MEQ/L 95-107 CARBON DIOXIDE (test code = 2206) 23 MEQ/L 19-31 CALCIUM (test code = 2209) 8.8 MG/DL 8.5-10.5 PROTEIN, TOTAL (test code = 222) 6.8 G/DL 6.1-8.3 ALBUMIN (test code = 2201) 4.1 G/DL 3.5-5.2 CALC GLOBULIN (test code = 2240) 2.7 G/DL 1.9-3.7 CALC A/G RATIO (test code = 223) 1.5 RATIO 1.0-2.6 BILIRUBIN, TOTAL (test code = 2207) 0.3 MG/DL <=1.2 ALKALINE PHOSPHATASE (test code = 220) 111 U/L 40-114 AST (test code = 2218) 15 U/L 9-40 ALT (test code = 2219) 11 U/L 5-40 UNLESS OTHERWISE INDICATED, ALL TESTING PERFORMED AT [facility] [address] [place] [address] 20537 CONSULTING SALES EXECUTIVE: BHUPINDER MCNEIL M.D. [place] NUMBER [id number] [facility] [place]. [id number] HEMOGLOBIN [id number] 02:22:19* Test Item Value Reference Range Interpretation Comme nts HEMOGLOBIN A1c (test code = 27810) 9.7 % 4.2-5.6 H [employer] GUIDELINES FOR HGB A1C: PREDIABETES/INCREASED RISK . . . . . . . 5.7-6.4% DIAGNOSIS OF DIABETES . . . . . . . . . >=6.5% WITH CONFIRMATION OR APPROPRIATE SYMPTOMS NOTE: ASSAY MAY BE AFFECTED BY HEMOGLOBINOPATHIES (SICKLE CELL ANEMIA, S-C DISEASE, OTHERS) OR ARTIFICIALLY LOWERED BY DECREASED RED CELL SURVIVAL (HEMOLYTIC ANEMIAS, BLOOD LOSS, ETC.). CONSIDER ALTERNATE TESTING OR LABORATORY CONSULTATION. POCT [id number] 15:16:00* Test Item Value Reference Range Interpretation Comme nts POCT PREG (test code = 1605) Negative On board controls acceptable with C Line (test code = 3574) Yes POCT PREG LOT # (test code = 3575) POCT PREG TEST DATE ( test code = 3576) [id number] 15:16:00* Test Item Value Reference Range Interpretation Comme nts POCT PREG (test code = 1605) Negative On board controls acceptable with C Line (test code = 3574) Yes POCT PREG LOT # (test code = 3575) POCT PREG TEST DATE ( test code = 3576) [facility], THIRD [id number] 06:53:18* Test Item Value Reference Range Interpretation Comme [facility] TSH, THIRD GENERATION (test code = 2821) 1.740 UIU/ML 0.400-4.100 LIPID [id number] 04:22:41* Test Item Value Reference Range Interpretation Comme nts CHOLESTEROL (test code = 2210) 141 MG/DL <200 TRIGLYCERIDES (test code = 2232) 182 MG/DL <150 H HDL CHOLESTEROL (test code = 2220) 39 MG/DL >39 L CALC LDL CHOL (test code = 2237) 74 MG/DL <100 NOTE: CALCULATED LDL IS BASED ON KISHA-SILVA METHOD WHICHINCLUDES ADJUSTABLE TRIGLYCERIDE:VLDL CHOLESTEROL RATIO.THIS FACTOR VARIES BY MEASURED TRIGLYCERIDE AND NON-HDLCHOLESTEROL CONCENTRATIONS WITH INCREASED CALCULATED LDL SEENIN HIGHER TRIGLYCERIDE OR LOWER NON-HDL SPECIMENS. FOR MOREINFORMATION, SEE CLIENT ANNOUNCEMENT AT [email or web address] RATIO LDL/HDL (test code = 223) 1.90 RATIO <3.22 COMPREHENSIVE METABOLIC [id number] 04:22:41* Test Item Value Reference Range Interpretation Comme nts GLUCOSE (test code = 7) 471 MG/DL 70-99 H BUN (test code = 2207) 6 MG/DL 6-20 CREATININE (test code = 2213) 0.38 MG/DL 0.60-1.30 L eGFR (2020 CKD-EPI) (test code = 38909) 136 ML/MIN/1.73 >60 CALC BUN/CREAT (test code = 2234) 16 RATIO 6-28 SODIUM (test code = 2230) 135 MEQ/L 133-146 POTASSIUM (test code = 2227) 3.7 MEQ/L 3.5-5.4 CHLORIDE (test code = 2214) 100 MEQ/L 95-107 CARBON DIOXIDE (test code = 2205) 20 MEQ/L 19-31 CALCIUM (test code = 2208) 9.1 MG/DL 8.5-10.5 PROTEIN, TOTAL (test code = 2228) 6.7 G/DL 6.1-8.3 ALBUMIN (test code = 2200) 4.1 G/DL 3.5-5.2 CALC GLOBULIN (test code = 2240) 2.6 G/DL 1.9-3.7 CALC A/G RATIO (test code = 223) 1.6 RATIO 1.0-2.6 BILIRUBIN, TOTAL (test code = 2206) 0.4 MG/DL See_Comment [Automated me ssage] The system which generated this result transmitted reference range: <=1.2. The reference range was not used to interpret this result as normal/abnormal. ALKALINE PHOSPHATASE (test code = 2203) 111 U/L 40-114 AST (test code = 8) 13 U/L 9-40 ALT (test code = 2219) 13 U/L 5-40 UNLESS OTHERWISE INDICATED, ALL TESTING PERFORMED AT [facility] [address] [place] [id number] CONSULTING SALES EXECUTIVE: BHUPINDER MCNEIL M.D. CLIA NUMBER [id number] [facility] [place] [place]. [id number] HEMOGLOBIN [id number] 03:37:01* Test Item Value Reference Range Interpretation Comme nts HEMOGLOBIN A1c (test code = 69298) 10.6 % 4.2-5.6 H [employer] GUIDELINES FOR HGB A1C: PREDIABETES/INCREASED RISK . . . . . . . 5.7-6.4% DIAGNOSIS OF DIABETES . . . . . . . . . >=6.5% WITH CONFIRMATION OR APPROPRIATE SYMPTOMS NOTE: ASSAY MAY BE AFFECTED BY HEMOGLOBINOPATHIES (SICKLE CELL ANEMIA, S-C DISEASE, OTHERS) OR ARTIFICIALLY LOWERED BY DECREASED RED CELL SURVIVAL (HEMOLYTIC ANEMIAS, BLOOD LOSS, ETC.). CONSIDER ALTERNATE TESTING OR LABORATORY CONSULTATION. CBC W/AUTO DIFF WITH [id number] 03:33:42* Test Item Value Reference Range Interpretation Comme nts WBC (test code = 1001) 7.3 K/UL 3.5-11.0 RBC (test code = 1002) 4.92 M/UL 3.80-5.40 HEMOGLOBIN (test code = 1003) 13.4 G/DL 11.5-15.5 HEMATOCRIT (test code = 1004) 41.7 % 34.0-45.0 MCV (test code = 1005) 84.8 fL 80.0-99.0 MCH (test code = 1006) 27.2 PG 25.0-33.0 MCHC (test code = 1007) 32.1 G/DL 31.0-36.0 RDW (test code = 1038) 12.3 % 11.5-15.0 NEUTROPHILS (test code = 1008) 59.8 % LYMPHOCYTES (test code = 1010) 32.2 % MONOCYTES (test code = 1011) 4.8 % EOSINOPHILS (test code = 1012) 2.1 % BASOPHILS (test code = 1013) 0.7 % IMMATURE GRANULOCYTES (test code = 1036) 0.4 % NUCLEATED RBCS (test code = 1065) 0.0 /100 WBC'S See_Comment [Automated Chegga ge] The system which generated this result transmitted reference range: 0.0. The reference range was not used to interpret this result as normal/abnormal. PLATELET COUNT (test code = 1015) 217 K/UL 130-400 ABSOLUTE NEUTROPHILS (test code = 1066) 4.37 K/UL 1.50-7.50 ABSOLUTE LYMPHOCYTES (test code = 1067) 2.35 K/UL 1.00-4.00 ABSOLUTE MONOCYTES (test code = 1068) 0.35 K/UL 0.20-1.00 ABSOLUTE EOSINOPHILS (test code = 1040) 0.15 K/UL 0.00-0.50 ABSOLUTE BASOPHILS (test code = 1069) 0.05 K/UL 0.00-0.20 ABS IMMATURE GRANULOCYTES (test code = 1020) 0.03 K/UL 0.00-0.10 ABS NUCLEATED RBCS (test code = 72730) 0.00 K/UL 0.00-0.11 SARS-CoV-2 (COVID-19), RT-PCR/[id number] 15:36:12* Test Item Value Reference Range Interpretation Comments SARS-CoV-2 INTERPRETATION (test code = 06953) POSITIVE SEE NOTE A SARS-CoV-2 R NA DETECTEDPositive results are indicative of the presence of SARS-CoV-2 RNA;clinical correlation with patient history and other diagnosticinformation is necessary to determine patient infection status.Positive results do not rule out bacterial infection or co-infectionwith other viruses. Positive and negative predictive values oftesting are highly dependent on prevalence. SOURCE (test code = 57592) NOT SPECIFIED Note: Methodolog y is [facility] Real-Time RT-PCR. The expected result or reference range is NEGATIVE (Not Detected). For more information regarding COVID-19 testing to include clinicalinformation, methodology detail, intended use, FDA authorization andrecommended fact sheets for patients or healthcare providers, see [employer] Announcement: SARS-CoV-2 (COVID-19) by NAAT at URL below (note,fact sheets are provided by method given in report:[email or web address] Alternatively, see downloadable PDF fact sheet at:[email or web address] UNLESS OTHERWISE INDICATED, ALL TESTING PERFORMED [facility] [address] [place] [id number] CONSULTING SALES EXECUTIVE: EMPERATRIZ CAMPOVERDE M.D. CLIA NUMBER [id number] [place]. [id number] COMPREHENSIVE METABOLIC [id number] 16:38:00* Test Item Value Reference Range Interpretation Comme [...] code = 31A) 40 IU/L <=78 SERUM [id number] 16:29:00* Test Item Value Reference Range Interpretation Comme nts PREG SRM (test code = PGS) NEGATIVE NEGATIVE [id number] 16:29:00* Test Item Value Reference Range Interpretation Comme nts MAGNESIUM (test code = 48A) 1.9 mg/dL 1.8-2.4 CBC (INCLUDES AUTOMATED DIFFERENTIAL)2017-09-12 16:24:00* Test Item Value Reference Range Interpretation Comme nts WBC (test code = WBC) 9.0 10\\S\\3/uL [...] (test code = RBCMOR) NORMAL URINALYSIS WITH [id number] 16:20:00* Test Item Value Reference Range Interpretation Comme nts COLOR (test code = COLU) YELLOW YELLOW CLARITY (test code = CLA) CLOUDY CLEAR A GLUCOSE UR (test code = UA GLUCOSE) [...] = USPERM) /HPF NONE CT HEAD W/O [id number] 15:43:03CT brain without contrastLocation code: [id number] HISTORY: R42: DIZZINESS AND GIDDINESS COMPARISON: None.TECHNIQUE: [...] No fracture,subluxation or dislocation. Soft tissues unremarkable.Impression: Norm al study.GLUCOMETER GLUCOSE- LAB USE [id number] 09:03:00* Test Item Value Reference Range Interpretation Comme nts GLUCOMETER (test code = GMG) 319 mg/dL 70-100 H XR CHEST 2 [id number] 12:55:15PA and lateral chest, 2 viewsLocation code: [id number] HISTORY: Chest pain, hyperglycemiaCOMPARISON: 01/07/2012COMMENTS: The lungs are clear and well inflated. The costophrenic angles aresharp. The ca rdiomediastinal silhouette is unremarkable. The bones are intact.IMPRESSION: Stable chest with no acute abnormality.COMPREHENSIVE METABOLIC [id number] 12:47:00* Test Item Value Reference Range Interpretation Comme nts GLUCOSE (test code = 06D) 293 mg/dL [...] (test code = 31A) 47 IU/L <=78 [id number] 12:41:00* Test Item Value Reference Range Interpretation Comme nts COLOR (test code = COLU) Yellow YELLOW [...] (test code = LEUK) NEGATIVE NEGATIVE SERUM [id number] 12:40:00* Test Item Value Reference Range Interpretation Comme nts PREG SRM (test code = PGS) NEGATIVE NEGATIVE CBC (INCLUDES AUTOMATED DIFFERENTIAL)2017-01-09 12:35:00* Test Item Value Reference Range Interpretation Comme nts WBC (test code = WBC) 9.6 10\\S\\3/uL [...] = RBCMOR) NORMAL GLUCOMETER GLUCOSE- LAB USE [id number] 14:48:00* Test Item Value Reference Range Interpretation Comme nts GLUCOMETER (test code = GMG) 285 mg/dL 70-100 H Meter ID: [id number]: [id number] JIM[address] GLUCOMETER GLUCOSE- LAB USE [id number] 13:50:00* Test Item Value Reference Range Interpretation Comme nts GLUCOMETER (test code = GMG) 348 mg/dL 70-100 H CLEANED METERMet er ID: [id number]: [id number] [facility] METABOLIC [id number] 13:50:00* Test Item Value Reference Range Interpretation Comme nts GLUCOSE (test code = 06D) 385 mg/dL [...] = 31A) 68 IU/L <=78 URINALYSIS WITH [id number] 13:38:00* Test Item Value Reference Range Interpretation Comme nts COLOR (test code = COLU) Yellow YELLOW [...] (test code = USPERM) /HPF NONE URINE [id number] 13:35:00* Test Item Value Reference Range Interpretation Comme nts PREG UR (test code = PGU) NEGATIVE NEGATIVE CBC (INCLUDES AUTOMATED DIFFERENTIAL)2016-12-19 13:33:00* Test Item Value Reference Range Interpretation Comme nts WBC (test code = WBC) 9.1 10\\S\\3/uL [...] = RBCMOR) NORMAL GLUCOMETER GLUCOSE- LAB USE [id number] 13:02:00* Test Item Value Reference Range Interpretation Comme [facility] GLUCOMETER (test code = GMG) 420 mg/dL 70-100 H Meter ID: [id number]: [id number] JIM[address] GLUCOMETER GLUCOSE- LAB USE [id number] 13:23:00* Test Item Value Reference Range Interpretation Comme [facility] GLUCOMETER (test code = GMG) 282 mg/dL 70-100 H Meter ID: [id number]: [id number] MANRI[address] [facility] METABOLIC [id number] 12:13:00* Test Item Value Reference Range Interpretation Comme [facility] GLUCOSE (test code = 06D) 394 mg/dL [...] = 31A) 59 IU/L <=78 AMYLASE AND [id number] 12:08:00* Test Item Value Reference Range Interpretation Comme nts AMYLASE (test code = 10A) 18 U/L 28-100 L LIPASE (test code = 60A) 96 IU/L 73-393 PRO TIME AND [id number] 12:04:00* Test Item Value Reference Range Interpretation Comme nts PT (test code = TT) 12.2 s 9.8-13.6 INR (test code = INR) 1.1 INRH (test code = INRH) SUGGESTED THERAPEUTIC RANGE FOR INR: 2.5 - 3.5 For Patients with Prosthetic Valves or Patients with recurrent Thromboembolic Events 2.0 - 3.0 For Most Other Applications PTT (test code = PTT) 29.3 s 20.2-38.0 PTTH (test code = PTTH) To monitor the effectiveness of heparin, we offer the Anti-Xa (Heparin Assay). It can be used for either unfractionated or LMW Heparin. Order Code is ANTI-XA SERUM [id number] 11:58:00* Test Item Value Reference Range Interpretation Comme nts PREG SRM (test code = PGS) NEGATIVE NEGATIVE CBC (INCLUDES AUTOMATED DIFFERENTIAL)2016-12-17 11:55:00* Test Item Value Reference Range Interpretation Comme nts WBC (test code = WBC) 7.0 10\\S\\3/uL [...] = RBCMOR) NORMAL GLUCOMETER GLUCOSE- LAB USE [id number] 13:39:00* Test Item Value Reference Range Interpretation Comme nts GLUCOMETER (test code = GMG) 152 mg/dL 70-100 H CLEANED METERMet er ID: [id number]: [id number] STONE PROTOCOL [id number] 12:15:24CT ABDOMEN AND PELVIS WITHOUT CONTRAST, RENAL STONE PROTOCOL:Location code: [id number] HISTORY: Right flank painCOMPARISON: 06/16/2016TECHNIQUE: Helical CT of the abdomen and pelvis was performed withoutcontrast. Thin section axial, sagittal and coronal images were obtained.Automatic exposure control was utilized. Total DLP: 1225 mGycm.FINDINGS: There is [...] abnormality.2. Fatty infiltration of the liver.COMPREHENSIVE METABOLIC [id number] 12:03:00* Test Item Value Reference Range Interpretation Comme nts GLUCOSE (test code = 06D) 307 mg/dL [...] = 31A) 31 IU/L <=78 AMYLASE AND [id number] 11:58:00* Test Item Value Reference Range Interpretation Comme nts AMYLASE (test code = 10A) 21 U/L 28-100 L LIPASE (test code = 60A) 97 IU/L 73-393 SERUM [id number] 11:55:00* Test Item Value Reference Range Interpretation Comme nts PREG SRM (test code = PGS) NEGATIVE NEGATIVE PRO TIME AND [id number] 11:54:00* Test Item Value Reference Range Interpretation Comme nts PT (test code = TT) 10.7 s 9.8-13.6 INR (test code = INR) 1.0 INRH (test code = INRH) SUGGESTED THERAPEUTIC RANGE FOR INR: 2.5 - 3.5 For Patients with Prosthetic Valves or Patients with recurrent Thromboembolic Events 2.0 - 3.0 For Most Other Applications PTT (test code = PTT) 28.6 s 20.2-38.0 PTTH (test code = PTTH) To monitor the effectiveness of heparin, we offer the Anti-Xa (Heparin Assay). It can be used for either unfractinated or LMW Heparin. Order Code is ANTI-XA [id number] 11:48:00* Test Item Value Reference Range Interpretation Comme nts COLOR (test code = COLU) YELLOW YELLOW [...] LEUK) NEGATIVE NEGATIVE CBC (INCLUDES AUTOMATED DIFFERENTIAL)2016-08-10 11:44:00* Test Item Value Reference Range Interpretation Comme nts WBC (test code = WBC) 10.9 10\\S\\3/uL [...] RBCMOR) NORMAL CT ABDOMEN AND PELVIS WITH [id number] 18:45:31LOCATION CODE: B2CT ABDOMEN AND PELVIS WITH [...] with large amount of gastric contents.It measures approximately 20 x 8 x 10 cm. No obstructing distal gastric lesionis seen however. There is no small or large bowel obstruction. The appendix isnormal, air-filled.No free intra-abdominal air or fluid.Visualize d vascular structures enhance normally. Within the pelvis, urinary bladder is normal. Pelvic organsare normalappearing. Osseous structures demonstrate no focal abnormalities. IMPRESSION:1. Normal right lower quadrant appendix. No free air or free fluid.2. Incidental note of a significantly distended stomach. Appearance isnonspecific. No obstructing distal lesion. Correlate for symptoms ofgastroparesis, if so, this will be better evaluated on gastric emptying study,non-emergently.AMYLASE AND [id number] 18:01:00* Test Item Value Reference Range Interpretation Comme nts AMYLASE (test code = 10A) 26 U/L 28-100 L LIPASE (test code = 60A) 105 IU/L 73-393 COMPREHENSIVE METABOLIC [id number] 18:01:00* Test Item Value Reference Range Interpretation Comme nts GLUCOSE (test code = 06D) 227 mg/dL [...] (test code = 31A) 16 IU/L <=78 [id number] 17:59:00* Test Item Value Reference Range Interpretation Comme nts COLOR (test code = COLU) YELLOW YELLOW [...] LEUK) NEGATIVE NEGATIVE CBC (INCLUDES AUTOMATED DIFFERENTIAL)2016-06-16 17:53:00* Test Item Value Reference Range Interpretation Comme nts WBC (test code = WBC) 7.2 10\\S\\3/uL [...] MORPH (test code = RBCMOR) NORMAL SERUM [id number] 17:52:00* Test Item Value Reference Range Interpretation Comme nts PREG SRM (test code = PGS) NEGATIVE NEGATIVE Notes Date/Time Note Provider Source 2023-03-05 08:45:46 pXg/6bXXciMqOH9dHCRC vHU6BgdLdIlv9p ZAmSA0IyFl0cst0y9A7rUc65Ht4kKj1413 -01-02T08:45:46 Spoke with patient, c/o whitish discharge with odor, onset Saturday. Denies having any discharge. Informed patient that it would be best to come in for exam to get swabbed to ensure correct treatment. Patient unable to schedule with available appts, stated she is going on cruise next week and will be gone till 12. Going to try otc monistat 7 days and will call after getting back from cruise for appt if symptoms dont resolve with otc treatment.Jesenia Calero RN 03/05/2023 4:01 PM 31723-4Zrbllubon encounter EtgnGT2963-27-86U52:05:08Telephone encounter NoteTXT1.2.840.903701.1.13.104.2.7 .2.877165|[id number] for patient kfyt76254-0HsyhCCGVTHTPGNBMelfcdmu d C-CDA narrative [id number] Stahl [id number] [id number] T16:05:081.2.840.392409.1.72.3.15| 1.2.840.759482.1.13.104.2.7.2.7278 [id number] Jesenia Calero [facility] 2023-03-02 09:28:03 0CVqzBE1g/3uiSmxBm5C T4ZUKmhJ/8m/jl /iJgH7PvJsyq5+WwOGEUnfjmkmywt29773 -12-30T09:28:03 Yesika Kearns is a 32 year old femalePatient calling c/o yeast infection would like something called in. Please assist 63785-3Dtudfhloz encounter WglyXX2482-54-48M77:32:21Telephone encounter NoteTXT1.2.840.411460.1.13.104.2.7 .2.293045|[id number] for patient skwt35267-7LibfAYQJJQLWWBXLaujvggq d C-CDA narrative [id number] J Frank[id number] 11UNNRQXPCDTFNAIIFCKUMXA3768-68-12 T09:32:211.2.840.148420.1.72.3.15| 1.2.840.282865.1.13.104.2.7.2.7278 [id number] Maricel Sutherland [facility]
[2023-05-22 16:19] LABS: Absolute Basophils 0.1 K/uL (0-0.5); Absolute Lymphocytes (CBC) 1.2 K/uL (0.7-4.9); Absolute Monocytes 0.7 K/uL (0.1-1.3); Absolute Neutrophil 9.9 K/uL (1.8-8.0); Basophils % 0.6 % (0-1.3); Eosinophils % 0.4 % (0-4.4); Hematocrit 40.1 % (36.0-45.0); Hemoglobin 13.4 g/dL (12.0-15.0); Lymphocytes % 9.8 % (15.3-44.8); MCH 26.9 pg (27.0-35.0); MCHC 33.3 g/dL (32.0-36.0); MCV 80.9 fL (80-100); MPV 7.4 fL (7.6-11.3); Monocytes % 5.5 % (3.3-12.3); Neutrophils % 83.7 % (41.7-73.7); Nucleated Red Blood Cells % 0.3 % (0-0); Platelets 262 thou/uL (152-406); RBC Red Blood Cell Count 4.96 M/uL (3.86-4.86); Red Cell Distribution Width 13.7 % (12.1-15.2)
[2023-05-22 16:43] LABS: Albumin 3.4 g/dL (3.4-5.0); Albumin/Globulin Ratio 0.8 (1.1-1.8); Anion Gap 11.8 mEq/L (5.0-15.0); Bilirubin Total 1.7 mg/dL (0.2-1.0); Globulin 4.3 g/dL (2.3-3.5); Potassium 3.8 mEq/L (3.5-5.1); Protein, Total 7.7 g/dL (6.4-8.2)
[2023-05-22 17:06] LABS: Specific Gravity 1.023 (1.005-1.030)
[2023-05-22 17:16] LABS: Specific Gravity 1.023 (1.005-1.030); Sqamous Epithelial <5 /HPF (None Seen); Urine Bacteria 20-50 /HPF (<20); Urine Bilirubin NEGATIVE (Negative); Urine Blood 2+ (Negative); Urine Clarity Extremely Turbid (Clear); Urine Color Light-Orange (Yellow); Urine Glucose 4+ (Over) (Negative); Urine Ketones 4+ (Over) (Negative); Urine Microscopic Reflex YN ORDER UMIC; Urine Nitrite NEGATIVE (Negative); Urine Protein 2+ (Negative); Urine RBC >50 /HPF (None Seen); Urine Urobilinogen Normal (Normal); Urine WBC >50 /HPF (<5); Urine pH 6.5 (5.0-7.0)
[2023-05-22 17:17] LABS: Urine Culture Reflex Order REFLEXED; Urine Mucus Slight /HPF (None Seen)
--- NOTE | 2023-05-22 17:48 | RAD REPORT ---
EXAM DESCRIPTION: CT - Abdomen Pelvis Wo Contrast - 05/22/2023 5:22 pm CLINICAL HISTORY: Abdominal pain flank pain COMPARISON: 2020 TECHNIQUE: Computed axial tomography of the abdomen and pelvis was obtained. IV and oral contrast we re not requested. All CT scans are performed using dose optimization technique as appropriate and may include automated exposure control or mA/KV adjustment according to patient size. FINDINGS: The evaluation of solid organs, vessels and bowel is limited secondary to the lack of con trast administration. The liver is borderline enlarged. Spleen is mildly enlarged. Pancreas and adrenals are grossly normal. Tiny right renal calculus. Bilateral extrarenal pelves. Mild stranding adjacent to the right renal pe lvis and proximal right ureter The appendix is normal. There is no evidence of diverticulitis. No adnexal mass A small umbilical hernia IMPRESSION: Mild splenomegaly Mild stranding adjacent to the right renal pelvis and proximal right ureter may indicate inflammation Tiny nonobstructing right renal calculus
--- NOTE | 2023-05-22 17:49 | EDPHYS ---
Physician Documentation [facility] Name: Jessica Kearns Age: 32 yrs Sex: Female : 1990 Arrival Date: 05/22/2023 Time: 15:54 Bed 17 Private MD: ED Physician Gloria Martinez HPI: 05/21 16:04 This 32 yrs old Female presents to ER via EMS with complaints of urinary frequency and sp3 flank pain bilateral. 16:04 32-year-old female with a history of diabetes, bipolar disease prior UTIs now presents sp3 to the ED with chief complaint urinary frequency and urgency and bilateral flank pain/low back pain. Patient denies prior history of kidney stones or any other pathology. She denies CHEST PAIN COORDINATOR symptoms including vaginal bleeding or discharge. LMP was 3 days ago and she is not sexually active currently and denies . Review of systems she denies headache, fever, URI symptoms, chest pain, shortness of breath, upper back pain, upper abdominal pain, rash, syncope, near syncope, or any other signs or symptoms on ROS at this time.. Historical: - Allergies: 16:03 CRANBERRY; mb9 16:03 PENICILLINS; mb9 16:03 Pomegranate; mb9 - Home Meds: 16:03 Lantus U-100 Insulin subcutaneous Sub-Q [Active]; Abilify oral [Active]; mb9 - PMHx: 16:03 Diabetes - IDDM; Diabetes - NIDDM; Bipolar disorder; mb9 - PSHx: 16:03 None; mb9 - Immunization history:: Adult Immunizations up to date. - Social history:: Smoking status: Patient denies any tobacco usage or history of. ROS: 16:07 Constitutional: Negative for fever, chills, and weight loss, Eyes: Negative for injury, sp3 pain, redness, and discharge, ENT: Negative for injury, pain, and discharge, Neck: Negative for injury, pain, and swelling, Cardiovascular: Negative for chest pain, palpitations, and edema, Respiratory: Negative for shortness of breath, cough, wheezing, and pleuritic chest pain, Abdomen/GI: Negative for abdominal pain, nausea, vomiting, diarrhea, and constipation, MS/Extremity: Negative for injury and deformity, Skin: Negative for injury, rash, and discoloration, Neuro: Negative for headache, weakness, numbness, tingling, and seizure, Psych: Negative for depression, anxiety, suicide ideation, homicidal ideation, and hallucinations, Allergy/Immunology: Negative for hives, rash, and allergies, Endocrine: Negative for neck swelling, polydipsia, polyuria, polyphagia, and marked weight changes, Hematologic/Lymphatic: Negative for swollen nodes, abnormal bleeding, and unusual bruising, 16:07 All other systems are negative, Exam: 16:07 Constitutional: This is a well developed, well nourished patient who is awake, alert, sp3 and in no acute distress. Head/Face: Normocephalic, atraumatic. Eyes: Pupils equal round and reactive to light, extra-ocular motions intact. Lids and lashes normal. Conjunctiva and sclera are non-icteric and not injected. Cornea within normal limits. Periorbital areas with no swelling, redness, or edema. ENT: Nares patent. No nasal discharge, no septal abnormalities noted. External auditory canals are clear. Oropharynx with no redness, swelling, or masses, exudates, or evidence of obstruction, uvula midline. Mucous membranes moist. Neck: Trachea midline, no thyromegaly or masses palpated, and no cervical lymphadenopathy. Supple, full range of motion without nuchal rigidity, or vertebral point tenderness. No Meningismus. Chest/axilla: Normal chest wall appearance and motion. Nontender with no deformity. No lesions are appreciated. Cardiovascular: Regular rate and rhythm with a normal S1 and S2. No gallops, murmurs, or rubs. Normal PMI, no JVD. No pulse deficits. Respiratory: Lungs have equal breath sounds bilaterally, clear to auscultation and percussion. No rales, rhonchi or wheezes noted. No increased work of breathing, no retractions or nasal flaring. Abdomen/GI: Soft, non-tender, with normal bowel sounds. No distension or tympany. No guarding or rebound. No evidence of tenderness throughout. Skin: Warm, dry with normal turgor. Normal color with no rashes, no lesions, and no evidence of cellulitis. MS/ Extremity: Pulses equal, no cyanosis. Neurovascular intact. Full, normal range of motion. Neuro: Awake and alert, GCS 15, oriented to person, place, time, and situation. Cranial nerves II-XII grossly intact. Motor strength 5/5 in all extremities. Sensory grossly intact. Cerebellar exam normal. Normal gait. Psych: Awake, alert, with orientation to person, place and time. Behavior, mood, and affect are within normal limits. 16:07 Back: Mild CVA tenderness bilaterally but slightly lower., Vital Signs: 16:01 BP 95 / 56; Pulse 102; Resp 18; Temp 97.4(O); Pulse Ox 97% on R/A; Weight 83.01 kg; mb9 Height 4 ft. 11 in. ; Pain 9/10; 16:34 BP 92 / 57; Pulse 99; Resp 18; Temp 98.2(TE); Pulse Ox 97% ; nj1 16:54 BP 99 / 43; Pulse 98; Resp 16; Pulse Ox 99% ; nj1 17:39 BP 91 / 51; Pulse 95; Resp 17; Pulse Ox 98% on R/A; nj1 18:18 BP 102 / 68; Pulse 95; Resp 17; Pulse Ox 97% on R/A; nj1 19:04 BP 102 / 66; Pulse 93; Resp 17; Pulse Ox 96% on R/A; nj1 16:01 Body Mass Index 36.96 (83.01 kg, 149.86 cm) mb9 16:01 Pain Scale: Adult mb9 MDM: 16:01 Patient medically screened. sp3 16:08 Data reviewed: vital signs, nurses notes, lab test result(s), radiologic studies. ED sp3 course: 32-year-old female with urinary symptoms and flank pain. Differential diagnosis includes UTI, high tract disease, pyelonephritis, ureterolithiasis/kidney stone spectrum, among others. I am not highly suspicious for GI or CHEST PAIN COORDINATOR pathology. Will obtain laboratory values, urine analysis and hCG as well as CT scan of the abdomen pelvis noncontrast stone protocol. Disposition pending workup and patient course. Probable discharge home on antibiotics as UTI is a leading diagnosis.. 17:46 ED course: Urinalysis demonstrates infection and clinically likely is high tract sp3 disease versus pyelonephritis. CT scan demonstrates a "tiny" uretral stone at the right UVJ. There is hydronephrosis behind that. I explained to the patient the danger of having an infection plus a kidney stone particularly with urine behind the kidney stone. I offered her admission with IV antibiotics and urology consultation versus going home after a single IV dose of antibiotics here in the ED with strict instructions to return for any worsening condition, fever, pain or any concern at all. After consideration with her fianc, patient elects to go home secondary to childcare she states she will return for any of the after mentioned worsening scenarios. Since Levaquin has a similar bioavailability orally versus IV, we will choose that is the preferred antibiotic. Will give 1 dose of Levaquin IV and discharge her home on oral Levaquin as well as Flomax to help get that distal stone out. Follow-up will be with Dr. Schultz. Patient understands risks of going home versus being admitted and chooses to go home at this time.. 05/21 16:01 Order name: CBC with Diff; Complete Time: 16:38 sp3 05/21 16:01 Order name: CMP; Complete Time: 17:03 sp3 05/21 16:01 Order name: Lipase; Complete Time: 17:03 sp3 05/21 16:01 Order name: Test, Urine; Complete Time: 17:18 sp3 05/21 16:01 Order name: Urinalysis w/ reflexes; Complete Time: 17:38 sp3 05/21 17:31 Order name: Urine Culture EDSC 05/21 16:01 Order name: CT Abd/Pelvis - Without Contrast; Complete Time: 17:50 sp3 05/21 16:01 Order name: IV Saline Lock; Complete Time: 16:17 sp3 05/21 16:01 Order name: Labs collected and sent; Complete Time: 16:17 sp3 Administered Medications: 16:22 Drug: NS 0.9% IV 1000 ml IV at 1 bolus Per protocol; 1000 mL bolus Route: IV; Rate: 1 nj1 bolus; Site: right antecubital; 17:30 Follow up: Response: No adverse reaction; IV Status: Completed infusion; IV Intake: nj1 1000ml 18:17 Drug: levofloxacin IVPB 500 mg 100 ml IVPB once over 60 mins Volume: 100 ml; Route: nj1 IVPB; Infused Over: 60 mins; Site: right antecubital; 19:27 Follow up: Response: No adverse reaction; IV Status: Completed infusion; IV Intake: jw7 100ml Disposition Summary: 05/22/23 17:48 Discharge Ordered Notes: Location: Home sp3 Condition: Stable sp3 Diagnosis - UTI, kidney stone sp3 Followup: sp3 - With: Jose Schultz MD - When: Upon discharge from the Emergency Department - Reason: Further diagnostic work-up, Recheck today's complaints Discharge Instructions: - Discharge Summary Sheet sp3 - Kidney Stones sp3 - Urinary Tract Infection, Adult sp3 Forms: - Medication Reconciliation Form sp3 - Thank You Letter sp3 - Antibiotic Education sp3 - Prescription Opioid Use sp3 - Patient Portal Instructions sp3 - Leadership Thank You Letter sp3 Prescriptions: - Flomax 0.4 mg Oral capsule - take 1 capsule ORAL route every 24 hours; 3 capsule; Refills: 0, Product sp3 Selection Permitted - levofloxacin 500 mg Oral tablet - take 1 tablet ORAL route once daily for 7 days; 7 tablet; Refills: 0, Product sp3 Selection Permitted Signatures: Dispatcher [employer] EDMS Gloria Martinez MD MD sp3 Macy King RN RN mb9 Lenora Martin RN RN nj1 Alice Bautista RN jw7 Corrections: (The following items were deleted from the chart) 17:51 17:46 ED course: Urinalysis demonstrates infection and clinically likely is high tract sp3 disease versus pyelonephritis. CT scan also demonstrates on my measurement a 4.9 mm kidney stone at the right UVJ. There is hydronephrosis behind that. I explained to the patient the danger of having an infection plus a kidney stone particularly with urine behind the kidney stone. I offered her admission with IV antibiotics and urology consultation versus going home after a single IV dose of antibiotics here in the ED with strict instructions to return for any worsening condition, fever, pain or any concern at all. After consideration with her fianc, patient elects to go home secondary to childcare she states she will return for any of the after mentioned worsening scenarios. Since Levaquin has a similar bioavailability orally versus IV, we will choose that is the preferred antibiotic. Will give 1 dose of Levaquin IV and discharge her home on oral Levaquin as well as Flomax to help get that distal stone out. Follow-up will be with Dr. Schultz. Patient understands risks of going home versus being admitted and chooses to go home at this time.. sp3
--- NOTE | 2023-05-22 17:49 | ER ---
Nurse's Notes [facility] Name: Jessica Kearns Age: 32 yrs Sex: Female : 1990 Arrival Date: 05/22/2023 Time: 15:54 Bed 17 Private MD: Diagnosis: UTI, kidney stone Presentation: 05/21 16:01 Chief complaint: EMS states: "toned out from bilateral flank pain that is 9/10 and mb9 urinary frequency that started yesterday". Coronavirus screen: At this time, the client does not indicate any symptoms associated with coronavirus-19. Ebola Screen: No symptoms or risks identified at this time. Initial Sepsis Screen: Does the patient meet any 2 criteria? No. Patient's initial sepsis screen is negative. Does the patient have a suspected source of infection? No. Patient's initial sepsis screen is negative. Risk Assessment: Do you want to hurt yourself or someone else? Patient reports no desire to harm self or others. Onset of symptoms was May 22, 2023. 16:01 Method Of Arrival: EMS: [facility] mb9 16:01 Acuity: BAYLEE 2 mb9 Triage Assessment: 16:10 General: Appears in no apparent distress. comfortable, Behavior is calm, cooperative, nj1 appropriate for age. Pain: Complains of pain in Flanks, bilaterally Pain currently is 9 out of 10 on a pain scale. Neuro: Level of Consciousness is awake, alert, obeys commands, Oriented to person, place, time, situation. Cardiovascular: Patient's skin is warm and dry. Respiratory: Airway is patent Respiratory effort is even, unlabored. : Reports pain flank(s). Historical: - Allergies: 16:03 CRANBERRY; mb9 16:03 PENICILLINS; mb9 16:03 Pomegranate; mb9 - Home Meds: 16:03 Lantus U-100 Insulin subcutaneous Sub-Q [Active]; Abilify oral [Active]; mb9 - PMHx: 16:03 Diabetes - IDDM; Diabetes - NIDDM; Bipolar disorder; mb9 - PSHx: 16:03 None; mb9 - Immunization history:: Adult Immunizations up to date. - Social history:: Smoking status: Patient denies any tobacco usage or history of. Screenin:23 [facility] ED Fall Risk Assessment (Adult) History of falling in the last 3 months, nj1 including since admission No falls in past 3 months (0 pts) Confusion or Disorientation No (0 pts) Intoxicated or Sedated No (0 pts) Impaired Gait No (0 pts) Mobility Assist Device Used No (0 pt) Altered Elimination No (0 pt) Score/Fall Risk Level 0 - 2 = Low Risk Oriented to surroundings, Maintained a safe environment, Hourly rounding (assess needs \\T\\ fall precautionary measures) done. Abuse screen: Denies threats or abuse. Denies injuries from another. Nutritional screening: No deficits noted. Tuberculosis screening: No symptoms or risk factors identified. Assessment: 16:10 Reassessment: See triage assessment. [facility] 16:55 Reassessment: Patient appears in no apparent distress at this time. Patient and/or nj1 family updated on plan of care and expected duration. Pain level reassessed. Patient is alert, oriented x 3, equal unlabored respirations, skin warm/dry/pink. Urine sample provided. 17:40 Reassessment: Patient appears in no apparent distress at this time. Patient and/or nj1 family updated on plan of care and expected duration. Pain level reassessed. Patient is alert, oriented x 3, equal unlabored respirations, skin warm/dry/pink. 18:19 Reassessment: Patient appears in no apparent distress at this time. Patient and/or nj1 family updated on plan of care and expected duration. Pain level reassessed. Patient is alert, oriented x 3, equal unlabored respirations, skin warm/dry/pink. 18:19 Reassessment: DC on hold, ABX infusing. wy1 19:00 General: Appears in no apparent distress. uncomfortable, Behavior is calm, cooperative. jw7 19:00 Pain: Complains of pain in Jorge Luis Flank Pain Pain does not radiate. Pain currently is 3 jw7 out of 10 on a pain scale. Quality of pain is described as sharp, Pain began suddenly, Is continuous. Neuro: Level of Consciousness is awake, alert, obeys commands, Oriented to person, place, time, situation. Cardiovascular: Heart tones S1 S2 present Capillary refill < 3 seconds Clubbing of nail beds is absent JVD is absent Patient's skin is warm and dry. Respiratory: Airway is patent Trachea midline Respiratory effort is even, unlabored, Respiratory pattern is regular, symmetrical, Breath sounds are clear bilaterally. GI: Abdomen is round non-distended, Bowel sounds present X 4 quads. Abd is soft X 4 quads Abdomen is tender to palpation in right lower quadrant and left lower quadrant. : No deficits noted. No signs and/or symptoms were reported regarding the genitourinary system. EENT: No deficits noted. No signs and/or symptoms were reported regarding the EENT system. Derm: Skin is intact, is healthy with good turgor, Skin is dry, Skin is normal, Skin temperature is warm. Musculoskeletal: Circulation, motion, and sensation intact. Range of motion: intact in all extremities. Vital Signs: 16:01 BP 95 / 56; Pulse 102; Resp 18; Temp 97.4(O); Pulse Ox 97% on R/A; Weight 83.01 kg; mb9 Height 4 ft. 11 in. ; Pain 9/10; 16:34 BP 92 / 57; Pulse 99; Resp 18; Temp 98.2(TE); Pulse Ox 97% ; nj1 16:54 BP 99 / 43; Pulse 98; Resp 16; Pulse Ox 99% ; nj1 17:39 BP 91 / 51; Pulse 95; Resp 17; Pulse Ox 98% on R/A; nj1 18:18 BP 102 / 68; Pulse 95; Resp 17; Pulse Ox 97% on R/A; nj1 19:04 BP 102 / 66; Pulse 93; Resp 17; Pulse Ox 96% on R/A; nj1 16:01 Body Mass Index 36.96 (83.01 kg, 149.86 cm) mb9 16:01 Pain Scale: Adult mb9 ED Course: 16:00 Patient arrived in ED. sp3 16:00 Gloria Martinez MD is Attending Physician. sp3 16:03 Triage completed. mb9 16:03 Arm band placed on. mb9 16:06 Lenora Martin, LILLY is Primary Nurse. nj1 16:10 Inserted saline lock: 22 gauge in right antecubital area, using aseptic technique. nj1 Blood collected. 16:24 Patient has correct armband on for positive identification. Bed in low position. Call nj1 light in reach. Provided Education on: call light, fall precautions. 16:40 Notified ED physician of vital signs. nj1 17:22 CT Abd/Pelvis - Without Contrast In Process Unspecified. EDMS 17:48 Jose Schultz MD is Referral Physician. sp3 19:04 Report given to Alice CARR. nj1 19:27 No provider procedures requiring assistance completed. IV discontinued, intact, jw7 bleeding controlled, No redness/swelling at site. Pressure dressing applied. Administered Medications: 16:22 Drug: NS 0.9% IV 1000 ml IV at 1 bolus Per protocol; 1000 mL bolus Route: IV; Rate: 1 nj1 bolus; Site: right antecubital; 17:30 Follow up: Response: No adverse reaction; IV Status: Completed infusion; IV Intake: nj1 1000ml 18:17 Drug: levofloxacin IVPB 500 mg 100 ml IVPB once over 60 mins Volume: 100 ml; Route: nj1 IVPB; Infused Over: 60 mins; Site: right antecubital; 19:27 Follow up: Response: No adverse reaction; IV Status: Completed infusion; IV Intake: jw7 100ml Medication: 19:27 VIS not applicable for this client. jw7 Intake: 17:30 IV: 1000ml; Total: 1000ml. nj1 19:27 IV: 100ml; Total: 1100ml. jw7 Outcome: 17:48 Discharge ordered by . sp3 19:27 Discharged to home ambulatory, jw7 19:27 Condition: stable 19:27 Discharge instructions given to patient, Instructed on discharge instructions, follow up and referral plans. medication usage, Demonstrated understanding of instructions, follow-up care, medications, Prescriptions given X 2, 19:28 Patient left the ED. jw7 Signatures: Dispatcher [employer] EDKY Gloria Martinez MD MD sp3 Waits, Jodi, RN RN jw7 Macy King RN RN mb9 Lenora Martin RN RN nj1 Corrections: (The following items were deleted from the chart) 16:04 16:01 Pulse 90bpm; Resp 18bpm; Pulse Ox 97% RA; Temp 97.4F Oral; 83.01 kg; Height 4 ft. mb9 11 in.; BMI: 36.9; Pain 9/10, Adult; mb9 16:12 16:01 Pulse 86bpm; Resp 18bpm; Pulse Ox 97% RA; Temp 97.4F Oral; 83.01 kg; Height 4 ft. mb9 11 in.; BMI: 36.9; Pain 9/10, Adult; mb9 16:24 16:01 Acuity: BAYLEE 3 mb9 mb9 16:24 16:01 BP 95 / 56; Pulse 86bpm; Resp 18bpm; Pulse Ox 97% RA; Temp 97.4F Oral; 83.01 kg; mb9 Height 4 ft. 11 in.; BMI: 36.9; Pain 910, Adult; 9 16:44 16:40 General: Appears in no apparent distress. comfortable, Behavior is calm, nj1 cooperative, appropriate for age, [facility] 16:44 16:40 Pain: nj1 wy1 19:26 19:00 General: Appears in no apparent distress. uncomfortable, Behavior is calm, jw7 cooperative, jw7
[2023-05-22 19:58] VITALS: BP 102/66; TEMP 98.2; O2SAT 96
== END ==
LOC: ER 15:54
DX: N39.0 Urinary tract infection, site not specified (principal); N20.0 Calculus of kidney; E11.9 Type 2 diabetes mellitus without complications; Z79.4 Long term (current) use of insulin; F31.9 Bipolar disorder, unspecified; Z88.0 Allergy status to penicillin; Z91.018 Allergy to other foods
CPT/HCPCS: 87088; 85025; 81001; 87086; 36415; 81025; 83690; 80053; 74176; J7030